=== PATIENT | male | born 1940 | race Caucasian/White ===

== ENCOUNTER 2017-05-29 17:20 | Emergency (ER) | payer MEDICARE ==
[2017-05-29] MEDS ORDERED: Morphine 4 MG/ML Carpuject ONE (17:54)
[2017-05-29] MEDS ORDERED: Ondansetron HCl/PF 4 MG/2 ML Vial ONE (17:54)
[2017-05-29 17:58] LABS: #Basophils 0.1 thou/uL (0.0-0.2); #Eosinphils 0.3 thou/uL (0.0-0.7); #Monocytes 0.8 thou/uL (0.11-0.59); #Neutrophils 4.5 thou/uL (1.40-6.50); %Eosinophils 3.4 % (0.0-10.0); %Lymphocytes 25.9 % (21.0-51.0); %Monocytes 10.3 % (0.0-10.0); Hematocrit 36.8 % (42.0-52.0); Mean Platelet Volume 8.1 fL (7.4-10.4); Red Blood Cell (RBC) Count 3.86 mill/uL (4.70-6.10); White Blood Cell (WBC) Count 7.6 thou/uL (4.8-10.8)
[2017-05-29 18:06] LABS: PTT 33.1 SEC (22.9-36.1); Prothrombin Time 13.3 SEC (12.0-14.7)
[2017-05-29 18:10] LABS: Anion Gap 15 mmol/L (10-20); BUN (Urea Nitrogen) 19 mg/dL (8.4-25.7); Calc. Creatinine Clearance 0 mL/min (70-130); Calcium 8.6 mg/dL (7.8-10.44); Carbon Dioxide 21 mmol/L (23-31); Chloride 105 mmol/L (98-107); Estimated GFR-MDRD 48
[2017-05-29] MEDS ORDERED: Lidocaine 1% 20 ML MDV ONE (18:15)
--- NOTE | 2017-05-29 19:10 | RAD ---
RIGHT WRIST THREE VIEWS 05/29/17 HISTORY: Fall. Right wrist injury. FINDINGS: Impacted comminuted fracture of the distal radius includes a sagittally oriented intra-articular comp onent to the far medial margin of the distal radius with 0.1 cm gap and no significant step-off. Ther e is resultant dorsal tilt. Inclination is maintained. Nondisplaced ulnar styloid avulsion is also ap parent. Osteoarthritic changes are most pronounced at the first carpometacarpal joint. IMPRESSION: Comminuted intra-articular distal right radial fracture with dorsal tilt. POS: [facility]
--- NOTE | 2017-05-29 19:54 | RAD ---
RIGHT WRIST THREE VIEWS 05/29/17 at 1921 hours. HISTORY: Wrist fracture. Reduction. COMPARISON: Earlier exam on the same date. FINDINGS/IMPRESSION: Overlying fiberglass splint is now in place. Dorsal tilt of the comminuted intra-articular distal rig ht radial fracture has been reduced partially. Inclination is maintained. Mild impaction persists. Other findings are stable. POS: [facility]
== END 2017-05-29 19:50 | disposition home or self-care (01) ==
LOC: SCSER 17:20
DX: S52.501A Unspecified fracture of the lower end of right radius, initial encounter for closed fracture (principal); E11.9 Type 2 diabetes mellitus without complications; E78.5 Hyperlipidemia, unspecified; I10 Essential (primary) hypertension; Z87.891 Personal history of nicotine dependence; Z86.73 Personal history of transient ischemic attack (TIA), and cerebral infarction without residual deficits; Z79.84 Long term (current) use of oral hypoglycemic drugs; Z79.899 Other long term (current) drug therapy; W19.XXXA Unspecified fall, initial encounter; Y92.096 Garden or yard of other non-institutional residence as the place of occurrence of the external cause
CPT/HCPCS: 25605; 80048; 85025; 85610; 85730; 96374; 96375; 99406; J2001; J2270; J2405

== ENCOUNTER 2017-06-06 08:50 | Inpatient (IN) | payer MEDICARE ==
[2017-06-06 09:27] LABS: #Eosinphils 0.1 thou/uL (0.0-0.7); #Neutrophils 8.8 thou/uL (1.40-6.50); %Basophils 0.4 % (0.0-1.0); %Eosinophils 0.5 % (0.0-10.0); %Lymphocytes 9.4 % (21.0-51.0); %Monocytes 9.1 % (0.0-10.0); Hematocrit 36.9 % (42.0-52.0); Mean Platelet Volume 6.7 fL (7.4-10.4); White Blood Cell (WBC) Count 10.9 thou/uL (4.8-10.8)
[2017-06-06 09:38] LABS: Lactic Acid - Sepsis 1.9 mmol/L (0.5-2.2)
[2017-06-06 09:42] LABS: ALT (SGPT) 9 U/L (8-55); AST (SGOT) 15 U/L (5-34); Alkaline Phosphatase 48 U/L (40-150); Anion Gap 17 mmol/L (10-20); BUN (Urea Nitrogen) 31 mg/dL (8.4-25.7); Bilirubin, Total 0.5 mg/dL (0.2-1.2); CK (CPK) 102 U/L (30-200); Calc. Creatinine Clearance 0 mL/min (70-130); Calcium 8.9 mg/dL (7.8-10.44); Carbon Dioxide 21 mmol/L (23-31); Chloride 102 mmol/L (98-107); Estimated GFR-MDRD 29; Globulin 3.2 g/dL (2.4-3.5); Lipase 11 U/L (8-78); Protein, Total 6.9 g/dL (5.8-8.1)
--- NOTE | 2017-06-06 09:43 | RAD ---
RADIOGRAPH CHEST 1 VIEW: Date: 06/06/17. Time: 9:11 a.m. HISTORY: A 77-year-old male with dyspnea and fever. COMPARISON: 02/06/16. FINDINGS: Again noted are the sternotomy wires. Cardiac size is at the upper limits of normal. There are bila teral new predominantly interstitial infiltrates, with central predominance. These infiltrates are m ore patchy and alveolar in certain locations on the right. There is no pneumothorax. Lateral costop hrenic angles are not significantly effaced. IMPRESSION: 1. Bilateral paracentral infiltrates, predominantly interstitial, asymmetrically worse on the right side than left. 2. Given the history of fever, pneumonia is favored over noncardiogenic pulmonary edema. 3. Followup is recommended. ALEX [] POS: [facility]
[2017-06-06 09:45] LABS: Troponin I 0.119 ng/mL (< 0.028)
[2017-06-06] MEDS ORDERED: Acetaminophen 500 MG TAB ONE (10:05)
[2017-06-06 11:16] LABS: Bilirubin Negative (Negative); Blood, Urine Negative (Negative); Glucose, Urine (Dipstick) Negative (Negative); Ketone, Urine Negative (Negative); Nitrite Negative (Negative); Protein, Urine (Dipstick) 100 mg/dL (Neg-Trace); Urobilinogen 0.2 mg/dL (0.2-1.0)
[2017-06-06 11:31] LABS: Bacteria/HPF Rare-Few HPF (None Seen); RBC/HPF 0-3 HPF (0-3); Squamous Epithelial 0-3 HPF (0-3); WBC/HPF 0-3 HPF (0-3)
[2017-06-06 11:32] LABS: Hyaline Casts/LPF 0-3 HYALINE CAST LPF (0-3 Hyaline)
[2017-06-06 12:45] VITALS: BMI 25.7
[2017-06-06] MEDS ORDERED: Sodium Chloride 0.9% 1,000 ML IV SCH ×2 (12:45→13:26)
[2017-06-06] MEDS ORDERED: Ondansetron ODT 4 MG TAB SL PRN (12:45)
[2017-06-06] MEDS ORDERED: Acetaminophen 325 MG TAB PO PRN (12:45)
[2017-06-06] MEDS ORDERED: Ondansetron HCl/PF 4 MG/2 ML Vial IVP PRN (12:45)
--- NOTE | 2017-06-06 14:09 | HP ---
DATE OF ADMISSION: 06/06/2017 HISTORY OF PRESENT ILLNESS: This is a 77-year-old white male with history of hypertension, hyperlipi demia, diabetes, and tobacco abuse who is being admitted for pneumonia/shortness of breath. The noreen ent was doing relatively well until 1 week ago where he sustained a fall. At that time it was discov ered that he had a right wrist fracture and was seen by Dr. Camejo and his right wrist was placed in splint. He recently also restarted smoking. Lately he has been somewhat depressed. The of lupe mattson 's anniversary was in January. Over the past several days, he has been having increasing cough, congestion, shortness of breath and this morning presented to the emergency room where he was diagnos ed with bilateral pneumonia. PAST MEDICAL HISTORY: Do not resuscitate, hyperlipidemia, hypertension, diabetes, chronic back pain, neck pain, sciatica, bowel disorder, neuropathy, TIA, coronary artery disease, hypothyroid. PAST SURGICAL HISTORY: Include back surgery x1, status post colectomy for mesenteric ischemia by Dr. Lynch, cardiac catheterization in 08/2013 with three-vessel disease noted, a coronary artery bypass x4 in 08/[address] Cameron, [address] Snyder, right renal artery stent placed by Dr. Rachel soto on 03/2016. FAMILY HISTORY: Father, unknown medical history. Mother with diabetes. Maternal grandmother with s ome unknown cancer and multiple other family members with cancer. SOCIAL HISTORY: He began smoking at the age of 18 years up until 2007 when he stopped. He was hospi talized at that time for a pneumonia. He did well until recently in 2016 when he began smoking again . This may be the reason for his pneumonia. The patient is very interesting. 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 He is now, lives b y himself, does his yard work. 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 He cares for dogs, cats and wild animals at home. He has 1 son and 1 daughter, Brandon. ALLERGIES: None. REVIEW OF SYSTEMS: As above. MEDICATIONS: Aspirin 325 mg daily, fluoxetine 20 mg daily, levothyroxine 75 mg daily, metoprolol 25 1/2 p.o. daily, metformin 1000 b.i.d., lovastatin 20 daily, Ambien 10 at bedtime, [place] 7.5/325 p.o. b.i.d. p.r.n., Lyrica 150 p.o. b.i.d., clonidine 0.1 mg daily p.r.n. elevated blood pressure. PHYSICAL EXAMINATION: VITAL SIGNS: Temperature 98.3, pulse 68, respirations 18, pulse ox 88, blood pressure 103/48. GENERAL: The patient has a marked productive cough. HEENT: Clear. HEART: Regular rate and rhythm. LUNGS: Lungs have bilateral rhonchi and rales. ABDOMEN: Soft. EXTREMITIES: With no edema. : Colostomy in place. LABORATORY DATA: White count 10.9, H&H 11 and 36, platelet 161. Sodium 136, potassium 4.4, creatini ne 2.1, BUN 31, glucose 194, troponin I 0.119, BNP 576. Chest x-ray; bilateral infiltrates, right worse than left. ASSESSMENT: 1. Bilateral pneumonia, most likely a large part due to him restarting his tobacco abuse. 2. Tobacco abuse. 3. Anxiety/depression, particularly due to the passing of his in 01/2016. 4. Hypertension. 5. Hyperlipidemia. 6. Diabetes. 7. Chronic low back pain. 8. Coronary artery disease x3. 9. Hypothyroid. 10. Bowel disorder with colostomy by Dr. Lynch. 11. Fracture, right wrist. PLAN: 1. Hydrate. 2. Albuterol neb treatments q.6h. 3. IV Levaquin. 4. Do not resuscitate. 5. PT in the a.m.
[2017-06-06] MEDS: HYDROcodone/Acetaminophen 7.5/325 mg Tablet PO PRN ×2 (15:19→21:29)
[2017-06-06] MEDS ORDERED: Simvastatin 5 MG TAB PO SCH (17:00)
[2017-06-06] MEDS ORDERED: metFORMIN 500 MG TAB PO SCH (17:00)
[2017-06-06] MEDS ORDERED: Acetaminophen 1,000 MG in Premix Bag 1 BAG IVPB SCH (17:00)
[2017-06-06] MEDS ORDERED: predniSONE 20 MG TAB PO SCH (18:30)
[2017-06-06] MEDS: Sodium Chloride 0.45% 1,000 ML IV SCH (18:45)
[2017-06-06] MEDS: cefTRIAXone\\ROCEPHIN 2 GM in Sodium Chloride 0.9% 100 ML IVPB SCH (18:46)
[2017-06-06] MEDS ORDERED: Albuterol Sulfate 1.25 MG/3 ML NEB NEB SCH (19:00)
[2017-06-06] MEDS ORDERED: Azithromycin 500 MG in Sodium Chloride 0.9% 250 ML 250 ML IVPB SCH (20:00)
--- NOTE | 2017-06-06 21:24 | CON ---
DATE OF CONSULTATION: 06/06/2017 SERVICE: Pulmonary Medicine. REASON FOR CONSULTATION: Respiratory failure. HISTORY OF PRESENT ILLNESS: The patient is a 77-year-old white male with past medical history significant for a little bit of COPD. He was in his usual state of health until roughly 3 days ago. He started having myalgia, malaise, and fevers. They were initially 101, but it spiked up to 103. Several people in the house have been sick with a viral prodrome. He currently denies any nausea, vomiting, or diarrhea. He has a colostomy, but there has been no change to his output. He has not had any hot, red, swollen joints, or arthralgias. Otherwise, he has no focalizing symptoms. He does have a cough, bringing up yellow sputum. PAST MEDICAL HISTORY: 1. Hypertension. 2. Dyslipidemia. 3. Type 2 diabetes mellitus. 4. Neuropathy. 5. Coronary artery disease. 6. Hypothyroidism. 7. Chronic obstructive pulmonary disease, mild. 8. History of transient ischemic attack. 9. Chronic pain syndromes including back pain, neck pain, and sciatica. PAST SURGICAL HISTORY: 1. Back surgery, several. 2. Colectomy for mesenteric ischemia with colostomy formation. 3. Coronary bypass graft x4 vessels. 4. Renal artery stenosis with renal artery stent placement. FAMILY HISTORY: Noncontributory. SOCIAL HISTORY: He has a greater than [id number] history of smoking. He quit 10 years ago, but actually started back up earlier this year. He is a and currently lives by himself. He denies any significant alcohol use or illicit drug use. He has no significant exposures to chemicals, dust, asbestos, or tuberculosis. ALLERGIES: No known drug allergies. MEDICATIONS: Lists of his inpatient medication were reviewed. Multiple updates were made. REVIEW OF SYSTEMS: General, head, ears, eyes, nose, throat, cardiovascular, respiratory, GI, , musculoskeletal, neurologic, and skin is negative except as mentioned in the HPI. PHYSICAL EXAMINATION: VITAL SIGNS: Afebrile, pulse 68, blood pressure 105/44, respirations 20, saturation 100% on 50% Ventimask. HEENT: Normocephalic, atraumatic. Sclerae are white. Conjunctivae pink. Oral and nasal mucosa are dry. GENERAL: The patient is awake and alert. He was previously in significant respiratory distress, but with the application of higher amounts of oxygen, he settled down significantly. LUNGS: Bilateral rhonchi are present. Slightly prolonged expiratory phase. There is minimal wheezing that clear with cough. No crackles are appreciated in the dependent regions. HEART: Normal rate, regular. ABDOMEN: Soft, nontender, nondistended. Bowel sounds positive. MUSCULOSKELETAL: No cyanosis or clubbing. He has got dry skin. Minimal tenting is present. No pitting edema is present. GENITOURINARY: No Hayden. NEUROLOGICAL: Grossly nonfocal. LABORATORY DATA: WBC 10.9, hemoglobin 11.8, platelets 161,000. Neutrophil count is 81%. Creatinine is slightly above baseline of 2.19, BUN 31. Basic metabolic profile and liver function studies are unremarkable. BNP 576, troponin 0.119. Lactate 1.9, glucose 140. Urinalysis is unremarkable. Influenza A and B are negative. IMAGING: Chest x-ray demonstrates findings consistent with diffuse interstitial changes which are slightly prominent. Otherwise, I do not see any focal consolidating lesion. Lung rodríguez are slightly enlarged. ASSESSMENT: 1. Acute hypoxic respiratory failure. 2. Community-acquired pneumonia. 3. Acute kidney injury. 4. Non-ST elevation myocardial infarction, likely secondary to demand. 5. Chronic obstructive pulmonary disease with mild exacerbation. 6. Viral prodrome. PLAN: I will get a respiratory virus panel and empirically start him on Tamiflu. This can be discontinued if RVP is negative. Ortho consultation would be placed for his recent wrist fracture. I am going to change his antibiotics, azithromycin and Rocephin, targeting treatment for a severe community-acquired pneumonia. We will initiate him on a brief course of prednisone and make certain that he has frequent nebulized medications. Pulmonary Critical Care will continue to follow certainly while the patient remains in house. Ultimately, once he recovers from this, he will require repeat chest x-ray in 4-6 weeks to make certain these infiltrates have cleared. We may need to repeat imaging sooner if dictated by clinical course. JERONIMO
[2017-06-06] MEDS: Aspirin 325 mg Enteric Coated Tablet PO SCH (21:29)
[2017-06-06] MEDS: Oseltamivir 75 MG CAP PO SCH (21:29)
[2017-06-06] MEDS: Zolpidem Tartrate 5 MG TAB PO PRN (22:58)
[2017-06-06] MEDS ORDERED: Acetaminophen 500 MG TAB PO PRN (23:00)
[2017-06-07 05:32] LABS: #Lymphocytes 0.4 thou/uL (1.20-3.40); #Monocytes 0.4 thou/uL (0.11-0.59); %Lymphocytes 4.3 % (21.0-51.0); %Monocytes 3.7 % (0.0-10.0); Mean Platelet Volume 7.6 fL (7.4-10.4); Red Blood Cell (RBC) Count 3.43 mill/uL (4.70-6.10); White Blood Cell (WBC) Count 9.7 thou/uL (4.8-10.8)
[2017-06-07 05:50] LABS: Anion Gap 13 mmol/L (10-20); BUN (Urea Nitrogen) 28 mg/dL (8.4-25.7); Calc. Creatinine Clearance 36 mL/min (70-130); Calcium 7.9 mg/dL (7.8-10.44); Carbon Dioxide 19 mmol/L (23-31); Chloride 107 mmol/L (98-107); Estimated GFR-MDRD 37
[2017-06-07] MEDS: Sodium Chloride 0.45% 1,000 ML IV SCH ×2 (06:02→18:35)
[2017-06-07] MEDS: Levothyroxine Sodium 75 MCG TAB PO SCH (06:02)
[2017-06-07] MEDS ORDERED: predniSONE 20 MG TAB PO SCH (08:00)
[2017-06-07] MEDS ORDERED: Dextrose 50% Abboject 50 ML SYRINGE SLOW IVP PRN (08:21)
[2017-06-07] MEDS ORDERED: Dextrose 5% in Water 1,000 ML IV PRN (08:21)
[2017-06-07] MEDS: FLUoxetine HCl 20 MG CAP PO SCH (09:06)
[2017-06-07] MEDS: Oseltamivir 75 MG CAP PO SCH (09:06)
[2017-06-07] MEDS: predniSONE 20 MG TAB PO SCH (09:06)
--- NOTE | 2017-06-07 09:08 | PRG ---
DATE OF SERVICE: 06/07/2017 SUBJECTIVE: The patient still has a remarkable cough. However, he is feeling somewhat better. Last night, he did spike a fever and was having respiratory difficulty. This a.m., he is doing much bett er. OBJECTIVE: VITAL SIGNS: Temperature 97.5, pulse 87, respirations 20, pulse ox 95% on 3 liters O2, blood pressur e 140/62. HEART: Regular rate and rhythm. LUNGS: With bilateral rales and rhonchi, no wheezing noted. ABDOMEN: Soft. LABORATORY DATA: White count 9.7, H&H is 10 and 34. Sodium 134, potassium 4.5, creatinine 1.8, BUN 28, blood sugar 196, 253, 232. ASSESSMENT: 1. Acute hypoxic respiratory failure. 2. Community-acquired pneumonia. 3. Acute kidney injury. 4. Chronic obstructive pulmonary disease exacerbation. 5. Tobacco abuse. 6. Anxiety. 7. Hypertension. 8. Hyperlipidemia. 9. Diabetes. 10. Coronary artery disease. 11. Hypothyroidism. 12. Fracture, right wrist. PLAN: 1. Continue hydration. 2. Continue neb treatments, steroids and IV antibiotics. 3. Encourage the patient to sit in a chair. 4. Begin insulin sliding scale moderate with regular insulin. 5. We will start Levemir 10 units at bedtime daily. We will continue to follow.
[2017-06-07] MEDS: HYDROcodone/Acetaminophen 7.5/325 mg Tablet PO PRN ×3 (09:26→21:45)
[2017-06-07] MEDS: Insulin Regular 300 UNITS/3 ML VIAL SC PRN ×2 (12:42→17:33)
--- NOTE | 2017-06-07 13:24 | PRG ---
DATE OF SERVICE: 06/07/2017 SERVICE: Pulmonary Medicine. INTERVAL HISTORY: The patient is doing great from a respiratory standpoint. His myalgia and malaise is much improved. Strength is improving a little bit. He continues to have cough and is bringing u p a little bit of sputum. Otherwise, his respiratory status is stable/improving. He is on 2 liters nasal cannula. The saturations are doing fantastic. PHYSICAL EXAMINATION: VITAL SIGNS: Afebrile, pulse 69, blood pressure 99/54, respirations 18, saturation 96% on 3 liters n lydia cannula. GENERAL: Patient is awake, alert, no apparent distress. LUNGS: Bilateral rhonchi are present. There is no prolonged expiratory phase or wheezing appreciate d. No dependent crackles are appreciated. HEART: Normal rate, regular. ABDOMEN: Soft, nontender, nondistended. Bowel sounds positive. MUSCULOSKELETAL: No cyanosis or clubbing. No pitting in the bilateral lower extremities. NEUROLOGIC: Grossly nonfocal. LABORATORY DATA: WBC 9.7, hemoglobin 10.7, platelets 164,000, neutrophil count is 92%. Creatinine 1 .81 and gently downtrending, BUN 28, bicarbonate 19. Basic metabolic profile is otherwise unremarkab le. Urinalysis is unremarkable. Respiratory virus profile is positive for rhinovirus. Influenza A and B is negative, blood cultures x2 are negative. ASSESSMENT: 1. Acute hypoxic respiratory failure. 2. Community-acquired pneumonia. 3. Acute kidney injury, resolving. 4. Chronic obstructive pulmonary disease with acute exacerbation secondary to pneumonia and rhinovir us. 5. Non-ST elevation myocardial infarction, secondary to demand. PLAN: I will discontinue the Tamiflu. Otherwise, supportive care will be continued. From purely re spiratory perspective, the patient is stable for transition out of the [facility] to the medical and/or tel emetry unit. He will require repeat chest x-ray in 4-6 weeks in the outpatient setting to verify darrell t the infiltrate resolves. Along the way, if he deteriorates clinically, we will get a chest x-ray s ooner. Pulmonary will continue to follow while the patient remains in house.
--- NOTE | 2017-06-07 14:08 | CON ---
DATE OF CONSULTATION: 06/07/2017 DATE OF ADMISSION: 06/06/2017 HISTORY OF PRESENT ILLNESS: Mr. Goss is a 77-year-old male with a history of multiple medical problems. A week ago, he sustained a fall and he has noted a wrist fracture. Patient started smoking. He is depressed. His has recently passed. Patient had noted increased shortness of breath and was admitted by Dr. Landaverde for bilateral pneumonia. We are consulted for evaluation. PAST MEDICAL HISTORY: Hypertension, diabetes, chronic back pain, sciatica, bowel neuropathy, TIA, coronary artery disease, hypothyroid, and diabetes. PAST SURGICAL HISTORY: Previous back surgery, colectomy, cardiac catheterization, 3-vessel disease, coronary artery bypass, MEDICATIONS: Aspirin, fluoxetine, levothyroxine, metoprolol, metformin, lovastatin, Ambien, [place], clonidine, Lyrica. ALLERGIES: No known drug allergies. SOCIAL HISTORY: History of smoking, restarted. The patient's recently . 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 REVIEW OF SYSTEMS: Noncontributory. PHYSICAL EXAMINATION: VITAL SIGNS: Temperature 97.5, 57 pulse, 20 respiratory rate, 95% on 3 liters. GENERAL: Alert and oriented male in no acute distress. EXTREMITIES: Right upper extremity, the patient has a splint. NVID intact. He has got no gross deformity changes. There are no open wounds draining. Patient's swelling is improved. His range of motion is improved. He has got sensate diminished in the median distribution to his thumb, index, and ring finger. He is flexing and extending his fingers abducting and adducting his fingers. He has got brisk cap refill. IMPRESSION: Right distal radius fracture. PLAN: The patient will remain in a splint for 1 more week and I will follow up with him in a week. At that time, while he is undergoing this pneumonia, we will transition to a cast at that time versus remaining in a splint. We will reschedule his appointment for that. JERONIMO
[2017-06-07] MEDS ORDERED: Pregabalin 75 MG CAP PO SCH (17:30)
[2017-06-07] MEDS: cefTRIAXone\\ROCEPHIN 2 GM in Sodium Chloride 0.9% 100 ML IVPB SCH (18:35)
[2017-06-07] MEDS: Azithromycin 500 MG in Sodium Chloride 0.9% 250 ML 250 ML IVPB SCH (21:28)
[2017-06-07] MEDS: Simvastatin 5 MG TAB PO SCH (21:28)
[2017-06-07] MEDS: Aspirin 325 mg Enteric Coated Tablet PO SCH (21:29)
[2017-06-07] MEDS: Zolpidem Tartrate 5 MG TAB PO PRN (21:29)
[2017-06-07] MEDS: Insulin Detemir 100 UNITS/ML 10 UNITS in Pre-Filled Syringe 1 EACH SC SCH (21:30)
[2017-06-08] MEDS: cloNIDine 0.1 MG TAB PO PRN ×2 (04:04→16:42)
[2017-06-08] MEDS: HYDROcodone/Acetaminophen 7.5/325 mg Tablet PO PRN ×3 (04:05→19:55)
[2017-06-08] MEDS: Sodium Chloride 0.45% 1,000 ML IV SCH ×2 (04:10→19:45)
[2017-06-08 05:13] LABS: #Lymphocytes 0.9 thou/uL (1.20-3.40); #Monocytes 0.7 thou/uL (0.11-0.59); #Neutrophils 10.1 thou/uL (1.40-6.50); %Basophils 0.1 % (0.0-1.0); %Lymphocytes 7.7 % (21.0-51.0); %Monocytes 6.3 % (0.0-10.0); Mean Platelet Volume 7.5 fL (7.4-10.4); Red Blood Cell (RBC) Count 3.25 mill/uL (4.70-6.10); White Blood Cell (WBC) Count 11.7 thou/uL (4.8-10.8)
[2017-06-08 05:36] LABS: Anion Gap 9 mmol/L (10-20); BUN (Urea Nitrogen) 28 mg/dL (8.4-25.7); Calc. Creatinine Clearance 46 mL/min (70-130); Calcium 8.3 mg/dL (7.8-10.44); Carbon Dioxide 22 mmol/L (23-31); Chloride 108 mmol/L (98-107); Estimated GFR-MDRD 48
[2017-06-08] MEDS: Levothyroxine Sodium 75 MCG TAB PO SCH (05:54)
--- NOTE | 2017-06-08 08:41 | PRG ---
DATE OF SERVICE: 06/08/2017 SUBJECTIVE: The patient is doing better this morning. Cough is improving. He is walking more in th e room. OBJECTIVE: VITAL SIGNS: Temperature 97.0, pulse 56, respirations 22, pulse ox 94 on 3 liters O2, blood pressure 169/78. HEART: Regular rate and rhythm. LUNGS: Decreased rhonchi and rales, improving breath sounds. ABDOMEN: Soft. EXTREMITIES: With no edema. LABORATORY: White count 11.7, H&H 10 and 32. Sodium 135, potassium 4.3, creatinine 1.42, BUN 28, bl ood sugar 116 and 109. ASSESSMENT: 1. Community-acquired pneumonia. 2. Acute hypoxic respiratory failure. 3. Acute kidney injury. 4. Chronic obstructive pulmonary disease exacerbation, mild. 5. Tobacco abuse. 6. Anxiety. 7. Hypertension. 8. Hyperlipidemia. 9. Diabetes. 10. Coronary artery disease. 11. Hypothyroid. 12. Fracture right wrist. PLAN: 1. Transfer to medical floor. 2. Increase activity to include walking in the hallway. 3. Continue antibiotics, nebulizer treatments and steroids. 4. Will begin losartan 50 q.a.m. and Norvasc 2.5 at bedtime and will continue to hold metoprolol for now.
[2017-06-08] MEDS: predniSONE 20 MG TAB PO SCH (08:54)
[2017-06-08] MEDS: FLUoxetine HCl 20 MG CAP PO SCH (08:54)
[2017-06-08] MEDS: Pregabalin 75 MG CAP PO SCH ×2 (08:54→22:00)
[2017-06-08] MEDS: Losartan 25 MG TAB PO SCH (09:13)
--- NOTE | 2017-06-08 16:49 | PRG ---
DATE OF SERVICE: 06/08/2017 SERVICE: Pulmonary Medicine. INTERVAL HISTORY: The patient is doing fine from a respiratory standpoint. He is breathing very com fortably on 2 liters nasal cannula. We dropped down 1 liter and he seems to be tolerating this okay. He is tolerating p.o. He has been up working with physical therapy. Strength is actually improvin g dramatically. PHYSICAL EXAMINATION: VITAL SIGNS: Afebrile, pulse 68, blood pressure 156/67, respirations 20, saturation 95% on 4 liters nasal cannula again. HEENT: Normocephalic, atraumatic. Sclerae are white, conjunctivae pink. Oral and nasal mucosa is m oist without lesions. LUNGS: Decreased air entry. There is no prolonged expiratory phase, wheezing or crackles. Rhonchi are present. HEART: Normal rate, regular. ABDOMEN: Soft, nontender, nondistended, bowel sounds positive. MUSCULOSKELETAL: No cyanosis or clubbing. No pitting in the bilateral lower extremities. NEUROLOGIC: Grossly nonfocal. LABORATORY DATA: WBC 11.7, hemoglobin 10.2, platelets 192,000. Creatinine 1.42 and trending downwar d, BUN is 28, anion gap 9, bicarbonate 22. Potassium 4.3. Respiratory virus panel was positive for adenovirus. Blood cultures are growing gram positive cocci in 1 out of 2. The species is unknown presently. Inf luenza A and B is unremarkable. ASSESSMENT: 1. Acute hypoxic respiratory failure. 2. Community-acquired pneumonia. 3. Acute kidney injury, resolving. 4. Chronic obstructive pulmonary disease with acute exacerbation, secondary to pneumonia, rhinovirus . 5. Non-ST elevation myocardial infarction. PLAN: We will continue our current antibiotics. We can switch over to p.o. assuming that this blood culture is a contaminant. If not, we will have to determine what our sensitivities are before sendi ng him home. He will require repeat chest x-ray in 4-6 weeks. Pulmonary will continue to follow brenden thurston he remains in house for the time being.
[2017-06-08] MEDS: cefTRIAXone\\ROCEPHIN 2 GM in Sodium Chloride 0.9% 100 ML IVPB SCH (19:56)
[2017-06-08] MEDS: Insulin Regular 300 UNITS/3 ML VIAL SC PRN (21:58)
[2017-06-08] MEDS: Insulin Detemir 100 UNITS/ML 10 UNITS in Pre-Filled Syringe 1 EACH SC SCH (21:58)
[2017-06-08] MEDS: Azithromycin 500 MG in Sodium Chloride 0.9% 250 ML 250 ML IVPB SCH (21:59)
[2017-06-08] MEDS: Aspirin 325 mg Enteric Coated Tablet PO SCH (21:59)
[2017-06-08] MEDS: Amlodipine 5 MG TAB PO SCH (22:00)
[2017-06-08] MEDS: Zolpidem Tartrate 5 MG TAB PO PRN (22:08)
[2017-06-08] MEDS: Simvastatin 5 MG TAB PO SCH (22:10)
[2017-06-09] MEDS: HYDROcodone/Acetaminophen 7.5/325 mg Tablet PO PRN ×4 (03:14→20:52)
[2017-06-09] MEDS: Levothyroxine Sodium 75 MCG TAB PO SCH (06:41)
[2017-06-09] MEDS: Pregabalin 75 MG CAP PO SCH ×2 (07:24→20:51)
[2017-06-09] MEDS: predniSONE 20 MG TAB PO SCH (07:24)
[2017-06-09] MEDS: FLUoxetine HCl 20 MG CAP PO SCH (07:24)
[2017-06-09] MEDS: Losartan 25 MG TAB PO SCH (07:25)
[2017-06-09] MEDS: hydrALAZINE 20 MG/ML VIAL SLOW IVP PRN ×2 (07:26→16:42)
--- NOTE | 2017-06-09 08:55 | PRG ---
DATE OF SERVICE: 06/09/2017 SUBJECTIVE: This morning the patient is quite agitated. Complained of right wrist pain, left hip pa in, abdominal pain and headache. No complaints of chest pain. OBJECTIVE: VITAL SIGNS: Blood pressure 200/98, pulse 68, respirations 20, pulse oximetry 94% on 3 liters O2. GENERAL: The patient is agitated this morning. HEART: Regular rate and rhythm. LUNGS: With bilateral expiratory wheezing. ABDOMEN: Soft. EXTREMITIES: No edema. LABORATORY: Viral panel reveals positive rhinovirus. Blood sugar 202, 268, 122. ASSESSMENT: 1. Community-acquired pneumonia. 2. Acute hypoxic respiratory failure. 3. Agitation. I suspect a lot related to anxiety and depression. This has been somewhat progressin g lately. His did pass away recently in the past year or two. 4. Acute kidney disease. 5. Mild chronic obstructive pulmonary disease exacerbation. 6. Tobacco abuse. The patient has been increasing issues at home. 7. Anxiety. 8. Hypertension. 9. Hyperlipidemia. 10. Diabetes. 11. Coronary artery disease. 12. Hypothyroid. 13. Fracture of right wrist. PLAN: 1. Dr. Benitez to reevaluate. 2. We will begin Zoloft 50 daily. 3. We will temporarily increase his pain medications. 4. Consult Dr. Neal this a.m. 5. I believe depression and anxiety is a big component of his agitation.
--- NOTE | 2017-06-09 09:51 | PQF ---
CLINICAL DOCUMENTATION IMPROVEMENT CLARIFICATION FORM: ICD-10 Updated PLEASE DO AN ADDENDUM TO THE PROGRESS NOTE WITH ANY DOCUMENTATION UPDATES OR ADDITIONS AND CARRY THROUGH TO DC SUMMARY. THANK YOU. DATE: 06/09 ATTN: DR. ADALID BORGES Please exercise your independent, professional judgment in responding to the clarification form. Clinical indicators are provided on the bottom of this form for your review Please check appropriate box(s): [ ] Sepsis due to: (Pna, UTI, gangrenous gall bladder, etc.) [ ] Severe sepsis with acute organ dysfunction of: (Examples: respiratory failure, encephalopathy, acute kidney failure, other) [ ] Localized infection without sepsis [ ] Other diagnosis [ ] Unable to determine In addition, please specify: Present on Admission (POA): [ ] Yes [ ] No [ ] Unable to determine For continuity of documentation, please document condition throughout progress notes and discharge summary. Thank You. CLINICAL INDICATORS - SIGNS / SYMPTOMS / LABS ER PRESENTATION 06/06: RA SAT ON ARRIVAL: 77%, PLACED ON 2L THEN CPAP T: 101.9 RR: 18-24 BP: 77/38 - 112/53 WBC: 10.9 - 11.7 (06/06 - 06/08) RISK FACTORS: B COMMUNITY ACQUIRED PNEUMONIA ACUTE HYPOXIC RESPIRATORY FAILURE CK TOBACCO ABUSE TREATMENTS: IMCU ADMISSION IV ANTIBIOTICS (ROCEPHIN & ZITHROMAX 06/06 - PRESENT) IVF (12 NS 06/06 - PRESENT) PULMONOLOGY CONSULT THANK YOU! Yenny (This form is maintained as a part of the permanent medical record) 2014 [employer]. All Rights Reserved Yenny Clayton RN, BSN [email or web address] Office: [phone] [facility] CENTERJavad
[2017-06-09] MEDS ORDERED: Furosemide 40 MG/4 ML VIAL SLOW IVP SCH (13:45)
--- NOTE | 2017-06-09 13:55 | PRG ---
DATE OF SERVICE: 06/09/2017 SERVICE: Pulmonary Medicine. INTERVAL HISTORY: The patient is doing fine from a respiratory standpoint. His strength is very poor. He got up into a chair with the assistance of his family today. Otherwise, he is coughing, but bringing up less sputum, what he sees is a good thing. PHYSICAL EXAMINATION: VITAL SIGNS: Afebrile, pulse 68, blood pressure 212/93, respirations 20 and saturation 91% on 3 liters nasal cannula. GENERAL: The patient is awake and alert, in no apparent distress. LUNGS: Excellent air entry. There are crackles present. Rhonchi are much improved. No expiratory wheezing is there. HEART: Normal rate and regular. ABDOMEN: Soft, nontender and nondistended. Bowel sounds are positive. MUSCULOSKELETAL: No cyanosis or clubbing. There is no pitting in the bilateral lower extremities. NEUROLOGIC: Grossly nonfocal. LABORATORY DATA: Blood sugars ranged from 109-268. One out of two blood cultures growing micrococcus species, likely contaminant. Respiratory virus panel is positive for rhinovirus. The Influenza A and B is negative. ASSESSMENT: 1. Acute hypoxic respiratory failure. 2. Community-acquired pneumonia. 3. Chronic obstructive pulmonary disease with acute exacerbation secondary to pneumonia and rhinovirus. 4. Non-ST elevation myocardial infarction. 5. Acute kidney injury, resolved. PLAN: I will provide the patient with a dose of Lasix today. He got a lot of saline in the volume resuscitation, appropriately. That being said, he is not mobilizing it so well. This is likely, impart, contributing to his elevated blood pressure. Additionally, Dr. Neal was consulted today. Pulmonary will continue to follow for an additional 24 hours while we work on mobilizing this patient. JERONIMO
[2017-06-09] MEDS ORDERED: Ondansetron HCl/PF 4 MG/2 ML Vial IVP PRN (18:24)
[2017-06-09] MEDS ORDERED: Amlodipine 5 MG TAB PO SCH ×2 (18:30→18:45)
[2017-06-09] MEDS: cefTRIAXone\\ROCEPHIN 2 GM in Sodium Chloride 0.9% 100 ML IVPB SCH (18:46)
[2017-06-09] MEDS: Amlodipine 5 MG TAB PO SCH (20:47)
[2017-06-09] MEDS: Insulin Detemir 100 UNITS/ML 10 UNITS in Pre-Filled Syringe 1 EACH SC SCH (20:51)
[2017-06-09] MEDS: Aspirin 325 mg Enteric Coated Tablet PO SCH (20:51)
[2017-06-09] MEDS: Zolpidem Tartrate 5 MG TAB PO PRN (20:52)
[2017-06-09] MEDS: Simvastatin 5 MG TAB PO SCH (20:53)
[2017-06-10] MEDS: cefTRIAXone\\ROCEPHIN 2 GM in Sodium Chloride 0.9% 100 ML IVPB SCH (02:10)
[2017-06-10] MEDS: HYDROcodone/Acetaminophen 7.5/325 mg Tablet PO PRN ×3 (02:18→17:55)
[2017-06-10] MEDS: Azithromycin 500 MG in Sodium Chloride 0.9% 250 ML 250 ML IVPB SCH ×2 (02:20→03:46)
[2017-06-10 04:37] LABS: #Monocytes 0.9 thou/uL (0.11-0.59); #Neutrophils 8.9 thou/uL (1.40-6.50); %Basophils 0.1 % (0.0-1.0); %Eosinophils 0.1 % (0.0-10.0); %Lymphocytes 9.3 % (21.0-51.0); %Monocytes 8.6 % (0.0-10.0); Hematocrit 32.6 % (42.0-52.0); Mean Platelet Volume 7.2 fL (7.4-10.4); Red Blood Cell (RBC) Count 3.36 mill/uL (4.70-6.10); White Blood Cell (WBC) Count 10.9 thou/uL (4.8-10.8)
[2017-06-10 04:58] LABS: Anion Gap 12 mmol/L (10-20); BUN (Urea Nitrogen) 24 mg/dL (8.4-25.7); Calc. Creatinine Clearance 52 mL/min (70-130); Calcium 8.7 mg/dL (7.8-10.44); Carbon Dioxide 27 mmol/L (23-31); Chloride 107 mmol/L (98-107); Estimated GFR-MDRD 56; Magnesium 1.3 mg/dL (1.6-2.6)
--- NOTE | 2017-06-10 05:47 | CON ---
DATE OF CONSULTATION: 06/09/2017 REASON FOR CONSULTATION: Hypertension, possible pneumonia, history of coronary artery disease. HISTORY OF PRESENT ILLNESS: Mr. Goss is a very pleasant gentleman with a history of labile hypertens ion, also previous bypass surgery. He has had a severe problem with continued blood pressure problem s here, he also thought to likely have viral pneumonia. Patient's blood pressure has been extremely labile at home sometimes in the 200 systolic. Sometime i n the 90s systolic. It is a longstanding problem for him. MEDICATIONS PRIOR TO ADMISSION: Metoprolol 12.5 mg twice a day and amlodipine if needed with clonidi ne rarely. He received furosemide recently and beginning to diurese well. ALLERGIES: METHYLPREDNISOLONE. REVIEW OF SYSTEMS: Constitutional: No significant weight gain or loss. Vision: No changes. Heari ng: No changes. Pulmonary: Positive for shortness of breath. Cardiac: No chest pain. Gastrointe stinal: No nausea, vomiting, diarrhea. Skin: No rashes. Neurologic: No unilateral weakness or nu mbness. Psychiatric: No unusual depression or anxiety. Hematologic: No unusual bruising. Genitou rinary: No burning with urination. PHYSICAL EXAMINATION: GENERAL: A pleasant gentleman states that he was not feeling well at all, had hydralazine, but it ma de him nauseated. VITAL SIGNS: Blood pressure most recently was 200 systolic, now it is in the 180s after hydralazine, pulses 76. EYES: Sclerae nonicteric. Mouth mucous membranes moist. NECK: Supple, no lymphadenopathy. LUNGS: Diffuse rhonchi and some scattered rales. No wheezing. CARDIOVASCULAR: Normal S1, normal S2. ABDOMEN: Soft, nontender. EXTREMITIES: There is no edema. LABORATORY AND X-RAY FINDINGS: BNP was very high on 06/06 at 576. The EKG is sinus rhythm. T-wave inversion anteriorly. The chest x-ray shows interstitial infiltrate s. ASSESSMENT: 1. Probable pneumonia. 2. Diastolic heart failure. 3. Labile hypertension. PLAN: 1. Agree with diuretics. 2. We will add clonidine if needed. 3. Add losartan.
[2017-06-10] MEDS: Levothyroxine Sodium 75 MCG TAB PO SCH (08:00)
--- NOTE | 2017-06-10 08:23 | PRG ---
DATE OF SERVICE: 06/10/2017 SUBJECTIVE: The patient is feeling much better this morning, becoming more active. Asking to go jacoby e. OBJECTIVE: VITAL SIGNS: Blood pressure 168/79, 182/83, temperature 98.8. I's and O's balanced at approximately -50. HEART: Regular rate and rhythm. LUNGS: Decreased wheezing, but occasional rhonchi and rales still present. ABDOMEN: Soft, nontender. LABORATORY: White count 10.9, H&H 10 and 32. Sodium 142, potassium 3.7, creatinine 1.25, blood suga r 116, 177, 101. ASSESSMENT: 1. Acute hypoxic respiratory failure. 2. Community-acquired pneumonia. 3. Sepsis due to pneumonia present on admission. 4. Tobacco abuse. 5. Acute kidney injury. 6. Depression. 7. Mild to moderate chronic obstructive pulmonary disease. 8. Hypertension. 9. Hyperlipidemia. 10. Diabetes. 11. Coronary artery disease. 12. Hypothyroid. 13. Fracture right wrist. PLAN: 1. Continue IV Lasix. 2. Continue to monitor blood pressure. 3. Zoloft initiated. 4. Discharge soon.
[2017-06-10] MEDS: predniSONE 20 MG TAB PO SCH (10:05)
[2017-06-10] MEDS: Pregabalin 75 MG CAP PO SCH ×2 (10:06→20:21)
[2017-06-10] MEDS: FLUoxetine HCl 20 MG CAP PO SCH (10:06)
[2017-06-10] MEDS: Losartan 25 MG TAB PO SCH (10:07)
[2017-06-10] MEDS: Furosemide 40 MG/4 ML VIAL SLOW IVP SCH (10:09)
--- NOTE | 2017-06-10 15:09 | PRG ---
DATE OF SERVICE: 06/10/2017 SUBJECTIVE: Mr. Goss is feeling better. He is breathing better. He is up on the chair. His blood pressure is not nearly as high today. OBJECTIVE: VITAL SIGNS: His blood pressure is 150/70 and pulse 70. LUNGS: Diffuse rhonchi and some wheezing. CARDIAC: Normal S1 and S2. ABDOMEN: Soft and nontender. EXTREMITIES: He has no edema. ASSESSMENT: 1. Labile hypertension, improved. 2. Diastolic heart failure, improved. 3. Coronary artery disease. PLAN: 1. Losartan 50 mg a day. 2. Furosemide 20 mg a day. 3. Amlodipine 2.5 mg a day. 4. Hopefully, can be home tomorrow. Still wheezing now and has rhonchi. I do not think he is ready today.
[2017-06-10] MEDS ORDERED: Magnesium Sulfate 4 GM in Sodium Chloride 0.9% 250 ML 250 ML IVPB SCH (18:00)
--- NOTE | 2017-06-10 18:51 | PRG ---
DATE OF SERVICE: 06/10/2017 SERVICE: Pulmonary Medicine. INTERVAL HISTORY: The patient is doing abstaining from a respiratory standpoint. He is much more mo bile. He denies any current nausea or vomiting. He is coughing, but is improved and it is bringing up less sputum. He went for a walk a couple of times a day. He is a little unstable on his feet. Vicenta benavides raises some concerns about his strength. That being said, the patient indicates he is perfectl y fine from to go home. PHYSICAL EXAMINATION: VITAL SIGNS: Afebrile, pulse is 77, blood pressure 167/80, respirations 18, saturation 99% on 2 lite rs nasal cannula. GENERAL: Patient is awake, alert, in no apparent distress. LUNGS: Decent air entry. Rhonchi are present throughout bilateral lung rodríguez. There is a prolonge d expiratory phase, but I do not appreciate wheezing or crackles. HEART: Normal rate, regular. ABDOMEN: Soft, nontender, nondistended, bowel sounds positive. MUSCULOSKELETAL: No cyanosis or clubbing. No pitting in the bilateral lower extremities. NEUROLOGIC: Grossly nonfocal. LABORATORY DATA: WBC 10.9, hemoglobin 10.5, platelets 261,000. Creatinine 1.25, which continues to improve. Basic metabolic profile is otherwise unremarkable. Magnesium is low at 1.3. Respiratory v irus panel is positive for rhinovirus. ASSESSMENT: 1. Acute hypoxic respiratory failure. 2. Community-acquired pneumonia. 3. Chronic obstructive pulmonary disease with acute exacerbation secondary to pneumonia and rhinovir us. 4. Non-ST elevation myocardial infarction. 5. Acute kidney injury, resolved. PLAN: We will replace potassium and magnesium today. We will continue our mobilization efforts jalen mena. At this point, the patient has no further requirements for inpatient Pulmonary or Critic al Care opinion. As such, we will sign off. Please call with additional questions or concerns theodore mena. Ultimately, he will need a repeat chest x-ray in 4-6 weeks into the future to verify that these infiltrates resolved.
[2017-06-10] MEDS: Simvastatin 5 MG TAB PO SCH (20:21)
[2017-06-10] MEDS: Amlodipine 5 MG TAB PO SCH (20:22)
[2017-06-10] MEDS: Insulin Detemir 100 UNITS/ML 10 UNITS in Pre-Filled Syringe 1 EACH SC SCH (20:23)
[2017-06-10] MEDS: Aspirin 325 mg Enteric Coated Tablet PO SCH (20:23)
[2017-06-10] MEDS: Zolpidem Tartrate 5 MG TAB PO PRN (21:17)
[2017-06-11] MEDS: HYDROcodone/Acetaminophen 7.5/325 mg Tablet PO PRN ×3 (01:21→15:27)
[2017-06-11] MEDS: cefTRIAXone\\ROCEPHIN 2 GM in Sodium Chloride 0.9% 100 ML IVPB SCH (01:23)
[2017-06-11] MEDS: Azithromycin 500 MG in Sodium Chloride 0.9% 250 ML 250 ML IVPB SCH (03:05)
[2017-06-11] MEDS: Levothyroxine Sodium 75 MCG TAB PO SCH (07:00)
[2017-06-11 07:05] VITALS: BP 185/88; TEMP 97.5
[2017-06-11] MEDS ORDERED: Furosemide 20 MG TAB PO SCH (09:00)
[2017-06-11 09:07] LABS: #Lymphocytes 1.7 thou/uL (1.20-3.40); #Monocytes 0.9 thou/uL (0.11-0.59); #Neutrophils 8.5 thou/uL (1.40-6.50); %Basophils 0.2 % (0.0-1.0); %Eosinophils 0.4 % (0.0-10.0); %Lymphocytes 15.3 % (21.0-51.0); %Monocytes 8.3 % (0.0-10.0); White Blood Cell (WBC) Count 11.2 thou/uL (4.8-10.8)
[2017-06-11] MEDS: Losartan 25 MG TAB PO SCH (09:21)
[2017-06-11] MEDS: Pregabalin 75 MG CAP PO SCH (09:22)
[2017-06-11] MEDS: FLUoxetine HCl 20 MG CAP PO SCH (09:23)
[2017-06-11] MEDS: Furosemide 40 MG/4 ML VIAL SLOW IVP SCH (09:30)
--- NOTE | 2017-06-11 11:03 | PRG ---
DATE OF SERVICE: 06/11/2017 SUBJECTIVE: The patient is desiring to go home. He still has a slight cough. He is also still on 2 liters O2 nasal cannula. PHYSICAL EXAMINATION: VITAL SIGNS: Temperature 97.5, pulse 60, respirations 16, pulse ox 95 on 2 liters, and blood pressur e 185/88. HEART: Regular rate. LUNGS: With occasional rhonchi, no rales. ABDOMEN: Soft. EXTREMITIES: No edema. LABORATORY DATA: White count 11.2, H&H 11 and 37, and blood sugar 246, 115. ASSESSMENT: 1. Acute hypoxic respiratory failure, resolving. 2. Community-acquired pneumonia, improving. 3. Sepsis due to pneumonia present on admission. 4. Tobacco abuse. 5. Acute kidney injury. 6. Depression. 7. Mild to moderate chronic obstructive pulmonary disease. 8. Hypertension. 9. Hyperlipidemia. 10. Diabetes. 11. Coronary artery disease. 12. Hypothyroid. 13. Fracture, right wrist. PLAN: 1. I believe this turned to corner last night. He is feeling much better, desiring to go home. 2. Blood pressure this morning is back to baseline. We will monitor today, possible discharge this evening. If he goes home, he may need to be on oxygen. 3. Continue Zoloft. 4. Discharge soon.
--- NOTE | 2017-06-11 15:45 | PDOC.CTH ---
Cardiology Progress Note - Objective Vital Signs Temp Pulse Resp BP Pulse Ox 06/11/17 14:37 66 16 93 L 06/11/17 08:14 60 16 95 06/11/17 07:53 97.5 F L 67 17 89 L 06/11/17 07:05 97.5 F L 67 17 185/88 H 89 L Weight 164 lb 06/10/17 06/11/17 12 06:59 06:59 06:59 Output Total 500 700 Balance -500 -700 - Physical Examination General/Neuro: alert & oriented x3, NAD Neck: no JVD present Lungs: unlabored respirations Heart: RRR Abdomen: NT/ND Extremities: other: (no edema.) - Labs Result Diagrams: 06/11/17 08:45 06/10/17 04:01 Troponin/CKMB CK-MB (CK-2) 2.9 ng/mL (0-6.6) 06/06/17 09:17 Troponin I 0.119 ng/mL (< 0.028) H 06/06/17 09:17 - Assessment/Plan 1. Acute diastolic heart failure 2. Labile HTN 3. CAD, stable 4. Pneumonia 5. COPD 6. NSTEMI, demand ischemia PLAN: - CV stable. - Resume home regimen. - May d/c at any time from cardiac perspective.
--- NOTE | 2017-06-13 11:48 | DIS ---
DATE OF ADMISSION: 06/06/2017 DATE OF DISCHARGE: 06/11/2017 DISCHARGE DIAGNOSES: 1. Acute hypoxic respiratory failure. 2. Community-acquired pneumonia. 3. Sepsis. 4. Tobacco abuse. 5. Acute kidney injury. 6. Depression. 7. Mild to moderate chronic obstructive pulmonary disease. 8. Hypertension. 9. Hyperlipidemia. 10. Diabetes. 11. Coronary artery disease. 12. Hypothyroidism. 13. Right wrist fracture. DISCHARGE MEDICATIONS: Ambien 10 p.o. at bedtime p.r.n., Zoloft 50 q. day, Lyrica 150 p.o. b.i.d., m etformin 500 p.o. b.i.d., lovastatin 20 p.o. q. day, Losartan 50 p.o. q. day, levothyroxine 75 q. day , [place] 7.5/325 p.o. b.i.d. p.r.n., clonidine 0.1 p.o. b.i.d. p.r.n., aspirin 325 p.o. q. day and Nor vasc 5 p.o. at bedtime. BRIEF HISTORY: This is a 77-year-old white male with a history of as above who recently restarted sm oking; was admitted for pneumonia/shortness of breath. Patient was doing well approximately one week prior, he sustained a fall. At that time, he was discovered to have a right wrist fracture and was seen by Dr. Camejo and was placed in a splint. He recently restarted tobacco. Lately, he has been somewhat depressed, especially after the anniversary of the of his . Over the past several days, he has had increasing cough, congestion, shortness of breath. He was taken to the emergency r oom and he was diagnosed with bilateral pneumonia. Dr. Benitez was consulted. The patient was started on steroids, IV antibiotics, and breathing treatm ents. Dr. Neal was also consulted. The patient's blood pressure initially was very low; however, after rehydration, his blood pressure became very high. He was diuresed also for several days. Nayelikranthi stanley, his respiratory distress improved dramatically and now he is ready for discharge. He will follo w up in the office. He will follow up with Dr. Benitez and Dr. Neal. His blood pressure has been in relative control.
--- NOTE | 2017-07-01 14:36 | EKG ---
Test Reason : SHORT OF BREATH Blood Pressure : / mmHG Vent. Rate : 090 BPM Atrial Rate : 090 BPM P-R Int : 164 ms QRS Dur : 098 ms QT Int : 348 ms P-R-T Axes : 059 -10 037 degrees QTc Int : 425 ms Normal sinus rhythm Incomplete right bundle branch block T wave abnormality, consider anterior ischemia Abnormal ECG Confirmed by SANDI KEARNEY ([id number]), sports editor ARIANA REYES ([id number]) on 07/01/2017 2:36:12 PM Referred By: DR. KEARNEY Confirmed By:SANDI KEARNEY
== END 2017-06-11 19:43 | disposition home or self-care (01) | DRG 871 ==
LOC: SCSER 08:50 → IMCU/EMU 10:09 → ONC 06-08 15:34
PROVIDERS: ADMIT Family Medicine; ATTEND Family Medicine
DX: A41.9 Sepsis, unspecified organism (principal); J18.9 Pneumonia, unspecified organism; J96.01 Acute respiratory failure with hypoxia; I21.A1 Myocardial infarction type 2; I50.31 Acute diastolic (congestive) heart failure; N17.9 Acute kidney failure, unspecified; E11.42 Type 2 diabetes mellitus with diabetic polyneuropathy; I11.0 Hypertensive heart disease with heart failure; J44.0 Chronic obstructive pulmonary disease with (acute) lower respiratory infection; J44.1 Chronic obstructive pulmonary disease with (acute) exacerbation; R65.20 Severe sepsis without septic shock; E78.5 Hyperlipidemia, unspecified; F17.210 Nicotine dependence, cigarettes, uncomplicated; Z66 Do not resuscitate; Z86.73 Personal history of transient ischemic attack (TIA), and cerebral infarction without residual deficits; I25.10 Atherosclerotic heart disease of native coronary artery without angina pectoris; E03.9 Hypothyroidism, unspecified; Z90.49 Acquired absence of other specified parts of digestive tract; Z95.1 Presence of aortocoronary bypass graft; Z79.84 Long term (current) use of oral hypoglycemic drugs; Z79.82 Long term (current) use of aspirin; F41.9 Anxiety disorder, unspecified; F32.9 Major depressive disorder, single episode, unspecified; B97.89 Other viral agents as the cause of diseases classified elsewhere; S52.501D Unspecified fracture of the lower end of right radius, subsequent encounter for closed fracture with routine healing; Z91.81 History of falling; G89.4 Chronic pain syndrome; Z93.2 Ileostomy status; I25.2 Old myocardial infarction
CPT/HCPCS: 36415; 36416; 71010; 80048; 80053; 81003; 81015; 82553; 83605; 83690; 83735; 83880; 84484; 85025; 87040; 87149; 87633; 93005; 94640; 96360; 96361; 96365; A4216; G8978-GP-CJ; G8979-GP-CH; J0360; J0456; J0696; J1815; J1940; J1956; J2405; J3475; J7050; J7506; J7620

== ENCOUNTER 2017-08-12 09:25 | Outpatient (CLI) | payer MEDICARE ==
--- NOTE | 2017-08-12 10:47 | RAD ---
TWO VIEW CHEST SERIES: COMPARISON: 06/06/17. INDICATION: Dyspnea. FINDINGS: Lungs are hyperinflated with interstitial prominence bilaterally. There is mild prominence of the ca rdiac silhouette without evidence of prior sternotomy. No significant vascular congestion. IMPRESSION: 1. Evidence of chronic obstructive pulmonary disease. 2. There has been interval improvement of prior bilateral pulmonary parenchymal opacities indicating interval clearing of pneumonia. POS: H
== END 2017-08-12 09:26 | disposition home or self-care (01) ==
LOC: RAD 09:25
PROVIDERS: ATTEND Internal Medicine
DX: R06.00 Dyspnea, unspecified (principal); J44.9 Chronic obstructive pulmonary disease, unspecified; R91.8 Other nonspecific abnormal finding of lung field
CPT/HCPCS: 71046

== ENCOUNTER 2017-09-15 22:37 | Observation (INO) | payer MEDICARE ==
[2017-09-15] MEDS ORDERED: Naloxone HCl 0.4 mg/ml Vial ONE (22:59)
[2017-09-15 23:21] LABS: #Basophils 0.1 thou/uL (0.0-0.2); #Eosinphils 0.3 thou/uL (0.0-0.7); #Lymphocytes 1.6 thou/uL (1.20-3.40); #Monocytes 0.9 thou/uL (0.11-0.59); #Neutrophils 5.9 thou/uL (1.40-6.50); %Basophils 1.1 % (0.0-1.0); %Eosinophils 2.9 % (0.0-10.0); %Lymphocytes 18.2 % (21.0-51.0); %Monocytes 9.9 % (0.0-10.0); %Neutrophils 67.9 % (42.0-75.0); Hemoglobin 11.5 g/dL (14.0-18.0); Mean Corpuscular HGB CONC 31.2 g/dL (32.0-36.0); Platelet Count 147 thou/uL (130-400); Red Blood Cell (RBC) Count 3.97 mill/uL (4.70-6.10); White Blood Cell (WBC) Count 8.6 thou/uL (4.8-10.8)
[2017-09-15 23:33] LABS: ALT (SGPT) 9 U/L (8-55); AST (SGOT) 20 U/L (5-34); Alkaline Phosphatase 48 U/L (40-150); Anion Gap 14 mmol/L (10-20); BUN (Urea Nitrogen) 18 mg/dL (8.4-25.7); Bilirubin, Total 0.2 mg/dL (0.2-1.2); Calc. Creatinine Clearance 0 mL/min (70-130); Calcium 8.6 mg/dL (7.8-10.44); Carbon Dioxide 23 mmol/L (23-31); Chloride 103 mmol/L (98-107); Estimated GFR-MDRD 44; Globulin 2.9 g/dL (2.4-3.5); Glucose 92 mg/dL (83-110); Potassium 5.1 mmol/L (3.5-5.1); Protein, Total 6.9 g/dL (5.8-8.1); Sodium 135 mmol/L (136-145)
[2017-09-15 23:37] LABS: CKMB 5.3 ng/mL (0-6.6); Troponin I Less than 0.010 ng/mL (< 0.028)
[2017-09-16] MEDS ORDERED: Acetaminophen 500 MG TAB ONE (00:06)
[2017-09-16 00:26] LABS: Acetaminophen Less than 6.0 mcg/mL (10.0-30.0); Alcohol Less than 10 mg/dL (Less than 10); Salicylate Less than 8.0 mg/dL (15.0-30.0)
[2017-09-16 00:35] LABS: Bilirubin Negative (Negative); Blood, Urine Negative (Negative); Clarity Slightly Cloudy (Clear); Glucose, Urine (Dipstick) Negative (Negative); Leukocyte Negative (Negative); Nitrite Negative (Negative); Protein, Urine (Dipstick) Negative (Neg-Trace); Specific Gravity, Urine 1.015 (1.005-1.030); Urobilinogen 0.2 mg/dL (0.2-1.0); pH, Urine 5.5 (5.0-9.0)
[2017-09-16] MEDS ORDERED: cefTRIAXone\\ROCEPHIN 2 GM VIAL ONE (00:38)
[2017-09-16] MEDS ORDERED: Sodium Chloride 0.9% 100 ML ONE (00:39)
[2017-09-16 00:43] LABS: Cocaine Metabolite Screen Not Detected (NotDetected); Methadone Detected (NotDetected); Methamphetamine Not Detected (NotDetected); Opiate Screen Detected (NotDetected); Phencyclidine (PCP) Not Detected (NotDetected); THC/Cannabinoid Screen Not Detected (NotDetected)
[2017-09-16 00:44] LABS: Amphetamine Not Detected (NotDetected); Barbiturates Screen Not Detected (NotDetected); Benzodiazepine Screen Not Detected (NotDetected); Medtox Control Line Valid? VALID (VALID); Oxycodone Screen Not Detected (NotDetected); Tricyclic Screen Not Detected (NotDetected)
[2017-09-16] MEDS ORDERED: Acetaminophen 325 MG TAB PO PRN ×2 (02:08→16:28)
[2017-09-16] MEDS ORDERED: Ondansetron ODT 4 MG TAB SL PRN (02:08)
[2017-09-16] MEDS ORDERED: Ondansetron PF 4 MG/2 ML Vial IVP PRN (02:08)
[2017-09-16] MEDS ORDERED: Dextrose 5 % And 0.9 % NaCl 1,000 ML IV SCH (02:30)
[2017-09-16] MEDS ORDERED: Azithromycin 500 MG in Sodium Chloride 0.9% 250 ML 250 ML IVPB SCH (03:00)
[2017-09-16 03:45] VITALS: BMI 21.9
--- NOTE | 2017-09-16 07:53 | RAD ---
AP VIEW SUN: Date: 09/16/17 HISTORY: 77-year-old with history of COPD, altered mental status, and chest pain. FINDINGS: Comparison made to previous exam from 06/06/17. AP view of chest demonstrates sternotomy wires seen. EKG leads seen over the chest. Mild pulmonary va scular congestion is seen. No definite evidence of acute intrathoracic abnormality is seen. IMPRESSION: Cardiomegaly and pulmonary vascular congestion. Otherwise unremarkable AP view of chest. POS: H
[2017-09-16] MEDS ORDERED: Amlodipine 5 MG TAB PO PRN (08:22)
[2017-09-16] MEDS ORDERED: cefTRIAXone\\ROCEPHIN 1 GM in Sodium Chloride 0.9% 100 ML IVPB SCH (08:30)
[2017-09-16] MEDS: Pregabalin 75 MG CAP PO SCH ×2 (10:10→20:21)
[2017-09-16] MEDS: Losartan 25 MG TAB PO SCH (10:11)
--- NOTE | 2017-09-16 10:23 | RAD ---
PORTABLE CHEST: Date: 09/16/17 COMPARISON: 09/16/17. HISTORY: Respiratory distress. FINDINGS: Heart size appears borderline to slightly enlarged considering portable technique with postop sternot denis changes. Interstitial lung changes in the right mid lung field and left mid and lower lung rodríguez appear fairly similar to the previous exam given differences in technique. Changes are felt largely to be on the basis of chronic change. Changes are more accentuated in the 08/12/17 study, but the corine m is also of less optimal inspiration. IMPRESSION: Borderline heart size with interstitial lung change, probably largely chronic in nature. POS: [facility]
--- NOTE | 2017-09-16 11:29 | HP ---
HISTORY OF PRESENT ILLNESS: This is a 77-year-old white male with a history of chronic back pain. Willy mccartney also has a history of hypertension, hyperlipidemia, and diabetes, relatively controlled. He has be en on long-term [place] 7.5/325 b.i.d. for many, many years. He was previously on methadone years ago. He would see Dr. Mac on Tuesday, 2 days prior for pain control. He states that the [place] is no longer controlling his pain. I have limited his [place] in the office. He went to see Dr. Mac and saw him on Tuesday and had a followup appointment on in which he was started on methadone. He was given 30 mg. Throughout the day, he became very sedate, lethargic, and confused. He is fol lowed by his granddaughter. He began having some increasing cough and congestion and respiratory dif ficulty and was brought to the emergency room. He was known to be hypoxic as well as confused. This morning, he is doing much better. He is more awake and alert. He plans to continue to follow Dr. Javad juarez. He wants to be back on methadone for his pain control. He is also on Lyrica 150 b.i.d. The p atient upon discharge will plan to see Dr. Mac in followup. In the meantime, he has had a marked c ough and congestion. Chest x-ray that was a portable in the ER which was unremarkable. PAST MEDICAL HISTORY: 1. Do not resuscitate. 2. Hyperlipidemia. 3. Hypertension. 4. Diabetes. 5. Chronic back and neck pain. 6. 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 7. History of transient ischemic attack. 8. Coronary artery disease. 9. Hypothyroid. PAST SURGICAL HISTORY: Include back surgery x3, followed by Dr. Abreu. Status post colectomy, hi story of cardiac catheterization, 3-vessel disease followed by Dr. Neal. Status post coronary bypa ss grafting x4 by Dr. Cameron. Right renal artery stent placed by Dr. Lares in 03/2016. FAMILY HISTORY: Father was 79, . Mother at 67. Multiple family members with diabe tan. SOCIAL HISTORY: He is a smoker. 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 He then retired from [employer]. He is . His was previously a pediatric nurse at [employer] for ma ny years. She in 01/2016. He presently lives alone. He has 1 son and 1 daughter, Yumi Burgos. MEDICATIONS: Aspirin 325 mg daily, Prozac 20 mg daily, levothyroxine 75 mg daily, Bystolic 10 mg harshil ly, lovastatin 20 mg daily, Lyrica 150 b.i.d., metformin 1000 b.i.d., [place] 7.5/325 b.i.d., Ambien 10 at bedtime, albuterol p.r.n., amlodipine 5 daily. REVIEW OF SYSTEMS: As above. ALLERGIES: None. PHYSICAL EXAMINATION: VITAL SIGNS: Temperature 98.4, pulse 65, respirations 12, pulse ox 90%-95% on 2 liters O2, although this morning he is not wearing it. GENERAL: No acute distress at this time. Prominent cough present. HEENT: Clear. HEART: Regular rate and rhythm. LUNGS: With bilateral rhonchi, previously worse on the left. ABDOMEN: Soft. EXTREMITIES: No edema. LABORATORY: White count 8.6, H&H 12 and 36. Sodium 135, potassium 5.1, creatinine 1.53, BUN 18, blo od sugar 110. Troponin I less than 0.010. Urine negative. ASSESSMENT: 1. Hypoxia/acute respiratory distress. 2. Aspiration pneumonia. 3. Chronic neck and low back pain. 4. Diabetes. 5. Hypertension. 6. Hyperlipidemia. 7. Hypothyroid. 8. 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 PLAN: 1. IV hydration. 2. Rocephin and Zithromax daily. 3. Albuterol q.6. 4. Monitor pain. Hold [place] for now. 5. The patient plans to follow up with Dr. Mac for pain management next week. 6. Hopefully, we can discharge patient in the a.m.
[2017-09-16] MEDS: Albuterol Sulfate 2.5 mg/3 ml Neb NEB SCH ×2 (14:05→19:25)
[2017-09-16] MEDS: metFORMIN 500 MG TAB PO SCH (17:41)
--- NOTE | 2017-09-16 18:54 | CT ---
HEAD CT WITHOUT CONTRAST: 09/16/17 COMPARISON: 02/09/15 HISTORY: Altered mental status with lethargy. TECHNIQUE: Serial axial CT imaging at 5 mm intervals from vertex through skull base without contrast. FINDINGS: There is diffuse cerebral volume loss with associated prominence of the CSF containing spaces, stable . Stable lacunar infarction noted in right thalamus. No intracranial hemorrhage, midline shift, or ma ss effect. IMPRESSION: Stable head CT. No intracranial hemorrhage. POS: [facility]
[2017-09-16] MEDS: Piperacillin/Tazobactam 2.25 GM in Sodium Chloride 0.9% 100 ML IVPB SCH (20:20)
[2017-09-16] MEDS ORDERED: Simvastatin 5 MG TAB PO SCH (21:00)
[2017-09-16] MEDS ORDERED: Aspirin 325 mg Enteric Coated Tablet PO SCH (21:00)
[2017-09-16] MEDS: Zolpidem Tartrate 5 MG TAB PO SCH ×2 (21:38→23:08)
--- NOTE | 2017-09-16 23:21 | CON ---
DATE OF CONSULTATION: 09/16/2017 HISTORY OF PRESENT ILLNESS: Mr. Dieudonne Goss is a 77-year-old gentleman admitted with encephalopathy. History is such that he is in chronic pain for a period of time. His primary care physician referre d him to pain management services. Apparently, today is Tuesday and as of , he has received 2 doses of methadone 10 mg supervised medication. On Tuesday, he was very appropriate, became confused over the next 12-48 hours with associated feve r, chills and sweats. He does have a cough, bringing up yellow sputum. Since admission, he was give n apparently some Narcan to which he apparently woke up somewhat. The patient has longstanding histo ry of tobacco abuse and COPD, though he has had no recent exacerbations to speak of. He has a chroni c pain from chronic back pain and multiple issues. PAST MEDICAL HISTORY: Extensively outlined. Pertinent for diabetes, COPD, hyperlipidemia, chronic p ain, hypertension, TIA, diabetic neuropathy. PAST SURGICAL HISTORY: Previous ileostomy, previous trach, previous bypass, previous colectomy, florian l stent. No alcohol or tobacco ongoing. MEDICATIONS: List of medicines from home includes Lyrica 150, lovastatin 20, amlodipine 5, Ecotrin, Cozaar 25, Synthroid 75, Zolpidem 10, Zoloft 50, metformin 500, Catapres 0.1. ALLERGIES: Apparently METHYLPREDNISONE. REVIEW OF SYSTEMS: Otherwise, 10-point negative. SOCIAL/FAMILY HISTORY: Unremarkable. Please note, I reviewed all his medical records, old, personally I reviewed all his x-rays. PHYSICAL EXAMINATION: VITAL SIGNS: On admission, his temperature is 99, his pulse is 80, blood pressure 130/80, respiratio ns 18. GENERAL: He is awake, alert, responsive, appears to be appropriate and does not appear to be confuse d. CHEST: Reveals minimal wheezing. CARDIAC: Normal S1, S2. No gallops. ABDOMEN: Soft, no masses. IMPRESSION: 1. Encephalopathy, rule out sepsis. 2. Chronic pain, recently started methadone. I doubt 2 doses of methadone would have caused this en cephalopathy since he is taking methadone in the past, much larger doses. 3. Previous endoscopy. 4. Colostomy. 5. Azotemia. 6. Diabetes. 7. Ongoing tobacco abuse. PLAN: I have added Levaquin to his present antibiotic coverage, which includes Rocephin a gram a day , nebulizer treatments and supportive care. I will follow. This is a consultation note, 70 minutes of which 50% of time was spent on direct patient care
[2017-09-17] MEDS: Albuterol Sulfate 2.5 mg/3 ml Neb NEB SCH ×2 (00:44→10:29)
[2017-09-17] MEDS ORDERED: cefTRIAXone\\ROCEPHIN 1 GM, Syringe 0.4 ML in Sterile Water 9.6 ML SLOW IVP SCH (01:00)
[2017-09-17 04:58] LABS: #Lymphocytes 0.4 thou/uL (1.20-3.40); #Monocytes 0.2 thou/uL (0.11-0.59); #Neutrophils 4.6 thou/uL (1.40-6.50); %Basophils 0.1 % (0.0-1.0); %Eosinophils 0.1 % (0.0-10.0); %Lymphocytes 8.1 % (21.0-51.0); %Monocytes 3.1 % (0.0-10.0); %Neutrophils 88.7 % (42.0-75.0); Hemoglobin 11.4 g/dL (14.0-18.0); Mean Corpuscular HGB CONC 30.8 g/dL (32.0-36.0); Mean Corpuscular Volume 97.5 fl (80.0-94.0); Mean Platelet Volume 7.8 fL (7.4-10.4); Platelet Count 150 thou/uL (130-400); RBC Distribution Width 12.8 % (11.5-14.5); White Blood Cell (WBC) Count 5.2 thou/uL (4.8-10.8)
[2017-09-17 05:17] LABS: Anion Gap 12 mmol/L (10-20); BUN (Urea Nitrogen) 14 mg/dL (8.4-25.7); Calc. Creatinine Clearance 0 mL/min (70-130); Calcium 8.7 mg/dL (7.8-10.44); Carbon Dioxide 23 mmol/L (23-31); Chloride 104 mmol/L (98-107); Estimated GFR-MDRD 60; Glucose 214 mg/dL (83-110); Potassium 4.5 mmol/L (3.5-5.1); Sodium 134 mmol/L (136-145)
[2017-09-17] MEDS: Piperacillin/Tazobactam 2.25 GM in Sodium Chloride 0.9% 100 ML IVPB SCH (05:24)
[2017-09-17] MEDS ORDERED: Levothyroxine Sodium 75 MCG TAB PO SCH (06:00)
[2017-09-17 08:17] VITALS: TEMP 98.2
[2017-09-17 08:18] VITALS: BP 174/92
[2017-09-17] MEDS: Losartan 25 MG TAB PO SCH (08:49)
[2017-09-17] MEDS: Pregabalin 75 MG CAP PO SCH (08:49)
[2017-09-17] MEDS: metFORMIN 500 MG TAB PO SCH (08:49)
--- NOTE | 2017-09-17 12:58 | PRG ---
DATE OF SERVICE: 09/17/2017 SUBJECTIVE: This morning, he is awake, alert and responsive. He is better. OBJECTIVE: VITAL SIGNS: His sats are 98%, temperature 98 and blood pressure 174/92. CHEST: Decreased breath sounds. No wheezing. CARDIAC: Normal S1 and S2. ABDOMEN: Soft. No masses. LABORATORY DATA: White blood cell count 5000, hemoglobin and hematocrit 11 and 37, platelet count 15 0. Electrolytes are normal. All cultures are negative. IMPRESSION: Chronic obstructive pulmonary disease exacerbation, bronchitis, encephalopathy and chron ic pain. PLAN: He was discharged home by his primary care physician. It is unknown what antibiotics he was d ischarged home on, but I would suggest antibiotics, nebulizer treatments, etc. Follow up with the primary care physician.
--- NOTE | 2017-09-17 13:50 | DIS ---
DATE OF ADMISSION: 09/16/2017 DATE OF DISCHARGE: 09/17/2017 ADMISSION DIAGNOSES: 1. Mental status change, confusion. 2. Possible aspiration pneumonia. 3. Acute respiratory distress. DISCHARGE DIAGNOSES: 1. Mental status change - resolved 2. Possible aspiration pneumonia - stable 3. Acute respiratory distress - resolved OTHER DIAGNOSES: Diabetes, chronic neck and low back pain, hypertension, hyperlipidemia, hypothyroidism, status post colectomy and ileostomy in place. CONSULTATION: Dr. León for Pulmonary. PROCEDURES: IV antibiotics, nebulizer treatments, IV steroids. HOSPITAL COURSE: This is a 77-year-old gentleman, a patient of Dr. Hector Landaverde. He was in his usual state of health until he was started on methadone therapy for chronic pain. He became more sedated, lethargic and confused following his treatment. He was brought to the emergency department and found to be hypoxic and confused. By the next morning, he has improved and feeling back at his baseline. He was monitored overnight, seen by Dr. León who felt like he needed to rule out sepsis syndrome. His blood cultures returned as negative with no growth. His symptoms totally resolved with removing the pain medicines and decreasing his medications and he was stable for discharge at this time. DISCHARGE PHYSICAL EXAMINATION: VITAL SIGNS: Temperature 98.2, pulse of 72, respirations 18, blood pressure 174 /92, and pulse oximetry is 95% on room air. GENERAL: He is awake and alert, in no acute distress. Speech is clear. NECK: Supple. HEENT: Mucosa is moist. HEART: Regular rate and rhythm. LUNGS: Clear bilaterally with occasional rhonchi which clear with coughing. No wheezing, good aeration. ABDOMEN: Soft. Colostomy bag with formed stool. No diarrhea. EXTREMITIES: No edema. LABORATORY DATA AND IMAGING DATA: White blood cell count 5,200, hemoglobin and hematocrit 11.4 and 37, platelets 150. Sodium 134, potassium 4.5, chloride 104 , CO2 of 23, BUN and creatinine 14 and 1.17, serum glucose of 214, calcium of 8.7. Urinalysis was negative. Tox screen was positive for opiates, positive for methadone. Chest x-ray from yesterday revealed borderline heart size is interstitial, chronic lung changes, but no acute findings. DISCHARGE MEDICATIONS: Include Tylenol p.r.n., Ventolin nebs p.r.n., DuoNebs q.4 p.r.n., amlodipine 5 mg daily, aspirin 325 daily, Levaquin 500 mg daily for 7 more days, Synthroid 75 mcg daily, Cozaar 25 mg daily, metformin 500 mg b.i.d. , Lyrica 150 mg b.i.d., Zoloft 50 mg daily, Zocor 10 mg daily. He is to try to discontinue the Ambien due to sedation. FOLLOWUP INSTRUCTIONS: Patient to follow up with Dr. Landaverde in 1 week and call if symptoms worsen. He is to follow up with pain management with more cautious approach to his analgesia. [facility]
--- NOTE | 2017-10-09 01:16 | EKG ---
Test Reason : Blood Pressure : / mmHG Vent. Rate : 068 BPM Atrial Rate : 068 BPM P-R Int : 188 ms QRS Dur : 096 ms QT Int : 384 ms P-R-T Axes : 050 -22 048 degrees QTc Int : 408 ms Normal sinus rhythm Incomplete right bundle branch block Nonspecific T wave abnormality IN aVL Borderline ECG Confirmed by DAWNA DUDLEY, TALON ([id number]), newspaper editor managing ARIANA REYES ([id number]) on 10/09/2017 1:15:55 AM Referred By: Confirmed By:TALON TONEY MD
== END 2017-09-17 10:55 | disposition home or self-care (01) ==
LOC: SCSER 22:37 → 2NO 09-16 00:03
PROVIDERS: ADMIT Family Medicine; ATTEND Family Medicine
DX: R41.82 Altered mental status, unspecified (principal); R06.03 Acute respiratory distress; I10 Essential (primary) hypertension; M54.5 Low back pain; M54.2 Cervicalgia; G89.29 Other chronic pain; E78.5 Hyperlipidemia, unspecified; E03.9 Hypothyroidism, unspecified; I25.10 Atherosclerotic heart disease of native coronary artery without angina pectoris; F17.200 Nicotine dependence, unspecified, uncomplicated; R09.02 Hypoxemia; E11.40 Type 2 diabetes mellitus with diabetic neuropathy, unspecified; J44.9 Chronic obstructive pulmonary disease, unspecified; R79.89 Other specified abnormal findings of blood chemistry; Z66 Do not resuscitate; Z79.82 Long term (current) use of aspirin; Z79.891 Long term (current) use of opiate analgesic; Z79.899 Other long term (current) drug therapy; Z88.8 Allergy status to other drugs, medicaments and biological substances; Z93.2 Ileostomy status; Z95.1 Presence of aortocoronary bypass graft; Z90.49 Acquired absence of other specified parts of digestive tract; Z98.890 Other specified postprocedural states; Z86.73 Personal history of transient ischemic attack (TIA), and cerebral infarction without residual deficits
CPT/HCPCS: 36415; 36416; 70450; 71045; 80048; 80053; 80306; 80307; 81003; 82553; 83605; 84484; 85025; 87040; 87086; 93005; 94640; A4216; J0456; J0696; J1956; J2310; J2543; J2920; J7050; J7611; J7620

== ENCOUNTER 2017-09-18 10:07 | Inpatient (IN) | payer MEDICARE ==
[2017-09-18 10:42] LABS: #Eosinphils 0.1 thou/uL (0.0-0.7); #Monocytes 0.8 thou/uL (0.11-0.59); #Neutrophils 9.4 thou/uL (1.40-6.50); %Basophils 0.2 % (0.0-1.0); %Eosinophils 0.5 % (0.0-10.0); %Monocytes 7.4 % (0.0-10.0); Hemoglobin 12.7 g/dL (14.0-18.0); Mean Corpuscular HGB CONC 32.5 g/dL (32.0-36.0); Mean Corpuscular Hemoglobin 30.7 pg (27.0-31.0); Mean Corpuscular Volume 94.7 fl (80.0-94.0); Mean Platelet Volume 7.7 fL (7.4-10.4); Platelet Count 162 thou/uL (130-400); RBC Distribution Width 12.9 % (11.5-14.5); Red Blood Cell (RBC) Count 4.14 mill/uL (4.70-6.10); White Blood Cell (WBC) Count 11.4 thou/uL (4.8-10.8)
[2017-09-18] MEDS ORDERED: Acetaminophen 500 MG TAB ONE (10:49)
[2017-09-18 11:07] LABS: ALT (SGPT) 8 U/L (8-55); AST (SGOT) 21 U/L (5-34); Albumin 3.7 g/dL (3.4-4.8); Alkaline Phosphatase 49 U/L (40-150); Anion Gap 15 mmol/L (10-20); BUN (Urea Nitrogen) 19 mg/dL (8.4-25.7); Bilirubin, Total 0.4 mg/dL (0.2-1.2); Calc. Creatinine Clearance 0 mL/min (70-130); Calcium 8.9 mg/dL (7.8-10.44); Carbon Dioxide 21 mmol/L (23-31); Chloride 102 mmol/L (98-107); Estimated GFR-MDRD 57; Globulin 2.9 g/dL (2.4-3.5); Glucose 107 mg/dL (83-110); Potassium 4.2 mmol/L (3.5-5.1); Protein, Total 6.6 g/dL (5.8-8.1); Sodium 134 mmol/L (136-145)
[2017-09-18] MEDS ORDERED: Piperacillin/Tazobactam 4.5 GM in Sodium Chloride 0.9% 100 ML IVPB ONE (11:45)
[2017-09-18 13:20] LABS: Troponin I 0.039 ng/mL (< 0.028)
--- NOTE | 2017-09-18 13:48 | RAD ---
UPRIGHT PORTABLE CHEST 1 VIEW: HISTORY: A 7-year-old male with a history of fever, cough, and low O2 sats. COMPARISON: 09/16/17. FINDINGS: There is much worsening of bilateral interstitial and alveolar parenchymal changes throughout right a nd left lungs, including the perihilar regions and lower lobes showing marked worsening from a 8 study, evidence for extensive bilateral pneumonia. IMPRESSION: Development of extensive bilateral interstitial and alveolar opacities, evidence for extensive bilate ral pneumonia developing or significantly worsening from 09/16/17. POS: [facility]
[2017-09-18 13:53] LABS: Bilirubin Negative (Negative); Blood, Urine Negative (Negative); Clarity CLEAR (Clear); Glucose, Urine (Dipstick) Negative (Negative); Leukocyte Negative (Negative); Nitrite Negative (Negative); Protein, Urine (Dipstick) Trace mg/dL (Neg-Trace); Specific Gravity, Urine 1.014 (1.002-1.036); Urobilinogen 0.2 mg/dL (0.2-1.0); pH, Urine 5.5 (5.0-9.0)
[2017-09-18 14:22] LABS: Troponin I 0.053 ng/mL (< 0.028)
[2017-09-18 16:49] LABS: Troponin I 0.042 ng/mL (< 0.028)
--- NOTE | 2017-09-18 17:23 | CON ---
DATE OF CONSULTATION: 09/18/2017 HISTORY OF PRESENT ILLNESS: Mr. Dieudonne Goss is a 77-year-old gentleman who was just discharged yes terday, comes back with confusion, fever, hypoxemia, shortness of breath and yellow sputum. His x-ra y, which was read to be normal yesterday. Today, now shows extensive bilateral pulmonary infiltrates . According to his niece whom he stays, the patient was somewhat confused. He had sepsis syndrome yesterday. All cultures were not back. Please review his extensive consultation note from 24 hours ago, which is well outlined and extensive , but pertinent mainly for his diabetes, COPD, lipedema, chronic pain, hypertension and neuropathy. Multiple surgeries were extensively outlined. We spoke to him at length. He is not allergic to meth ylprednisolone. He was given steroids yesterday without any issues. PHYSICAL EXAMINATION: VITAL SIGNS: Presently, his sats are 95% on 4 liters, pulse 82, respiratory rate 18. CHEST: Extensive rhonchi and crackles. CARDIAC: Normal S1 and S2. No gallops. ABDOMEN: Soft. No masses. LABORATORY DATA: White count 11,000, H&H 12 and 37, platelet count 162. Electrolytes are normal. C reatinine 1.2. IMPRESSION: 1. Bilateral bronchopneumonia. 2. Chronic pain with renal failure. Multiple surgeries. PLAN: Restart broad-spectrum antibiotics. We will notify Dr. Benitez in the morning who has seen the patient in the past.
[2017-09-18] MEDS: Piperacillin/Tazobactam 3.375 GM in Sodium Chloride 0.9% 100 ML IVPB SCH (18:18)
[2017-09-18] MEDS ORDERED: Acetaminophen 325 MG TAB PO PRN (19:06)
[2017-09-18] MEDS ORDERED: cloNIDine 0.1 MG TAB PO PRN (19:06)
[2017-09-18] MEDS ORDERED: HYDROcodone/Acetaminophen 7.5/325 mg Tablet PO PRN ×2 (19:08→19:23)
[2017-09-18] MEDS ORDERED: HumaLOG 300 UNITS/3 ML VIAL SC PRN (19:11)
[2017-09-18] MEDS ORDERED: Dextrose 50% Abboject 50 ML SYRINGE IVP PRN (19:24)
[2017-09-18] MEDS ORDERED: Dextrose 5% in Water 1,000 ML IV PRN (19:24)
[2017-09-18] MEDS: Pregabalin 75 MG CAP PO SCH (19:57)
[2017-09-18] MEDS: Aspirin 325 mg Enteric Coated Tablet PO SCH (19:58)
[2017-09-18] MEDS: HYDROcodone/Acetaminophen 7.5/325 mg Tablet PO PRN (19:58)
[2017-09-18] MEDS: Pantoprazole 40 MG VIAL IVP SCH (19:59)
[2017-09-18] MEDS: Cefepime 1 GM, Admixture Fee 1 EACH in Sodium Chloride 0.9% 10 ML SLOW IVP SCH (20:00)
--- NOTE | 2017-09-18 20:20 | HP ---
DATE OF ADMISSION: 09/18/2017 PRIMARY CARE PHYSICIAN: Hector Landaverde M.D. CHIEF COMPLAINT: Cough, fever, shortness of breath, and confusion. HISTORY OF PRESENT ILLNESS: This is a 77-year-old male patient with multiple medical problems, who w as recently admitted on 09/16/2017 and discharge home on 09/17/2017 in good condition. He was admitt ed for a transient episode of respiratory distress and hypoxia and was thought to have aspiration pne umonia despite normal chest x-ray. He has also had recently started on methadone treatment for his p ain and he thought he was over sedated causing the aspiration. On the day of discharge yesterday, he was doing much better, not requiring oxygen. His chest x-ray was normal. Blood cultures were negat dean. He was discharged home on antibiotics due to the possible aspiration and he did take that last night. Last night, upon going to bed, he had difficulty sleeping at about 1:30 he developed cough, s hortness of breath and temperature up to 102, instead of calling for help he took an Ambien at that t lyndon and went to sleep. He said he slept until about 6:30 when he woke up feeling much worse with con fused and fevers up to 102. Oxygenation at home was less than 80. He was taken to the Emergency Dep artment at that time. Per the ER physician, he was found to have a pulse ox around 70%. He improved significantly with oxygen therapy, IV fluids and neb treatment. He typically does not have oxygen a t home. His chest x-ray in the ED now revealed bilateral infiltrates. His exam was much worse than yesterday upon discharge. He is now being admitted for again respiratory distress, hypoxemia, and bi lateral pneumonia. He was seen by Dr. León in the Emergency Department and started back on broad-spe ctrum antibiotics as well as IV steroids and oxygen therapy. He is now being admitted for further ev aluation and treatment of his frequent episodes of rapid onset respiratory distress and infections. Of note, he had a similar admission in 06/2017 when he was admitted to the ICU for respiratory distre ss and bilateral pneumonia. He was treated for influenza for pneumonia and seen by Dr. Benitez at at time. He again recovered quickly and was discharged home in good condition following that episode . PAST MEDICAL HISTORY: Chronic obstructive pulmonary disease with over a 40-year pack smoking history ; type 2 diabetes; hyperlipidemia; chronic back pain; chronic neck pain; history of TIA; diabetic abdi ropathy; hypothyroidism; history of mesenteric ischemia, status post ileostomy with persistent colost denis; and coronary artery disease. PAST SURGICAL HISTORY: Includes back surgery x3 followed by Dr. Abreu with surgeries by Dr. Angie le in the past and chronic pain management, status post colectomy for mesenteric ischemia with resulti ng colostomy. History of cardiac catheterization with 3-vessel disease followed by Dr. Neal. He i s status post coronary bypass graft x4 vessels in 2013. History of renal stenosis, status post renal stent placement in [address] Lares. MEDICATIONS: Include Tylenol 650 q.6 hours p.r.n., albuterol nebs p.r.n., Xanax 0.25 mg q.6 hours p. r.n. anxiety, aspirin 325 mg daily, clonidine 0.1 mg daily p.r.n., hydrocodone 7.5 mg 1-2 b.i.d. p.r. n. severe pain, DuoNebs p.r.n., levothyroxine 75 mcg daily, losartan 25 mg daily, lovastatin 20 mg da angle, metformin 500 mg b.i.d., Lyrica 150 mg b.i.d., and sertraline 50 mg daily. ALLERGIES: None known. SOCIAL HISTORY: Over a 40-pack year smoking history. He quit years ago then restarted again in 2017 . He lives alone with family nearby. 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 FAMILY HISTORY: Father at 79. Mother at 67. Multiple family members with diabete s. No known heart disease. REVIEW OF SYSTEMS: As per the history of present illness with recent hospitalization, fevers and chi lls. HEENT: No headache, no visual or hearing changes. Cardiac: Denies chest pain. Positive shor tness of breath. No palpitations. Pulmonary: Positive cough, positive shortness of breath. He sta tan that he did have an episode of hemoptysis last night. Gastrointestinal: No nausea, vomiting, ab dominal pain, melena, or hematochezia. Genitourinary: No history of dysuria or hematuria. Neurolog ic: Positive weakness. No syncope. Musculoskeletal: Positive history of joint pains. PHYSICAL EXAMINATION: VITAL SIGNS: Temperature 98.3, pulse of 77, respirations 18, blood pressure 131/61, pulse ox is 100% on 4 liters. GENERAL: He is awake and alert. He does appear lethargic, but answers questions appropriately. HEENT: Mucosa is moist. NECK: Supple, no JVD, adenopathy or bruits. HEART: Regular rate and rhythm. LUNGS: With decreased breath sounds, scattered rhonchi throughout. Expiratory wheezes bilaterally. ABDOMEN: Flat, soft, nontender, nondistended. No hepatosplenomegaly. EXTREMITIES: No clubbing, cyanosis or edema. 2+ peripheral pulses bilaterally. LABORATORY AND DIAGNOSTIC DATA: White blood cell count 11,400, hemoglobin hematocrit 12.7 and 32.9, platelets of 162. Sodium 134, potassium 4.2, chloride 102, CO2 of 21, BUN and creatinine 19 and 1.23 with a GFR of 57. Serum glucose of 107. Lactic acid was 1.7. Calcium of 8.9. AST and ALT are nor mal. Troponins are 0.039, 0.053, and 0.042. Albumin of 3.7. Chest x-ray revealed development of ex tensive bilateral interstitial and alveolar opacities, evidence of extensive bilateral pneumonia deve loped since last chest x-ray on 09/16/2017. Blood cultures are pending from this admission, but from 09/15/2017 were negative for blood cultures and negative for urine cultures. ASSESSMENT AND PLAN: This is a 77-year-old gentleman with multiple medical problems now with readmis tristan for worsening bilateral pneumonia. He is now oxygen requiring where he did not need oxygen when he was discharged home yesterday, very possible that he did develop again aspiration pneumonia and p ossibly from oversedation last night after he took the Ambien, appreciate Dr. León's assistance. We will continue antibiotics broad-spectrum, as well as IV steroids, nebulizer treatments, and oxygen th erapy. 1. Coronary artery disease. We will continue medications including aspirin, checking echocardiogram . 2. Type 2 diabetes. We will continue metformin and insulin sliding scale. 3. Chronic pain. I will continue Lyrica and cautiously continue his hydrocodone. 4. Insomnia. We will discontinue the Ambien at night. He was notified of this that he might have d ifficulty sleeping, but we would rather him not aspirate at night due to the oversedation. 5. Gastrointestinal protection with IV Protonix. 6. Hypertension. We will continue his medications and monitor closely. 7. Possible aspiration. We will consult Speech for a swallow evaluation. 8. Code status: The patient desires a DNR status again.
[2017-09-18] MEDS ORDERED: Cefepime 1 GM in Sodium Chloride 0.9% 100 ML IVPB SCH (21:00)
[2017-09-19] MEDS: Piperacillin/Tazobactam 3.375 GM in Sodium Chloride 0.9% 100 ML IVPB SCH ×4 (00:25→17:50)
[2017-09-19] MEDS: Albuterol Sulfate 2.5 mg/3 ml Neb NEB SCH ×4 (01:14→18:12)
[2017-09-19 05:32] LABS: #Lymphocytes 0.3 thou/uL (1.20-3.40); #Monocytes 0.1 thou/uL (0.11-0.59); #Neutrophils 6.2 thou/uL (1.40-6.50); %Basophils 0.1 % (0.0-1.0); %Lymphocytes 4.3 % (21.0-51.0); %Monocytes 1.7 % (0.0-10.0); %Neutrophils 93.9 % (42.0-75.0); Hemoglobin 11.5 g/dL (14.0-18.0); Mean Corpuscular HGB CONC 32.4 g/dL (32.0-36.0); Mean Corpuscular Hemoglobin 30.6 pg (27.0-31.0); Mean Corpuscular Volume 94.3 fl (80.0-94.0); Mean Platelet Volume 7.7 fL (7.4-10.4); Platelet Count 156 thou/uL (130-400); RBC Distribution Width 12.7 % (11.5-14.5); Red Blood Cell (RBC) Count 3.76 mill/uL (4.70-6.10); White Blood Cell (WBC) Count 6.6 thou/uL (4.8-10.8)
[2017-09-19] MEDS: Levothyroxine Sodium 75 MCG TAB PO SCH (06:02)
[2017-09-19 06:06] LABS: ALT (SGPT) 8 U/L (8-55); AST (SGOT) 15 U/L (5-34); Albumin 3.3 g/dL (3.4-4.8); Alkaline Phosphatase 43 U/L (40-150); Anion Gap 13 mmol/L (10-20); BUN (Urea Nitrogen) 21 mg/dL (8.4-25.7); Bilirubin, Total 0.4 mg/dL (0.2-1.2); Calc. Creatinine Clearance 52 mL/min (70-130); Calcium 8.7 mg/dL (7.8-10.44); Carbon Dioxide 22 mmol/L (23-31); Chloride 106 mmol/L (98-107); Estimated GFR-MDRD 57; Globulin 2.8 g/dL (2.4-3.5); Glucose 198 mg/dL (83-110); Potassium 4.1 mmol/L (3.5-5.1); Protein, Total 6.1 g/dL (5.8-8.1); Sodium 137 mmol/L (136-145)
[2017-09-19] MEDS: Losartan 25 MG TAB PO SCH (08:59)
[2017-09-19] MEDS: Pregabalin 75 MG CAP PO SCH ×2 (08:59→20:52)
[2017-09-19] MEDS: metFORMIN 500 MG TAB PO SCH ×2 (09:00→17:50)
[2017-09-19] MEDS: Cefepime 1 GM, Admixture Fee 1 EACH in Sodium Chloride 0.9% 10 ML SLOW IVP SCH (09:02)
[2017-09-19] MEDS: Pantoprazole 40 MG VIAL IVP SCH ×2 (09:02→20:51)
[2017-09-19] MEDS: HumaLOG 300 UNITS/3 ML VIAL SC PRN ×3 (09:02→18:35)
[2017-09-19] MEDS: HYDROcodone/Acetaminophen 7.5/325 mg Tablet PO PRN ×2 (09:34→20:52)
--- NOTE | 2017-09-19 10:00 | PRG ---
DATE OF SERVICE: 09/19/2017 SERVICE: Pulmonary Medicine. INTERVAL HISTORY: The patient is doing really well from a respiratory standpoint. His breathing is much improved. He denies any chest pain, shortness of breath, nausea or vomiting. Otherwise, he is returning to his usual state of health. He is bringing up yellow sputum with a little bit of blood-t inged to it. PHYSICAL EXAMINATION: VITAL SIGNS: Afebrile, pulse 68, blood pressure 172/77, respirations 18, saturation 99% on 3 liters nasal cannula. GENERAL: The patient is awake and alert, in no apparent distress. LUNGS: Decent air entry. There is a prolonged expiratory phase, but he is moving pretty good air. There are rhonchi present and it change with cough. No crackles or wheezing appreciated. HEART: Normal rate, regular. ABDOMEN: Soft, nontender, and nondistended. Bowel sounds are positive. MUSCULOSKELETAL: No cyanosis or clubbing. No pitting in the bilateral lower extremities. NEUROLOGIC: Grossly nonfocal. LABORATORY DATA: WBC 6.6, hemoglobin 11.5 and dropping by 1 gram, platelets 156. Basic metabolic pr ofile and liver function studies are essentially unremarkable. Troponin is down trending to 0.042. Glucose 199 and roughly stable. Urinalysis is unremarkable. Blood cultures x2 are unremarkable. Re spiratory culture is unremarkable to date. C. diff antigen and toxin were sent off. IMAGING: Chest x-ray demonstrates findings consistent with noncardiogenic pulmonary edema. This wou ld be quite atypical for a heart type of process. ASSESSMENT: 1. Acute hypoxic respiratory failure. 2. Community-acquired pneumonia, recurrent. 3. Noncardiogenic pulmonary edema, possible. 4. Hemoptysis. PLAN: We will continue antibiotics, nebulized medications, and steroids. I will go ahead and send m orning serologies for ANCA and rheumatoid factor as well as an OXANA to help and prove that we are not dealing with an inflammatory process. Pulmonary or Critical Care will continue to follow while the p atient remains inhouse. Oxygen will be weaned as tolerated. We will get the patient into a chair, a nd had him work with physical therapy for the duration of his stay.
--- NOTE | 2017-09-19 10:13 | PRG ---
DATE OF SERVICE: 09/19/2017 SUBJECTIVE: The patient was readmitted for respiratory distress and hypoxia. He was placed on antib iotics and breathing treatments. He had marked rhonchi, some crackles upon admission. This morning, he is feeling much better. Sitting up on the side of the bed. He is in no respiratory distress. H e is awaiting a swallow test. OBJECTIVE: VITAL SIGNS: Temperature 98.0, pulse 60, respirations 12 on 3 liters O2, pulse ox 99%, blood pressur e 172/77. HEART: Regular rate and rhythm. LUNGS: Occasional rhonchi. Minimal rales. ABDOMEN: Soft. EXTREMITIES: No edema. IMAGING: Chest x-ray showed bilateral significant pneumonia. LABORATORY DATA: White count 6.6, H and H 11 and 35. Sodium 137, potassium 4.1, creatinine 1.23, BU N 21, blood sugar 198. ASSESSMENT: 1. Bilateral pneumonia. The patient markedly improved this morning. 2. Coronary artery disease. 3. Diabetes. 4. Chronic pain. 5. Hypertension. 6. DNR. PLAN: 1. The patient was discharged on Tuesday reluctantly. It was recommended that he stay. However, t he patient was insistent upon going home. Evidently took an Ambien, which may have caused an additio nal aspiration. At this time, I informed the patient that we need to keep him for at least another d ay or 2 to make sure his condition improves. 2. Swallow test this morning. 3. The patient does have chronic pain. We will have to monitor closely his pain medications. He st ill insists upon going to Dr. Rondon for pain control and methadone treatment.
[2017-09-19] MEDS: ALPRAZolam 0.25 MG TAB PO PRN ×2 (10:45→20:53)
[2017-09-19] MEDS: Lovastatin 20 MG TAB PO SCH (18:35)
[2017-09-19] MEDS: Aspirin 325 mg Enteric Coated Tablet PO SCH (20:53)
[2017-09-20] MEDS: Albuterol Sulfate 2.5 mg/3 ml Neb NEB SCH ×4 (00:44→18:41)
[2017-09-20] MEDS: Piperacillin/Tazobactam 3.375 GM in Sodium Chloride 0.9% 100 ML IVPB SCH ×3 (01:23→12:25)
[2017-09-20] MEDS: Levothyroxine Sodium 75 MCG TAB PO SCH (06:00)
--- NOTE | 2017-09-20 08:53 | PRG ---
DATE OF SERVICE: 09/20/2017 SUBJECTIVE: The patient is doing well this morning. No reported fever. Minimal cough and congestio n. He is still on 2 liters of O2. OBJECTIVE: VITAL SIGNS: Temperature 98.2, pulse 68, blood pressure 147/71, 185/77, respirations 14, pulse ox 95 . HEART: Regular rate and rhythm. LUNGS: Relatively clear. ABDOMEN: Soft. LABORATORY: Blood sugar 275, 194, 138. ASSESSMENT: 1. Acute hypoxic respiratory failure. 2. Community-acquired pneumonia. 3. Noncardiogenic pulmonary edema. 4. Coronary artery disease. 5. Diabetes. 6. Chronic pain. 7. Hypertension. 8. DNR. PLAN: 1. Continue antibiotics and steroids as well as neb treatments. The patient continues to improve. 2. Slowly wean O2. 3. Discharge soon. 4. I had a long discussion with patient about chronic pain. His intentions are to return to the [facility] on[facility] pain clinic for possibly at a lower dose of methadone. He is adamant about pursuing that route. If he follows up with me in the clinic I would be willing to up his [place] on a temporary basis. We will continue to follow.
[2017-09-20] MEDS: Pantoprazole 40 MG VIAL IVP SCH ×2 (08:54→20:44)
[2017-09-20] MEDS: Losartan 25 MG TAB PO SCH (08:54)
[2017-09-20] MEDS: metFORMIN 500 MG TAB PO SCH ×2 (08:54→17:32)
[2017-09-20] MEDS: Pregabalin 75 MG CAP PO SCH ×2 (08:56→20:44)
[2017-09-20] MEDS: ALPRAZolam 0.25 MG TAB PO PRN ×2 (09:06→20:45)
[2017-09-20] MEDS: HYDROcodone/Acetaminophen 7.5/325 mg Tablet PO PRN ×2 (09:06→20:45)
[2017-09-20] MEDS: HumaLOG 300 UNITS/3 ML VIAL SC PRN ×2 (12:28→17:33)
[2017-09-20 13:35] LABS: ANA Symphony (Qualitative) Negative (Negative); CCP IgG Antibody 0.8 EliAU/mL (<7 Negative); EliA RAS New Method **** NEW METHOD ****; Rheumatoid Factor IgA Antibody 3.4 IU/mL (<14 Negative); Rheumatoid Factor IgM Antibody Less than 0.5 IU/mL (<3.5 Negative)
--- NOTE | 2017-09-20 14:53 | PRG ---
DATE OF SERVICE: 09/20/2017 SERVICE: Pulmonary Medicine INTERVAL HISTORY: The patient is doing excellent from a respiratory standpoint. I tried weaning his oxygen, but he desaturated a little bit. That being said, he is much more comfortable today and fee ls like he is getting up a lot less sputum. He denies any current fevers, chills, nausea or vomiting . He had no overnight events. Overall, he is moving in the right direction wants to go home today o r tomorrow. I suggested that he needs to stay in house for another day. Either way, we have some ne w information that became available to us. Apparently, the patient was having some chronic pain issu es. He is supposed to be taking a dose of [place] twice daily. He was taking it 4 times daily because of a recent injury to his wrist. He ran out of his [place]. His physician did not deescalate his dos e, likely appropriate as the patient has a chronic history of opioid abuse and use. Either way, he w ent to a different pain doctor. He got put a very long-acting narcotic. After he took a second dose of that narcotic, he also took an Ambien to help him sleep. He then was very difficult to arouse fo r a protracted period of time. Apparently, there are similar circumstances that surrounded his previ ous pneumonia as well. PHYSICAL EXAMINATION: VITAL SIGNS: Afebrile currently with a T-max of 99.1. Pulse 75, blood pressure 126/61, respirations 18, saturation 94% on 2 liters nasal cannula. GENERAL: The patient is awake and alert. LUNGS: Minimal rhonchi are present now. They clear with cough. There is a slightly prolonged expir atory phase, but no wheezing or crackles are appreciated. HEART: Normal rate, regular. ABDOMEN: Soft, nontender, nondistended. Bowel sounds are positive. MUSCULOSKELETAL: No cyanosis or clubbing. No pitting in the bilateral lower extremities. NEUROLOGIC: Grossly nonfocal. LABORATORIES: OXANA, rheumatoid factor are unremarkable. ANCA studies are currently pending. C. diff antigen and toxin are unremarkable. Blood cultures x2 and respiratory culture remain negative to da zia. ASSESSMENT: 1. Acute hypoxic respiratory failure, once again, improving. 2. Community-acquired pneumonia, resolving. 3. Medication use/overuse, including anxiolytic and narcotics. 4. Major depressive disorder with acute depressive episode. DISCUSSION AND PLAN: I talked to the patient about choices moving forward. His expectation is that he is going to be completely pain free. I suggested that is a little bit unreasonable and that our g oal of treating his pain is not 0 pain, but to have pain that is a 1-2/10. That being said, it seems to me that the pain the patient is having the most difficult time with is more emotional ever since his a year and a half ago. He is medicating this with pain medication and sleep med ication. He is on Zoloft, but is not currently effective at his current dose. I gave him the option of transitioning home with hospice for perfect pain control with the expectatio n that will shorten his life versus decreasing his pain medications slowly then increasing it through time under the care of pain management doctor with the hopes of eventually transitioning off of narc otic medications altogether. He very quickly jumped towards hospice. He almost seems eager to pass away. I do believe that this could be a suicidal ideology. As such, I would recommend a very aggres sive management of his major depressive episode. I am going to put a consult in with [facility] to see whe ther or not inpatient or outpatient therapy would be more appropriate. Pulmonary Critical Care will continue to follow, but my suspicion is once he is off of oxygen, we can convert him over to an oral antibiotic and consider him for transition home. Pulmonary Critical Care will continue to follow brenden bertrand he remains in house for the time being.
[2017-09-20] MEDS: Lovastatin 20 MG TAB PO SCH (17:32)
[2017-09-20] MEDS: Aspirin 325 mg Enteric Coated Tablet PO SCH (20:45)
[2017-09-20] MEDS: Amoxicillin/Potassium Clav 875 MG TAB PO SCH (20:45)
[2017-09-21] MEDS: Albuterol Sulfate 2.5 mg/3 ml Neb NEB SCH ×4 (00:36→18:52)
[2017-09-21] MEDS: Levothyroxine Sodium 75 MCG TAB PO SCH (05:57)
[2017-09-21] MEDS ORDERED: Losartan 25 MG TAB PO SCH (07:41)
[2017-09-21] MEDS: metFORMIN 500 MG TAB PO SCH ×3 (07:43→17:50)
[2017-09-21] MEDS: HYDROcodone/Acetaminophen 7.5/325 mg Tablet PO PRN ×2 (08:07→20:12)
--- NOTE | 2017-09-21 08:40 | PRG ---
DATE OF SERVICE: 09/21/2017 SUBJECTIVE: The patient continues to slowly improve. His cough has become much more productive. He still requires O2 to maintain his O2 sats above 90%. OBJECTIVE: VITAL SIGNS: Temperature 96.6, pulse 78, respirations 16, pulse ox 98, O2 2 liters, blood pressure 1 66/81. HEART: Regular rate and rhythm. LUNGS: Have bilateral occasional rhonchi, but increased breath sounds. ABDOMEN: Soft and nontender. EXTREMITIES: No edema. LABORATORY DATA: Blood sugars 194, 236, 205. ASSESSMENT: 1. Acute hypoxic respiratory failure, improving. 2. Community-acquired pneumonia. 3. Noncardiogenic pulmonary edema. 4. Coronary artery disease. 5. Diabetes. 6. Chronic pain. 7. Hypertension. 8. DO NOT RESUSCITATE. PLAN: 1. Antibiotics and steroids changed to p.o. 2. Slowly wean O2. 3. Increase losartan to 50 every day. 4. We will increase Zoloft to 100 mg daily. I have had many long discussions with the patient. He is not suicidal. I do agree with an [facility] cons ult. The patient has been depressed since his . His depression did exacerbate follo wing his wrist injury, which increased his pain. Today, expressed to me that he has no interest in c ommitting suicide. I am well aware that Zoloft is having increased potential for suicide risk; how er, patient is adamant he is not acutely suicidal. We will continue to follow. Hopefully, he can be discharged tomorrow. We will continue to discuss chronic pain. I have had him on [place] b.i.d. for several years. However , I declined to increase this level following his wrist injury. I would plan to increase his [place] t o t.i.d. for 1-2 weeks only and then return to b.i.d. The patient is happy about this. I am not exc ited about him undergoing further methadone treatment. We will continue to monitor.
--- NOTE | 2017-09-21 09:28 | PRG ---
DATE OF SERVICE: 09/21/2017 SERVICE: Pulmonary Medicine. INTERVAL HISTORY: The patient is doing outstanding from a cardiovascular and respiratory standpoint. He is breathing comfortably. He is on one liter nasal cannula. Sats are 96%. As such, we will tr y to wean oxygen away. Otherwise, he is returning to his usual state of health and he has no specifi c complaints. He is upset that he has a sitter this point. He told me that he would never discuss s ome of his depression type symptoms if he knew he was going to be getting a sitter. PHYSICAL EXAMINATION: VITAL SIGNS: Afebrile, pulse 70, blood pressure 133/64, respirations 16, saturation 94% on room air. GENERAL: The patient is awake and alert, in no apparent distress. LUNGS: Excellent air entry. There is no prolonged expiratory phase or wheezing. Rhonchi have clear ed. HEART: Normal rate, regular. ABDOMEN: Soft, nontender, and nondistended. Bowel sounds are positive. MUSCULOSKELETAL: No cyanosis or clubbing. No pitting in the bilateral lower extremities. NEUROLOGIC: Grossly nonfocal. LABORATORY DATA: Blood sugars are ranging from 138-205. Urine is unremarkable. Serologies remain u nremarkable, but ANCA are still pending, which will be also unremarkable. C. diff antigen and toxin is negative. ASSESSMENT: 1. Acute hypoxic respiratory failure, resolved. 2. Community-acquired pneumonia, resolving. 3. Medications use/overuse, resulting in metabolic encephalopathy and inability to protect airway, r esolved. 4. Major depressive disorder with acute depressive episode. DISCUSSION AND PLAN: The patient is stable for transition out of the hospital at this point. [facility] i s going to evaluate him to determine whether or not inpatient or outpatient management is most approp riate for depressive symptoms. I agree that he is not acutely suicidal and does not intend to harm h imself, but that being said, he welcomes openly. If he remains in the hospital, I will continu e to follow, but again he is likely stable for discharge today if he is off oxygen.
[2017-09-21] MEDS: Pregabalin 75 MG CAP PO SCH ×2 (09:33→20:14)
[2017-09-21] MEDS: Losartan 25 MG TAB PO SCH (09:33)
[2017-09-21] MEDS: Amoxicillin/Potassium Clav 875 MG TAB PO SCH ×2 (09:33→20:13)
[2017-09-21] MEDS: Pantoprazole 40 MG VIAL IVP SCH ×2 (09:38→20:12)
[2017-09-21] MEDS: Lovastatin 20 MG TAB PO SCH (17:55)
[2017-09-21] MEDS: ALPRAZolam 0.25 MG TAB PO PRN (20:13)
[2017-09-21] MEDS: Aspirin 325 mg Enteric Coated Tablet PO SCH (20:13)
[2017-09-22] MEDS: Levothyroxine Sodium 75 MCG TAB PO SCH (05:10)
[2017-09-22 05:33] VITALS: BMI 23.4
[2017-09-22] MEDS: Albuterol Sulfate 2.5 mg/3 ml Neb NEB SCH ×2 (07:02)
[2017-09-22 07:45] VITALS: BP 170/68; TEMP 98.4
[2017-09-22] MEDS: metFORMIN 500 MG TAB PO SCH (07:46)
[2017-09-22] MEDS: HYDROcodone/Acetaminophen 7.5/325 mg Tablet PO PRN (09:05)
[2017-09-22] MEDS: Pregabalin 75 MG CAP PO SCH (09:07)
[2017-09-22] MEDS: Pantoprazole 40 MG VIAL IVP SCH (09:07)
[2017-09-22] MEDS: Amoxicillin/Potassium Clav 875 MG TAB PO SCH (09:10)
[2017-09-22] MEDS: Losartan 25 MG TAB PO SCH (09:10)
--- NOTE | 2017-09-22 10:50 | DIS ---
DATE OF ADMISSION: 09/18/2017 DATE OF DISCHARGE: 09/22/2017 DISCHARGE DIAGNOSES: 1. Acute hypoxic respiratory failure. 2. Community-acquired pneumonia. 3. Noncardiogenic pulmonary edema. 4. Coronary artery disease. 5. Diabetes. 6. Chronic pain. 7. Hypertension. 8. Chronic depression with acute exacerbation. 9. Grieving process. 10. [id number]. CONSULTANTS: Dr. Benitez, [facility]. DISCHARGE MEDICATIONS: Augmentin 875 p.o. b.i.d. #20, Ecotrin 325 mg daily, aspirin 325 mg daily, l evothyroxine 75 mg daily, losartan 50 mg daily, lovastatin 20 mg daily, metformin 1000 p.o. b.i.d., L yrica 150 p.o. b.i.d., and Zoloft 100 p.o. daily. BRIEF HISTORY: This is a 77-year-old white male with multiple medical issues. Recently hospitalized for aspiration pneumonia following the use of methadone. Patient had tried to enter a methadone muriel atment program for chronic pain. He presents again following taking of Ambien followed by shortness of breath, fever to 102 and marked cough. The family brought him to the hospital for reevaluation. He was noted to be confused. Oxygenation was low. Significant history is for the patient's pas sing away several years ago and he has not fully recovered from this. He grieving process has been e xtended. He also recently fell and injured his wrist and has not been able to control the pain. The patient normally takes [place] b.i.d. for pain and this has not been holding him. That is why he ente red in methadone program. HOSPITAL COURSE: The patient was admitted. He was given IV fluids as well as IV antibiotics. This was eventually weaned to p.o. Augmentin. He has done well. He no longer requires oxygen. He is wel l hydrated. His cough has become much more productive. He is ready for discharge. Dr. Benitez and myself has had several discussions regarding depression. [facility] was consulted and evaluated for possib le suicidality. Patient is adamant he is not interested in any homicidal or suicidal ideation. His main goal is to control pain. He is well aware that only a certain amount of pain medications can be prescribed. The present plan is that I will temporarily increase his [place] to t.i.d. for 2 weeks an d return to b.i.d. We will also consider the use of Xanax on a p.r.n. basis and increase the Zoloft to 100 mg daily. The patient is not interested in any outpatient psychiatric evaluation. He is fair ly content as long as his pain control. He takes care of multiple animals at home. He has a close [facility]. We will continue to follow closely on an outpatient basis.
[2017-09-26 13:14] LABS: ANCA Pattern <1:20 titer (Neg:<1:20); ANCA Total <1:20 titer (Neg:<1:20); Atypical pANCA <1:20 titer (Neg:<1:20); Myeloperoxidase AutoAbs <9.0 U/mL (0.0-9.0); Proteinase-3 AutoAbs Less than 3.5 U/mL (0.0-3.5)
== END 2017-09-22 10:46 | disposition home or self-care (01) | DRG 193 ==
LOC: ERS 10:07 → 2NO 13:41
PROVIDERS: ADMIT Family Medicine; ATTEND Family Medicine
DX: J18.9 Pneumonia, unspecified organism (principal); J96.01 Acute respiratory failure with hypoxia; G93.41 Metabolic encephalopathy; J81.1 Chronic pulmonary edema; R04.2 Hemoptysis; J44.0 Chronic obstructive pulmonary disease with (acute) lower respiratory infection; E11.42 Type 2 diabetes mellitus with diabetic polyneuropathy; I25.10 Atherosclerotic heart disease of native coronary artery without angina pectoris; F32.9 Major depressive disorder, single episode, unspecified; F43.20 Adjustment disorder, unspecified; Z66 Do not resuscitate; S69.90XA Unspecified injury of unspecified wrist, hand and finger(s), initial encounter; I10 Essential (primary) hypertension; E78.5 Hyperlipidemia, unspecified; T42.6X5A Adverse effect of other antiepileptic and sedative-hypnotic drugs, initial encounter; F17.210 Nicotine dependence, cigarettes, uncomplicated; Z93.2 Ileostomy status; Z79.891 Long term (current) use of opiate analgesic; Z86.73 Personal history of transient ischemic attack (TIA), and cerebral infarction without residual deficits; G89.29 Other chronic pain; E03.9 Hypothyroidism, unspecified; Z95.1 Presence of aortocoronary bypass graft; G47.00 Insomnia, unspecified; F11.10 Opioid abuse, uncomplicated
CPT/HCPCS: 36415; 36416; 51701; 70450; 71045; 80048; 80053; 80306; 80307; 81003; 82553; 83520; 83605; 84484; 85025; 86021; 86038; 86200; 86225; 87040; 87070; 87086; 87205; 87324; 87449; 93005; 93306; 94640; 94760; 96361; 96365; 96366; 96375; 96376; 99406; A4216; C9113; G0378; G8978-GP-CI; G8979-GP-CI; G8980-GP-CI; G8996-GN-CK; G8997-GN-CJ; J0456; J0692; J0696; J1956; J2310; J2543; J2920; J3370; J7050; J7611; J7620

== ENCOUNTER 2018-07-04 22:14 | Inpatient (IN) | payer MEDICARE ==
--- NOTE | 2018-07-04 22:59 | RAD ---
EXAM: UPRIGHT PORTABLE CHEST ONE VIEW: 07/04/18 HISTORY: 78-year-old male with history of fever and dyspnea. COMPARISON: 09/18/17. The costophrenic angles are not completely included on this study. Postop midline sternotomy. Heart s ize is within normal limits. No confluent pneumonia, overt edema, or pleural effusion. IMPRESSION: Costophrenic angles are not completely included on this study. Postop midline sternotomy. No signifi cant acute intrathoracic disease. Atherosclerosis of the aorta. POS: [facility]
[2018-07-04] MEDS ORDERED: cefTRIAXone\\ROCEPHIN 1 GM VIAL ONE (23:11)
[2018-07-04] MEDS ORDERED: Acetaminophen 500 MG TAB ONE (23:11)
[2018-07-04 23:26] LABS: #Basophils 0.1 thou/uL (0.0-0.2); #Eosinphils 0.1 thou/uL (0.0-0.7); #Monocytes 0.6 thou/uL (0.11-0.59); #Neutrophils 8.7 thou/uL (1.40-6.50); %Eosinophils 1.3 % (0.0-10.0); %Lymphocytes 9.4 % (21.0-51.0); %Monocytes 5.4 % (0.0-10.0); %Neutrophils 82.9 % (42.0-75.0); Hemoglobin 11.5 g/dL (14.0-18.0); Mean Corpuscular HGB CONC 30.7 g/dL (32.0-36.0); Mean Corpuscular Hemoglobin 28.9 pg (27.0-31.0); Mean Corpuscular Volume 94.3 fL (78.0-98.0); Mean Platelet Volume 10.1 fL (7.4-10.4); Platelet Count 97 thou/uL (130-400); Platelet Morphology Comment Appears Decreased; RBC Distribution Width 12.8 % (11.5-14.5); Red Blood Cell (RBC) Count 3.98 mill/uL (4.70-6.10); White Blood Cell (WBC) Count 10.5 thou/uL (4.8-10.8)
[2018-07-04 23:37] LABS: CKMB 3.6 ng/mL (0-6.6)
[2018-07-04 23:40] LABS: Potassium 4.7 mmol/L (3.5-5.1)
[2018-07-04 23:44] LABS: Bilirubin, Total 0.2 mg/dL (0.2-1.2); Calcium 9.1 mg/dL (7.8-10.44); Carbon Dioxide 20 mmol/L (23-31); Chloride 98 mmol/L (98-107); Glucose 115 mg/dL (83-110); Protein, Total 8.4 g/dL (5.8-8.1); Sodium 130 mmol/L (136-145)
[2018-07-04 23:45] LABS: Albumin 4.3 g/dL (3.4-4.8); Anion Gap 17 mmol/L (10-20); Globulin 4.1 g/dL (2.4-3.5)
[2018-07-04 23:47] LABS: Alkaline Phosphatase 42 U/L (40-150); BUN (Urea Nitrogen) 18 mg/dL (8.4-25.7); Calc. Creatinine Clearance 0 mL/min (70-130); Estimated GFR-MDRD 52
[2018-07-04 23:48] LABS: ALT (SGPT) 8 U/L (8-55); AST (SGOT) 19 U/L (5-34); CK (CPK) 85 U/L (30-200)
[2018-07-04] MEDS ORDERED: Azithromycin 500 MG VIAL ONE (23:54)
[2018-07-05 00:31] LABS: Bilirubin Negative (Negative); Blood, Urine Negative (Negative); Clarity Clear (Clear); Glucose, Urine (Dipstick) Negative (Negative); Leukocyte Negative (Negative); Nitrite Negative (Negative); Protein, Urine (Dipstick) Trace mg/dL (Neg-Trace); Specific Gravity, Urine 1.015 (1.005-1.030); Urobilinogen 0.2 mg/dL (0.2-1.0); pH, Urine 5.5 (5.0-9.0)
[2018-07-05] MEDS: Sodium Chloride 0.9% 1,000 ML IV SCH ×4 (03:08→21:37)
[2018-07-05 03:10] VITALS: BMI 22.1
[2018-07-05 03:42] LABS: Lactic Acid 1.3 mmol/L (0.5-2.2)
[2018-07-05] MEDS: Acetaminophen 325 MG TAB PO PRN ×2 (05:59→15:01)
[2018-07-05] MEDS: Enoxaparin Sodium 40 MG/0.4 ML SYRINGE SC SCH (08:17)
[2018-07-05] MEDS ORDERED: Amlodipine 5 MG TAB PO PRN (08:24)
[2018-07-05] MEDS: cefTRIAXone\\ROCEPHIN 1 GM in Sodium Chloride 0.9% 100 ML IVPB SCH (09:00)
[2018-07-05] MEDS ORDERED: Non-Formulary Item 1 EACH (Pregabalin [Lyrica] 150 MG) PO SCH (09:00)
[2018-07-05] MEDS: Pregabalin 75 MG CAP PO SCH ×2 (09:03→21:38)
[2018-07-05] MEDS: Azithromycin 500 MG in Sodium Chloride 0.9% 250 ML 250 ML IVPB SCH (10:07)
--- NOTE | 2018-07-05 13:22 | ULT ---
BILATERAL LOWER EXTREMITY VENOUS DOPPLER ULTRASOUND: Date: 07-05-18 Comparison: None. History: Swelling, edema, pain, assess for DVT. Technique: Multiplanar grayscale sonographic imaging of the bilateral lower extremities obtained with color flow and spectral analysis. FINDINGS: The common femoral vein, greater saphenous vein, profunda femoral vein, femoral vein, popliteal vein and posterior tibial vein are patent. There is normal blood flow, augmentation, and compression withi n the deep venous system bilaterally. No evidence for DVT on either side. IMPRESSION: No evidence for deep venous thrombosis of either lower extremity. POS: [facility]
--- NOTE | 2018-07-05 13:27 | HP ---
HISTORY OF PRESENT ILLNESS: This is a 78-year-old white male with a history of diabetes, hypertension, hyperlipidemia, chronic pain, who presents with a 2-week history of productive cough becoming much worse. Over the past three days, the cough has become worse and has developed fever. He has become more weak and his appetite has decreased. His family was concerned and was brought to the emergency room. The family also noted his legs started to swell and became red. He is on Lasix p.r.n. by Dr. Neal. He last saw Dr. Neal approximately two months ago. He was evaluated in the emergency room, was found to have pneumonia, and was admitted for further treatment. PAST MEDICAL HISTORY: Do not resuscitate 07/08/2016, hyperlipidemia, hypertension, diabetes, chronic back and neck pain, neuropathy, history of TIA, history of CO, hypothyroidism. PAST SURGICAL HISTORY: Includes back surgery in 2012, colectomy, cardiac catheterization, three-vessel disease in August [address] Neal, coronary artery bypass grafting x4 by Dr. Cameron in 2013, back surgery x2, right renal artery stent placed by Dr. Lares in March of 2016. FAMILY HISTORY: Father at 79, of unknown cause. Mother at 67 with diabetes. Maternal grandmother with some unknown cancer. Multiple family members with heart disease. Son with neurofibromatosis. SOCIAL HISTORY: He has a long tobacco history. He drinks alcohol occasionally. He has one son and one daughter . 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 He is also retired from the [employer]. He is . His , Tori, worked at [employer] for many years. He presently takes care of the yard and manages multiple pet animals. February 2016. REVIEW OF SYSTEMS: As above. MEDICATIONS: 1. Aspirin 325 daily. 2. Lovastatin 20 daily. 3. Metformin 1000 b.i.d. 4. Levothyroxine 75 daily. 5. Lyrica 150 b.i.d. 6. Sertraline 100 daily. 7. Losartan 100 daily. 8. Xanax 0.5 at bedtime p.r.n. 9. [place] 10/325 q.i.d. 10. Fluoxetine 20 daily. 11. Albuterol p.r.n. ALLERGIES: NONE. PHYSICAL EXAMINATION: VITAL SIGNS: Temperature 98.8, pulse 59, respirations 20, pulse ox 96 on 2 L, and blood pressure 147/64. GENERAL: The patient is somewhat thin, in moderate respiratory distress from pneumonia. HEENT: Mucous membranes do appear dry. NECK: Supple. HEART: Regular rate and rhythm. LUNGS: Bilateral rales and rhonchi. ABDOMEN: Soft. EXTREMITIES: Trace edema, bilateral lower extremity erythema, may have a mild cellulitis. IMAGING DATA: Chest x-ray, portable, which is negative. LABORATORY DATA: White count 10.5, hemoglobin and hematocrit of 11 and 37. Sodium 130, potassium 4.7, creatinine 1.34, BUN 18, glucose 115, lactic acid 2.8 and 1.3. Troponin 1 less than 0.010. ASSESSMENT: 1. Pneumonia. 2. Lower extremity cellulitis. 3. Deconditioning. 4. Dehydration. 5. Sacral ulcer. 6. Chronic obstructive pulmonary disease exacerbation. PLAN: 1. Rocephin and Zithromax for pneumonia. 2. Lower extremity Doppler, rule out DVT. 3. Repeat chest x-ray, PA and lateral. 4. Hydrate with IV fluids. 5. Consult Wound Care. 6. Neb treatments q.6, Munira p.r.n. while awake. Job ID: [id number]
[2018-07-05] MEDS ORDERED: Non-Formulary Item 1 EACH (Lovastatin [Lovastatin] 20 MG) PO SCH (17:00)
[2018-07-05] MEDS: Aspirin 325 mg Enteric Coated Tablet PO SCH (21:37)
[2018-07-05] MEDS: Simvastatin 5 MG TAB PO SCH (21:37)
[2018-07-05] MEDS ORDERED: ALPRAZolam 0.5 MG TAB PO PRN (22:56)
[2018-07-05] MEDS ORDERED: HYDROcodone/Acetaminophen 10/325 mg Tablet PO PRN (22:57)
[2018-07-06] MEDS: Acetaminophen 325 MG TAB PO PRN (00:06)
[2018-07-06] MEDS: Sodium Chloride 0.9% 1,000 ML IV SCH ×2 (00:06→16:15)
[2018-07-06] MEDS: Levothyroxine Sodium 75 MCG TAB PO SCH (06:06)
[2018-07-06] MEDS: cloNIDine 0.1 MG TAB PO PRN ×4 (06:06→23:48)
[2018-07-06 06:58] LABS: #Eosinphils 0.2 thou/uL (0.0-0.7); #Lymphocytes 0.7 thou/uL (1.20-3.40); #Monocytes 0.7 thou/uL (0.11-0.59); #Neutrophils 8.8 thou/uL (1.40-6.50); %Basophils 0.2 % (0.0-1.0); %Eosinophils 2.2 % (0.0-10.0); %Lymphocytes 6.3 % (21.0-51.0); %Monocytes 6.9 % (0.0-10.0); %Neutrophils 84.4 % (42.0-75.0); Mean Corpuscular HGB CONC 33.2 g/dL (32.0-36.0); Mean Corpuscular Hemoglobin 30.8 pg (27.0-31.0); Mean Corpuscular Volume 92.9 fL (78.0-98.0); Mean Platelet Volume 7.8 fL (7.4-10.4); Platelet Count 163 thou/uL (130-400); RBC Distribution Width 12.3 % (11.5-14.5); Red Blood Cell (RBC) Count 3.55 mill/uL (4.70-6.10); White Blood Cell (WBC) Count 10.5 thou/uL (4.8-10.8)
[2018-07-06 07:16] LABS: ALT (SGPT) Less than 7 U/L (8-55); AST (SGOT) 11 U/L (5-34); Albumin 3.6 g/dL (3.4-4.8); Alkaline Phosphatase 40 U/L (40-150); Anion Gap 12 mmol/L (10-20); BUN (Urea Nitrogen) 12 mg/dL (8.4-25.7); Bilirubin, Total 0.4 mg/dL (0.2-1.2); Calc. Creatinine Clearance 68 mL/min (70-130); Calcium 8.8 mg/dL (7.8-10.44); Carbon Dioxide 24 mmol/L (23-31); Chloride 103 mmol/L (98-107); Estimated GFR-MDRD 84; Glucose 145 mg/dL (83-110); Potassium 4.2 mmol/L (3.5-5.1); Protein, Total 6.6 g/dL (5.8-8.1); Sodium 135 mmol/L (136-145)
[2018-07-06] MEDS ORDERED: HYDROcodone/Acetaminophen 10/325 mg Tablet PO SCH (09:30)
[2018-07-06] MEDS: Enoxaparin Sodium 40 MG/0.4 ML SYRINGE SC SCH (09:42)
[2018-07-06] MEDS: Pregabalin 75 MG CAP PO SCH ×2 (09:42→20:36)
[2018-07-06] MEDS: Losartan 25 MG TAB PO SCH (09:42)
[2018-07-06] MEDS: Azithromycin 500 MG in Sodium Chloride 0.9% 250 ML 250 ML IVPB SCH (09:44)
[2018-07-06] MEDS: cefTRIAXone\\ROCEPHIN 1 GM in Sodium Chloride 0.9% 100 ML IVPB SCH (09:44)
--- NOTE | 2018-07-06 10:19 | RAD ---
PA AND LATERAL CHEST: History: Pneumonia. FINDINGS: Comparison made with exam of 07-04-18. Changes of median sternotomy are again seen. The heart size is borderline. The aorta is tortuous. The lungs are well expanded with patchy infiltrates in the right mid and right lower lung zones. No pneu mothoraces are seen. Small bilateral pleural effusions are present. IMPRESSION: Pneumonia. POS: [facility]
--- NOTE | 2018-07-06 11:12 | PRG ---
DATE OF SERVICE: 07/06/2018 SUBJECTIVE: The patient is feeling much better this morning. He looks better this morning. Decreased cough and congestion. OBJECTIVE: VITAL SIGNS: Temperature 99.0, pulse 70, respirations 14, blood pressure 198/83. HEART: Regular rate and rhythm. LUNGS: Still with left-sided rhonchi and rales. ABDOMEN: Soft, nontender. EXTREMITIES: With decreased erythema of lower extremities. He looks much better today. LABORATORY DATA: White count 10.5, H and H 11 and 33. Sodium 135, potassium 4.2, creatinine 0.88, BUN 12, and glucose 145. ASSESSMENT: 1. Pneumonia, left-sided. 2. Lower extremity cellulitis, improved. 3. Deconditioning. 4. Dehydration, improved. 5. Sacral ulcer, stable. 6. Chronic obstructive pulmonary disease exacerbation. PLAN: 1. Continue antibiotics. 2. Repeat chest x-ray. 3. Resume hydrocodone for chronic pain. 4. The patient is wanting to be discharged home. 5. I believe he needs to stay at least 1 to 2 more days. Job ID: [id number]
[2018-07-06] MEDS: HYDROcodone/Acetaminophen 10/325 mg Tablet PO SCH ×2 (13:43→21:59)
[2018-07-06] MEDS: Simvastatin 5 MG TAB PO SCH (20:35)
[2018-07-06] MEDS: Aspirin 325 mg Enteric Coated Tablet PO SCH (20:36)
[2018-07-07] MEDS: Sodium Chloride 0.9% 1,000 ML IV SCH (02:00)
[2018-07-07] MEDS: HYDROcodone/Acetaminophen 10/325 mg Tablet PO SCH ×4 (05:53→22:52)
[2018-07-07] MEDS: Levothyroxine Sodium 75 MCG TAB PO SCH (05:53)
[2018-07-07] MEDS: Losartan 25 MG TAB PO SCH (08:01)
[2018-07-07] MEDS: Pregabalin 75 MG CAP PO SCH ×2 (08:01→20:46)
[2018-07-07] MEDS: Enoxaparin Sodium 40 MG/0.4 ML SYRINGE SC SCH (08:04)
[2018-07-07] MEDS: Azithromycin 500 MG in Sodium Chloride 0.9% 250 ML 250 ML IVPB SCH (08:13)
[2018-07-07] MEDS: cefTRIAXone\\ROCEPHIN 1 GM in Sodium Chloride 0.9% 100 ML IVPB SCH (11:36)
--- NOTE | 2018-07-07 14:03 | CON ---
DATE OF CONSULTATION: 07/07/2018 SUBJECTIVE: The patient is still with a remarkable cough; however, he is feeling better. Urinating well. OBJECTIVE: VITAL SIGNS: Temperature 99.2, pulse 78, respirations 18, pulse ox 96% on room air this morning, and blood pressure 162/94. HEART: Regular rate and rhythm. LUNGS: Still with significant right-sided rhonchi. ABDOMEN: Soft. EXTREMITIES: No edema. LABORATORY DATA: None. ASSESSMENT: 1. Right-sided aspiration pneumonia. 2. Lower extremity cellulitis, resolving. 3. Deconditioning. 4. Dehydration, improved. 5. Sacral ulcer. 6. Chronic obstructive pulmonary disease exacerbation. 7. Chronic low back pain. PLAN: 1. The patient agrees to stay one more day. He is wanting to go home to his animals. 2. The patient is adamant about wanting his pain medications. He is well aware of his persistent aspiration. He has declined a PEG tube in the past and he states he would rather than not eat and he also states he cannot function without his pain medications. 3. Resume hydrocodone four per day. He states he will go to three per day once discharged. 4. Discharge home in the a.m. Job ID: [id number]
--- NOTE | 2018-07-07 14:43 | PQF ---
CLINICAL DOCUMENTATION IMPROVEMENT CLARIFICATION FORM: ICD-10 Updated PLEASE DO AN ADDENDUM TO THE PROGRESS NOTE WITH ANY DOCUMENTATION UPDATES OR ADDITIONS AND CARRY THROUGH TO DC SUMMARY. THANK YOU. DATE: 07/07/2018 ATTN: Dr. Landaverde Please exercise your independent, professional judgment in responding to the clarification form. Clinical indicators are provided on the bottom of this form for your review Please check appropriate box(es): [ ] Sepsis due to: [ ] Severe sepsis with acute organ dysfunction of: [ ] Localized infection without sepsis [ ] Other diagnosis [ ] Unable to determine In addition, please specify: Present on Admission (POA): [ ] Yes [ ] No [ ] Unable to determine For continuity of documentation, please document condition throughout progress notes and discharge summary. Thank You. CLINICAL INDICATORS - SIGNS / SYMPTOMS / LABS ED RECORD 2018: 87 on Room Air Resp 22 Temp 101.4 H&P 07/04/2018: Over the past 3 days, the cough has become worse and has developed fever. Lactic acid 2.8 Pneumonia Lower extremity cellulitis PN 07/07: Right-sided aspiration pneumonia. RISKS: H&P: 78 yrs old. Hx of dm, HTN. Pneumonia. Lower extremity cellulitis. Sacral ulcer. COPD exacerbation. TREATMENT: H&P: Rocephin and Zithromax for pneumonia Thank you, Beena (This form is maintained as a part of the permanent medical record) 2015 [employer]. All Rights Reserved Beena Dickinson RN, BSN [email or web address] Office: [phone] [facility]
[2018-07-07] MEDS: Simvastatin 5 MG TAB PO SCH (20:45)
[2018-07-07] MEDS: Aspirin 325 mg Enteric Coated Tablet PO SCH (20:46)
[2018-07-07] MEDS: cloNIDine 0.1 MG TAB PO PRN ×2 (21:15→22:51)
[2018-07-07] MEDS: Acetaminophen 325 MG TAB PO PRN (21:15)
[2018-07-08] MEDS: Acetaminophen 325 MG TAB PO PRN (02:05)
[2018-07-08] MEDS: cloNIDine 0.1 MG TAB PO PRN ×2 (02:13→05:18)
[2018-07-08] MEDS: Levothyroxine Sodium 75 MCG TAB PO SCH (05:18)
[2018-07-08] MEDS: HYDROcodone/Acetaminophen 10/325 mg Tablet PO SCH ×2 (05:18→13:02)
[2018-07-08] MEDS: Losartan 25 MG TAB PO SCH (07:50)
[2018-07-08] MEDS: Pregabalin 75 MG CAP PO SCH (07:51)
[2018-07-08] MEDS: Enoxaparin Sodium 40 MG/0.4 ML SYRINGE SC SCH (07:52)
[2018-07-08] MEDS: Azithromycin 500 MG in Sodium Chloride 0.9% 250 ML 250 ML IVPB SCH (09:50)
[2018-07-08 11:06] VITALS: BP 157/82; TEMP 98
[2018-07-08] MEDS: cefTRIAXone\\ROCEPHIN 1 GM in Sodium Chloride 0.9% 100 ML IVPB SCH (13:03)
--- NOTE | 2018-07-09 01:17 | DIS ---
DATE OF ADMISSION: 07/04/2018 DATE OF DISCHARGE: 07/08/2018 DISCHARGE DIAGNOSES: 1. Aspiration pneumonia, right-sided. 2. Lower extremity cellulitis, resolved. 3. Deconditioning. 4. Dehydration, resolved. 5. Sacral ulcer. 6. Chronic obstructive pulmonary disease exacerbation. 7. Chronic low back pain. DISCHARGE MEDICATIONS: 1. Levaquin 500 one p.o. daily. 2. Norvasc 5 daily. 3. Aspirin 325 daily. 4. Hydrocodone 10/325 one p.o. t.i.d. 5. DuoNeb treatments q.6h p.r.n. 6. Synthroid 75 daily. 7. Lovastatin 20 daily. 8. Lyrica 150 p.o. b.i.d. 9. Zoloft 100 daily. 10. Lasix 20 p.r.n. 11. Metformin 1000 p.o. b.i.d. BRIEF HISTORY: This is a 78-year-old white male with a history of diabetes, hypertension, hyperlipidemia, chronic pain, and COPD, who presents with a 2-week history of productive cough worse over the past 3 days. He is complaining of increasing weakness and decreased appetite. His family is very concerned and brought to the emergency room. He has been followed by Dr. Neal. HOSPITAL COURSE: The patient was found to have a right-sided aspiration pneumonia. He has failed multiple Speech Therapy evaluations in the past. However, he refuses a PEG tube and is adamant about eating and living as he wants to live. He is well aware of the dangers of narcotics that he takes, but it is the only way he functions. The patient is adamant about going home today, although I advised him to stay a few more days. He has improved dramatically. Then on room air, his pulse ox are in the mid 80s. Plan to discharge him on home oxygen. We will give him another 10 days of Levaquin. He will continue his DuoNeb treatments at home. He will follow up in the office in 1 week. The patient is happy at home with his animals and does well while on his pain medications. We have attempted to stop his pain medications in the past and he did very poorly. We will continue present treatment. The patient may likely return to the hospital. Job ID: [id number]
--- NOTE | 2018-07-12 11:44 | PQF ---
CLINICAL DOCUMENTATION IMPROVEMENT CLARIFICATION FORM: ICD-10 Updated PLEASE DO AN ADDENDUM TO THE PROGRESS NOTE WITH ANY DOCUMENTATION UPDATES OR ADDITIONS AND CARRY THROUGH TO DC SUMMARY. THANK YOU. DATE: 07/07/2018; 07/12/18 ATTN: Dr. Landaverde Please exercise your independent, professional judgment in responding to the clarification form. Clinical indicators are provided on the bottom of this form for your review Please check appropriate box(es): [ ] Sepsis due to: [ ] Severe sepsis with acute organ dysfunction of: [ ] Localized infection without sepsis [ ] Other diagnosis [ ] Unable to determine In addition, please specify: Present on Admission (POA): [ ] Yes [ ] No [ ] Unable to determine For continuity of documentation, please document condition throughout progress notes and discharge summary. Thank You. CLINICAL INDICATORS - SIGNS / SYMPTOMS / LABS ED RECORD 2018: 87 on Room Air Resp 22 Temp 101.4 H&P 07/04/2018: Over the past 3 days, the cough has become worse and has developed fever. Lactic acid 2.8 Pneumonia Lower extremity cellulitis PN 07/07: Right-sided aspiration pneumonia. RISKS: H&P: 78 yrs old. Hx of dm, HTN. Pneumonia. Lower extremity cellulitis. Sacral ulcer. COPD exacerbation. TREATMENT: H&P: Rocephin and Zithromax for pneumonia Thank you, Beena (This form is maintained as a part of the permanent medical record) 2014 [employer]. All Rights Reserved Beena Dickinson RN, BSN [email or web address] Office: [phone] [facility]
== END 2018-07-08 16:20 | disposition home or self-care (01) | DRG 178 ==
LOC: SCSER 22:14 → T4-A 23:55
PROVIDERS: ADMIT Family Medicine; ATTEND Family Medicine
DX: J69.0 Pneumonitis due to inhalation of food and vomit (principal); J44.1 Chronic obstructive pulmonary disease with (acute) exacerbation; L03.116 Cellulitis of left lower limb; L03.115 Cellulitis of right lower limb; E86.0 Dehydration; L89.152 Pressure ulcer of sacral region, stage 2; Z95.1 Presence of aortocoronary bypass graft; E11.9 Type 2 diabetes mellitus without complications; I10 Essential (primary) hypertension; Z79.82 Long term (current) use of aspirin; Z79.899 Other long term (current) drug therapy; Z66 Do not resuscitate; Z86.73 Personal history of transient ischemic attack (TIA), and cerebral infarction without residual deficits; I25.2 Old myocardial infarction; E78.5 Hyperlipidemia, unspecified; M54.9 Dorsalgia, unspecified; M54.2 Cervicalgia; G89.29 Other chronic pain; Z79.891 Long term (current) use of opiate analgesic
CPT/HCPCS: 36415; 36416; 71045; 71046; 80053; 81003; 82550; 82553; 83605; 83880; 84484; 85025; 87040; 87804; 93005; 93970; 94640; 96361; 96365; 96367; J0456; J0696; J1650; J7050; J7620

== ENCOUNTER 2018-07-12 19:34 | Inpatient (IN) | payer MEDICARE ==
[~2018-07-12 19:34] MED LIST: ISOVUE-370 76%-LOCM 1 ML ONE
[2018-07-12 20:19] LABS: #Eosinphils 1.2 thou/uL (0.0-0.7); #Lymphocytes 0.7 thou/uL (1.20-3.40); #Monocytes 0.6 thou/uL (0.11-0.59); #Neutrophils 6.6 thou/uL (1.40-6.50); %Basophils 0.4 % (0.0-1.0); %Eosinophils 13.4 % (0.0-10.0); %Lymphocytes 7.6 % (21.0-51.0); %Monocytes 6.5 % (0.0-10.0); Hemoglobin 10.6 g/dL (14.0-18.0); Mean Corpuscular HGB CONC 31.5 g/dL (32.0-36.0); Mean Corpuscular Volume 95.4 fL (78.0-98.0); Mean Platelet Volume 7.1 fL (7.4-10.4); Platelet Count 232 thou/uL (130-400); Red Blood Cell (RBC) Count 3.52 mill/uL (4.70-6.10); White Blood Cell (WBC) Count 9.1 thou/uL (4.8-10.8)
[2018-07-12 20:42] LABS: ALT (SGPT) 8 U/L (8-55); AST (SGOT) 14 U/L (5-34); Albumin 3.4 g/dL (3.4-4.8); Alkaline Phosphatase 39 U/L (40-150); Anion Gap 18 mmol/L (10-20); BUN (Urea Nitrogen) 49 mg/dL (8.4-25.7); Bilirubin, Total Less than 0.2 mg/dL (0.2-1.2); CK (CPK) 154 U/L (30-200); Calc. Creatinine Clearance 0 mL/min (70-130); Calcium 8.8 mg/dL (7.8-10.44); Carbon Dioxide 18 mmol/L (23-31); Chloride 101 mmol/L (98-107); Estimated GFR-MDRD 24; Globulin 3.1 g/dL (2.4-3.5); Glucose 111 mg/dL (83-110); Lipase 13 U/L (8-78); Potassium 5.2 mmol/L (3.5-5.1); Protein, Total 6.5 g/dL (5.8-8.1); Sodium 132 mmol/L (136-145)
--- NOTE | 2018-07-12 21:04 | CT ---
CT PULMONARY ANGIOGRAM WITH IV CONTRAST AND 3D MIP RECONSTRUCTIONS 07/12/18 PROVIDED CLINICAL HISTORY: Chest pain. FINDINGS: There is no evidence for central or segmental pulmonary embolus. Prominent by number but not patholog ically enlarged mediastinal and hilar lymph nodes are present, nonspecific. Vascular calcification is noted. Median sternotomy changes are seen. There is bibasilar parenchymal consolidation. There are small bilateral pleural effusions. There is m aterial of increased density present within the left medial basilar segmental bronchus. There is a 7 mm left lower lobe noncalcified pulmonary nodule. There is a 1.2 cm right middle lobe pulmonary nodul e. The visualized portions of the upper abdomen demonstrate no acute abnormality. The osseous structures demonstrate no lytic or blastic lesions. IMPRESSION: 1. No evidence for central or segmental pulmonary embolus. 2. Bibasilar lung consolidation that may reflect pneumonia and/or aspiration pneumonitis. 3. Material of increased density within left lower lobe bronchus presumably reflects aspirated m aterial. Other etiologies are not excluded. 4. Pulmonary nodules as described above. Given that these could be infectious in nature, short t erm followup CT examination in 6 to 12 weeks recommended to evaluate for resolution particularly of t he larger right middle lobe nodule. POS: [facility]
[2018-07-12] MEDS ORDERED: Enoxaparin Sodium 30 MG/0.3 ML SYRINGE ONE (21:33)
[2018-07-12] MEDS ORDERED: Cefepime 2 GM VIAL ONE (21:33)
[2018-07-12] MEDS ORDERED: Enoxaparin Sodium 40 MG/0.4 ML SYRINGE ONE (21:33)
--- NOTE | 2018-07-12 21:53 | RAD ---
PORTABLE CHEST: 07/12/18 PROVIDED CLINICAL HISTORY: Cough. FINDINGS: Comparison is made with the examination performed 07/04/18. The cardiac and mediastinal silhouette is unchanged in appearance. Median sternotomy changes are seen . Blunting of each costophrenic angle compatible with pleural fluid. No evidence for pneumothorax. IMPRESSION: Cardiomegaly and bilateral pleural effusions. Please see subsequently performed chest CT for further details. POS: [facility]
[2018-07-12] MEDS ORDERED: Norepinephrine 8 MG/0.9% NS 250 ML ONE (23:43)
--- NOTE | 2018-07-12 23:53 | RAD ---
PORTABLE CHEST 07/12/18 PROVIDED CLINICAL HISTORY: Central line placement. FINDINGS: Comparison is made with the study performed earlier same date. Interval placement of right IJ central line the tip of which terminates in the expected location of the SVC. No evidence for pneumothorax. Additional significant interval change with respect to the prior exam is not apparent. IMPRESSION: As above. POS: [facility]
[2018-07-12 23:57] LABS: Critical Call Chem Troponin I RESULT DECREASING; Troponin I 0.646 ng/mL (< 0.028)
[2018-07-13] MEDS ORDERED: Amlodipine 5 MG TAB PO PRN (01:08)
[2018-07-13] MEDS ORDERED: Dextrose 50% Abboject 50 ML SYRINGE SLOW IVP PRN (01:09)
[2018-07-13] MEDS ORDERED: Dextrose 5% in Water 1,000 ML IV PRN (01:09)
[2018-07-13] MEDS ORDERED: Insulin Regular 300 UNITS/3 ML VIAL SC PRN (01:09)
[2018-07-13] MEDS ORDERED: Norepinephrine 8 MG/0.9% NS 250 ML IVPB SCH (01:15)
[2018-07-13 02:37] LABS: #Basophils 0.1 thou/uL (0.0-0.2); #Eosinphils 1.4 thou/uL (0.0-0.7); #Lymphocytes 0.7 thou/uL (1.20-3.40); #Monocytes 0.5 thou/uL (0.11-0.59); #Neutrophils 6.6 thou/uL (1.40-6.50); %Basophils 0.7 % (0.0-1.0); %Lymphocytes 7.4 % (21.0-51.0); %Monocytes 5.8 % (0.0-10.0); %Neutrophils 71.1 % (42.0-75.0); Hemoglobin 9.6 g/dL (14.0-18.0); Mean Corpuscular HGB CONC 31.6 g/dL (32.0-36.0); Mean Corpuscular Hemoglobin 30.2 pg (27.0-31.0); Mean Corpuscular Volume 95.5 fL (78.0-98.0); Mean Platelet Volume 7.1 fL (7.4-10.4); Platelet Count 202 thou/uL (130-400); RBC Distribution Width 12.8 % (11.5-14.5); Red Blood Cell (RBC) Count 3.17 mill/uL (4.70-6.10); White Blood Cell (WBC) Count 9.3 thou/uL (4.8-10.8)
[2018-07-13 03:09] LABS: Anion Gap 12 mmol/L (10-20); BUN (Urea Nitrogen) 46 mg/dL (8.4-25.7); Calc. Creatinine Clearance 28 mL/min (70-130); Calcium 8.2 mg/dL (7.8-10.44); Carbon Dioxide 21 mmol/L (23-31); Chloride 106 mmol/L (98-107); Estimated GFR-MDRD 29; Glucose 107 mg/dL (83-110); Potassium 4.8 mmol/L (3.5-5.1); Sodium 134 mmol/L (136-145)
[2018-07-13 03:27] LABS: Troponin I 0.666 ng/mL (< 0.028)
[2018-07-13] MEDS ORDERED: Enoxaparin Sodium 80 MG/0.8 ML SYRINGE SC SCH (03:45)
[2018-07-13] MEDS: Levothyroxine Sodium 75 MCG TAB PO SCH (05:07)
[2018-07-13] MEDS: HYDROcodone/Acetaminophen 10/325 mg Tablet PO SCH ×4 (05:07→21:51)
[2018-07-13] MEDS: Pantoprazole 40 MG VIAL IVP SCH (08:42)
[2018-07-13] MEDS: Pregabalin 75 MG CAP PO SCH ×2 (08:42→21:50)
[2018-07-13] MEDS: Cefepime 1 GM in Sodium Chloride 0.9% 100 ML IVPB SCH ×2 (08:42→21:52)
[2018-07-13] MEDS: Sodium Chloride 0.9% 1,000 ML IV SCH ×2 (08:54→21:48)
[2018-07-13] MEDS: Nicotine 14 MG PATCH TD SCH (08:54)
--- NOTE | 2018-07-13 08:56 | HP ---
ADMITTING PHYSICIAN: Dr. Hector Landaverde with Dr. Juan C goode. HISTORY OF PRESENT ILLNESS: The patient is a 78-year-old male, who was recently hospitalized here at [facility], apparently with some type of bronchial pneumonia. The patient's family reports they had found him with his 02 off at home, his saturations were 60% with a heart rate around 105, they tried to increase his O2, but did not seem to report any significant improvement. He has had several falls today. He notes no chest pain, shortness of breath. No difficulty breathing. The patient was seen and evaluated in the emergency room, and found to have O2 sats of 98%, became more alert. However, during the evaluation, it was noted that his D-dimer and troponin were slightly elevated. He also became somewhat more hypotensive in the hospital. Also, he had a CT scan done to rule out pulmonary embolus, which did reveal bibasilar lung consolidation with pneumonia. As noted, the patient was recently here in the hospital, was discharged on 07/08/2018. He apparently had been seeing Dr. Landaverde as an outpatient, receiving daily Rocephin shots. There has been no fever reported associated with this. No nausea, vomiting, or diarrhea. Otherwise, no other medical complaints are otherwise noted. It is noted the patient was reluctant to come to the hospital. ALLERGIES: HE HAS NO KNOWN ALLERGIES. CURRENT MEDICATIONS: Aspirin, lovastatin, metformin, levothyroxine, Lyrica, sertraline, losartan, Xanax, [place], fluoxetine, and albuterol. PAST MEDICAL HISTORY: Positive for hyperlipidemia, hypertension, diabetes, back and neck pain, chronic neuropathy, TIA. PAST SURGICAL HISTORY: Positive for multiple back surgeries, colectomy, cardiac catheterization, coronary artery bypass graft, back surgery, right renal artery stent. FAMILY HISTORY: He is a . SOCIAL HISTORY: He has a long history of tobacco abuse. He drinks alcohol occasionally. 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 His family does work here at [employer]. REVIEW OF SYSTEMS: GI: Negative. : Negative. CARDIOVASCULAR: Positive as above. PHYSICAL EXAMINATION: VITAL SIGNS: Blood pressure is now 130/78, he is now on Levophed drip; pulse 77; O2 saturation 97% on 2 L. GENERAL: He is alert, active, significant distress. HEENT: Normocephalic and atraumatic. Sclerae and conjunctivae clear. NECK: Supple. Full range of motion. No masses. LUNGS: Clear. HEART: Reveals a regular rate and rhythm. No murmurs, gallops, or rubs. ABDOMEN: Soft, nontender. Bowel sounds present and active. No hepatosplenomegaly is noted. There is no evidence of rebound or guarding otherwise noted. EXTREMITIES: No clubbing, edema, or cyanosis. There is some redness of the lower extremities otherwise noted. LABORATORY DATA/IMAGING: White blood count is 9.1, hemoglobin 10.6, hematocrit 33.6. Sodium 132, potassium 5.2, chloride 101, CO2 18, BUN 49, creatinine 2.59 which is elevated from previous admissions. Initial troponin 0.66, secondary troponin 0.646. Cardiac CK-MB is elevated at 8.0. BNP is 746.2. CT scan of the chest reveals no evidence of pulmonary embolus, as noted bilateral pulmonary consolidation is otherwise noted. IMPRESSION: 1. This is a 78-year-old male with previous pneumonia, now appeared to have more consolidated pneumonia. 2. Elevated troponin, possible [id number] elevated myocardial infarction. 3. History of chronic obstructive pulmonary disease. 4. History of chronic pain. 5. History of type 2 diabetes mellitus. PLAN: 1. The patient will be admitted to CCU since he is now on Levophed drip. Cardiac protocol will be followed. We will consult Cardiology. 2. He has acute renal injury with elevated creatinine. We will consult Nephrology. Cautious IV fluids will be given. 3. He will be continued on IV antibiotics. He has already received one dose of Levaquin as well as one dose of cefepime in the emergency room. 4. Dr. Landaverde will take over the care in a.m. 5. I have discussed resuscitation status with the patient extensively and with family at bedside. He wishes to be intubated, chemical only. This was fully discussed with the patient extensively. Job ID: [id number]
--- NOTE | 2018-07-13 10:27 | CON ---
DATE OF CONSULTATION: 07/13/2018 PULMONARY/CRITICAL CARE CONSULTATION. TIME SPENT: 35 minutes of critical care time. CONSULTING PHYSICIAN: Hector Landaverde MD REASON FOR CONSULTATION: ICU placement. HISTORY OF PRESENT ILLNESS: Mr. Goss is a 78-year-old male, who was rehospitalized last night with increasing shortness of breath, low blood pressure, and general lethargy. He had just been in the hospital a few weeks ago with pneumonia and was discharged on Tuesday. The patient still had not been doing well and been going to his doctor's office daily for IM shots of Rocephin. His [id number] called me last night stating that he was doing poorly at home and was refusing to go into the hospital. I told her that it sounds like he had altered mental status and could not make good decisions for herself and I told her to call 911, and he was subsequently transported to this facility. In the ER, he was hypotensive. He was briefly on Levophed that has been weaned off this morning. He now is awake, alert, and seems to be in reasonable spirits. PAST MEDICAL HISTORY: 1. Type 2 diabetes mellitus. 2. COPD. 3. Hyperlipidemia. 4. Recent pneumonia. 5. Myocardial infarction. PAST SURGICAL HISTORY: 1. Back surgeries for colectomy. 2. Cardiac catheterization. 3. Coronary artery bypass grafting surgery. 4. Right renal artery stent. FAMILY MEDICAL HISTORY: Remarkable for diabetes mellitus, cancer, heart disease, and neurofibromatosis. SOCIAL HISTORY: He apparently smokes heavily. Drinks occasionally. 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 REVIEW OF SYSTEMS: Otherwise unremarkable. MEDICATIONS: Prior to admission reviewed include; 1. Metformin. 2. Catapres. 3. Zoloft. 4. Lyrica. 5. Lovastatin. 6. Synthroid. 7. Levaquin. 8. DuoNeb. 9. [place]. 10. Lasix. 11. Aspirin. 12. Norvasc. PHYSICAL EXAMINATION: VITAL SIGNS: Temperature 97.6, pulse 80, blood pressure 97/60, and O2 sat 93%. Intake not quantitated. Urine output 1100. HEENT: Mild bitemporal wasting. NECK: No adenopathy, JVD, or bruits. LUNGS: Crackles at both bases. CARDIAC: S1 and S2 regular. ABDOMEN: Colostomy noted. Right side has stool in colostomy bag. Abdomen otherwise nontender. EXTREMITIES: No clubbing, cyanosis, or edema. LABORATORY DATA: Sodium 134, potassium 4.8, chloride 106, CO2 of 21, BUN 46, creatinine 2.2, and glucose 107. D-dimer 2.5. White blood cell count 9.3, hematocrit 30.2, and platelet count 202. ASSESSMENT: This patient is suffering from severe deconditioning from a recent hospitalization for pneumonia. I doubt that he has recurrent pneumonia. CT shows bilateral infiltrates and small effusions, which I think are probably old. He has a 7-mm left lower lobe nodule and a 1.2-cm right middle lobe nodule, both of which will bare repeat imaging in the future. RECOMMENDATIONS: 1. Wean off Levophed as tolerated. 2. Continue slow IV hydration. 3. Continue antibiotics as you are doing. 4. Probably can transfer out to the telemetry floor later today. Job ID: [id number]
--- NOTE | 2018-07-13 14:50 | PRG ---
DATE OF SERVICE: 07/13/2018 SUBJECTIVE: This 78-year-old white male was re-admitted last night with shortness of breath, weakness, and increasing cough. The patient was recently hospitalized for aspiration pneumonia. He was treated for several days and was discharged home reluctantly. The patient demanded to go home at that time. He continued to have a persistent cough. He has been seen in the office for the past two days and given Rocephin shots. Finally, yesterday evening, he was somewhat weak and somewhat unresponsive. He was able to communicate, but very weak. Pulse ox was done, and it was noted to be in the 70s. He does have home O2, but he has not been wearing it. Therefore, he was brought to the emergency room. He was started on Levophed. The Levophed is now being turned off. His blood pressures have been rising. He is putting out more urine. OBJECTIVE: VITAL SIGNS: Temperature 97.6, pulse 80, respirations 19, blood pressure 97/60 and 125/75. HEART: Regular rate. LUNGS: With right-sided rhonchi. ABDOMEN: Soft. EXTREMITIES: With no edema. LABORATORY DATA: White count 9.3, H and H 9.6 and 30.2. Sodium 134, potassium 4.8, blood sugar 107. Troponin I of 0.646 and 0.666. ASSESSMENT: 1. Aspiration pneumonia. 2. Lower extremity cellulitis, mild. 3. Deconditioning. 4. Dehydration. 5. Sacral ulcer. 6. Chronic obstructive pulmonary disease exacerbation. 7. Chronic low back pain. PLAN: 1. Wean Levophed. 2. Hydrate. 3. Continue home medications to include: a. Norvasc. b. Aspirin. c. Lovastatin. d. Thyroid. e. Sertraline. f. [place] p.r.n. 4. Add Rocephin and Zithromax. 5. Family states his desire is to be a chemical code with intubation, but no chest compressions. Job ID: [id number]
[2018-07-13] MEDS: Lovastatin 20 MG TAB PO SCH (17:58)
[2018-07-13] MEDS: Aspirin 300 MG Suppository PR SCH (21:46)
[2018-07-13] MEDS: Aspirin 325 mg Enteric Coated Tablet PO SCH (21:50)
[2018-07-14 03:26] LABS: #Eosinphils 1.4 thou/uL (0.0-0.7); #Lymphocytes 0.7 thou/uL (1.20-3.40); #Monocytes 0.6 thou/uL (0.11-0.59); #Neutrophils 5.5 thou/uL (1.40-6.50); %Basophils 0.4 % (0.0-1.0); %Eosinophils 17.6 % (0.0-10.0); %Lymphocytes 8.3 % (21.0-51.0); %Neutrophils 66.7 % (42.0-75.0); Hemoglobin 9.5 g/dL (14.0-18.0); Mean Corpuscular Hemoglobin 29.9 pg (27.0-31.0); Mean Corpuscular Volume 93.4 fL (78.0-98.0); Mean Platelet Volume 6.8 fL (7.4-10.4); Platelet Count 214 thou/uL (130-400); RBC Distribution Width 12.8 % (11.5-14.5); Red Blood Cell (RBC) Count 3.16 mill/uL (4.70-6.10); White Blood Cell (WBC) Count 8.2 thou/uL (4.8-10.8)
[2018-07-14 03:53] LABS: Anion Gap 12 mmol/L (10-20); BUN (Urea Nitrogen) 31 mg/dL (8.4-25.7); Calc. Creatinine Clearance 42 mL/min (70-130); Calcium 8.1 mg/dL (7.8-10.44); Carbon Dioxide 22 mmol/L (23-31); Chloride 112 mmol/L (98-107); Estimated GFR-MDRD 47; Glucose 108 mg/dL (83-110); Potassium 4.6 mmol/L (3.5-5.1); Sodium 141 mmol/L (136-145)
--- NOTE | 2018-07-14 04:29 | CON ---
DATE OF CONSULTATION: CRITICAL CARE NOTE. TIME: 30 minutes. HISTORY OF PRESENT ILLNESS: The patient is an unfortunate 78-year-old gentleman who presented with weakness and altered mental status. The patient has a previous history of coronary artery disease. He is status post coronary bypass graft surgery. He also has a history of [id number] hypertension. The patient recently admitted with pneumonia. At home, he developed altered mental status, was found to be hypotensive, and admitted for further evaluation. The patient is unable to give a coherent history. PAST MEDICAL HISTORY: 1. Coronary artery disease. 2. Hypertension. 3. Dyslipidemia. 4. Diabetes mellitus. PAST SURGICAL HISTORY: Coronary bypass surgery and colon surgery. SOCIAL HISTORY: He has a previous history of tobacco abuse. MEDICATIONS: See nursing list. PHYSICAL EXAMINATION: GENERAL: He is a somnolent gentleman, in no acute distress. VITAL SIGNS: On Levophed with a blood pressure of 135/74. NECK: Showed no jugular venous distention. LUNGS: Coarse breath sounds bilateral. HEART: Regular rate and rhythm. Normal S1, S2. No murmurs. ABDOMEN: Nondistended. EXTREMITIES: Showed trace edema. LABORATORY DATA: Sodium 134, potassium 4.8, chloride 106, bicarbonate 21, BUN 46, creatinine 2.2. Troponin was 0.66. BNP is 746. White blood cell count 9.3, hemoglobin 8.6, hematocrit 30.2. His EKG revealed him to have normal sinus rhythm with a T-wave abnormality suggestive of ischemia. IMPRESSION: 1. Pneumonia. 2. Altered mental status. 3. Elevated troponin, probably secondary to demand ischemia. 4. History of coronary artery bypass surgery. 5. History of renal artery stenosis. 6. Renal insufficiency. 7. Diabetes mellitus. This gentleman presents with pneumonia and hypotension. His chest x-ray shows a possible right-sided infiltrate. The patient is being treated with IV antibiotics. The patient remains on low-dose Levophed. His blood pressure has improved. The patient's elevated troponin level is most likely secondary to demand ischemia. The patient will be continued on medical therapy. We will follow this patient with you through his hospitalization. Critical care time 30 minutes. Job ID: [id number] MTDD
[2018-07-14] MEDS: Sodium Chloride 0.9% 1,000 ML IV SCH ×2 (05:21→16:51)
[2018-07-14] MEDS: HYDROcodone/Acetaminophen 10/325 mg Tablet PO SCH (05:22)
[2018-07-14] MEDS: Levothyroxine Sodium 75 MCG TAB PO SCH (05:24)
--- NOTE | 2018-07-14 08:52 | PRG ---
DATE OF SERVICE: 07/14/2018 SUBJECTIVE: The patient has improved this morning. Blood pressure is maintaining. No complaints of nausea, vomiting, or chest pain. OBJECTIVE: VITAL SIGNS: Temperature 98.2, O2 sat 100% on 2 L O2, heart rate 68, and blood pressure 130/73. HEART: Regular rate and rhythm. LUNGS: Clear. ABDOMEN: Soft. EXTREMITIES: Trace edema. LABORATORY DATA: White count 8.2, H and H 9.5 and 29.5. Sodium 141, potassium 4.6, chloride 112, creatinine 1.44, BUN 31, and glucose 121. ASSESSMENT: 1. Aspiration pneumonia, stable. 2. Lower extremity cellulitis, improving. 3. Elevated troponin secondary to demand ischemia. 4. Deconditioning. 5. Dehydration, resolving. 6. Sacral ulcer, receiving wound care. 7. Chronic obstructive pulmonary disease exacerbation, stable. 8. Chronic low back pain. PLAN: 1. Transfer to telemetry. 2. PT, OT, and Speech Therapy consults. 3. Continue with cefepime and Levaquin. 4. Chemical code with intubation, but no chest compressions. 5. Difficult situation. The patient does not function without his pain medications. Family and the patient well aware that the pain medications work against him. He has persistent aspiration. He is well aware that he needs to eat, sitting up in a chair. We compromised. We will lower his [place] to 7.5 q.6 from 10. The patient is and family are well aware that he will continue to aspirate and is at risk for recurrent pneumonia. Job ID: [id number]
[2018-07-14] MEDS: Pregabalin 75 MG CAP PO SCH ×2 (09:04→21:57)
[2018-07-14] MEDS: Pantoprazole 40 MG VIAL IVP SCH (09:04)
[2018-07-14] MEDS: Cefepime 1 GM in Sodium Chloride 0.9% 100 ML IVPB SCH ×2 (09:04→21:57)
[2018-07-14] MEDS: Nicotine 14 MG PATCH TD SCH (09:12)
--- NOTE | 2018-07-14 09:48 | PRG ---
DATE OF SERVICE: 07/14/2018 SUBJECTIVE: He is feeling better today. He is much more awake and alert. OBJECTIVE: VITAL SIGNS: On exam, his temperature is 98.2, pulse 88, blood pressure 130/73, and O2 sat 100%. 24-hour intake 1858, output is 3488. HEENT: Unremarkable. NECK: No JVD. CHEST: Coarse breath sounds at the bases. CARDIAC: S1 and S2, regular. ABDOMEN: Soft. EXTREMITIES: No edema. LABORATORY DATA: White blood cell count 8.2, hematocrit 29.5, and platelet count 314. Sodium 141, potassium 4.6, chloride 112, CO2 of 22, BUN 31, creatinine 1.4, and glucose 108. ASSESSMENT: 1. Deconditioning. 2. Recent pneumonia. 3. Pulmonary nodule. PLAN: Continue hydration. Continue antibiotic. Transfer to medical floor. Discussed with Dr. Landaverde. Job ID: [id number]
[2018-07-14] MEDS: HYDROcodone/Acetaminophen 7.5/325 mg Tablet PO SCH ×2 (11:29→18:25)
[2018-07-14 13:51] VITALS: BMI 23.2
--- NOTE | 2018-07-14 15:07 | PQF ---
CLINICAL DOCUMENTATION IMPROVEMENT CLARIFICATION FORM: ICD-10 Updated PLEASE DO AN ADDENDUM TO THE PROGRESS NOTE WITH ANY DOCUMENTATION UPDATES OR ADDITIONS AND CARRY THROUGH TO DC SUMMARY. THANK YOU. DATE: 07/14/18 ATTN: Dr. Landaverde Please exercise your independent, professional judgment in responding to the clarification form. Clinical indicators are provided on the bottom of this form for your review Please check appropriate box(es): [ ] Sepsis due to: (Pna, UTI, etc.) [ ] Severe sepsis with acute organ dysfunction of: (Examples: respiratory failure, encephalopathy, acute kidney failure, other) [ ] Septic Shock [ ] Localized infection without sepsis [ ] Other diagnosis [ ] Unable to determine In addition, please specify: Present on Admission (POA): [ ] Yes [ ] No [ ] Unable to determine For continuity of documentation, please document condition throughout progress notes and discharge summary. Thank You. CLINICAL INDICATORS - SIGNS / SYMPTOMS / LABS ER Doctor notes: Unfortunately, he has drifted down with his BP to SBP 75. He has been given1.5 liters of fluid & with his CHF history, will need to be judicious with his fluid. Will need central line and pressors. Pt appears to have sepsis with NSTEMI and pneumonia. H&P 07/13: Creatinine 2.59 He has acute renal injury with elevated creatinine Pn 07/13: Yesterday evening. Pulse ox was done, and it was noted to be in the 70s. He does have home O2, but he has not been wearing it. Cardiology consult 07/13: Pneumonia. Altered mental status. Elevated troponin, probably secondary to demand ischemia. Renal insufficiency. RISKS: H&P 07/13: Recently hospitalized with some type of bronchial pneumonia. Hx of COPD, DM 2. He has acute renal injury with elevated creatinine. TREATMENT: Order 07/13-07/14: Levophed 250 ml IV Order 07/13: Levaquin 750mg IV Q 24 hr 07/13: Cefepime 1 gm IV Q 12 hr Thank you, Beena (This form is maintained as a part of the permanent medical record) 2015 [employer] All Rights Reserved Beena Dickinson RN, BSN [email or web address] Office: [phone] [facility]
--- NOTE | 2018-07-14 15:25 | PQF ---
CLINICAL DOCUMENTATION IMPROVEMENT CLARIFICATION FORM: ICD-10 Updated PLEASE DO AN ADDENDUM TO THE PROGRESS NOTE WITH ANY DOCUMENTATION UPDATES OR ADDITIONS AND CARRY THROUGH TO DC SUMMARY. THANK YOU. DATE: 07/14/18 ATTN: Dr. Landaverde Please exercise your independent, professional judgment in responding to the clarification form. Clinical indicators are provided on the bottom of this form for your review Please check appropriate box(s): [ ] Acute Respiratory Failure: [ ] with Hypoxia [ ] with Hypercapnia [ ] Acute On Chronic Respiratory Failure: [ ] with Hypoxia [ ] with Hypercapnia [ ] Chronic Respiratory Failure only [ ] with Hypoxia [ ] with Hypercapnia [ ] Other diagnosis [ ] Unable to determine In addition, please specify: Present on Admission (POA): [ ] Yes [ ] No [ ] Unable to determine For continuity of documentation, please document condition throughout progress notes and discharge summary. Thank You. CLINICAL INDICATORS - SIGNS / SYMPTOMS / LABS Pn 07/13: Yesterday evening. Pulse ox was done, and it was noted to be in the 70s. He does have home O2, but he has not been wearing it. Resp. Assess. 07/13 @ 0232 Oxygen saturation 94% O2 2L NC RISKS: H&P 07/13: Recently hospitalized with some type of bronchial pneumonia. Hx of COPD, DM 2. PN 07/13: He does have home O2, but he has not been wearing it. Aspiration pneumonia. Deconditioning. Dehydration. COPD exac. TREATMENT: Order 07/13: Resp: Pulse Ox/O2 Sat. On admission and daily -Notify provider if oxygen less than 92% Order 07/13: Resp: O2 to keep sats 90% prn Order 07/13: Levaquin 750mg IV Order 07/13: Maxipime 1 gm IV q 12hr Thank you, Beena (This form is maintained as a part of the permanent medical record) 2014 [employer]. All Rights Reserved Beena Dickinson RN, BSN [email or web address] Office: [phone] [facility]
[2018-07-14] MEDS: Lovastatin 20 MG TAB PO SCH (16:50)
[2018-07-14] MEDS: cloNIDine 0.1 MG TAB PO PRN (18:25)
[2018-07-14] MEDS: Aspirin 325 mg Enteric Coated Tablet PO SCH (21:57)
[2018-07-14] MEDS: Amlodipine 5 MG TAB PO SCH (21:57)
[2018-07-14] MEDS: Aspirin 300 MG Suppository PR SCH (22:34)
[2018-07-15] MEDS: HYDROcodone/Acetaminophen 7.5/325 mg Tablet PO SCH ×5 (00:28→23:37)
[2018-07-15 05:31] LABS: #Eosinphils 1.4 thou/uL (0.0-0.7); #Lymphocytes 1.1 thou/uL (1.20-3.40); #Monocytes 0.8 thou/uL (0.11-0.59); #Neutrophils 5.3 thou/uL (1.40-6.50); %Basophils 0.5 % (0.0-1.0); %Eosinophils 15.9 % (0.0-10.0); %Monocytes 9.1 % (0.0-10.0); %Neutrophils 61.4 % (42.0-75.0); Hemoglobin 8.8 g/dL (14.0-18.0); Mean Corpuscular HGB CONC 31.6 g/dL (32.0-36.0); Mean Corpuscular Hemoglobin 29.5 pg (27.0-31.0); Mean Corpuscular Volume 93.2 fL (78.0-98.0); Mean Platelet Volume 7.4 fL (7.4-10.4); Platelet Count 228 thou/uL (130-400); RBC Distribution Width 12.8 % (11.5-14.5); Red Blood Cell (RBC) Count 2.98 mill/uL (4.70-6.10); White Blood Cell (WBC) Count 8.6 thou/uL (4.8-10.8)
[2018-07-15] MEDS: Levothyroxine Sodium 75 MCG TAB PO SCH (05:45)
[2018-07-15 06:01] LABS: Anion Gap 10 mmol/L (10-20); BUN (Urea Nitrogen) 20 mg/dL (8.4-25.7); Calc. Creatinine Clearance 55 mL/min (70-130); Calcium 7.8 mg/dL (7.8-10.44); Carbon Dioxide 24 mmol/L (23-31); Chloride 108 mmol/L (98-107); Estimated GFR-MDRD 66; Glucose 112 mg/dL (83-110); Potassium 4.1 mmol/L (3.5-5.1); Sodium 138 mmol/L (136-145)
[2018-07-15] MEDS: Pantoprazole 40 MG VIAL IVP SCH (08:36)
[2018-07-15] MEDS: Cefepime 1 GM in Sodium Chloride 0.9% 100 ML IVPB SCH ×2 (08:37→21:10)
[2018-07-15] MEDS: Pregabalin 75 MG CAP PO SCH ×2 (08:38→21:11)
[2018-07-15] MEDS: Nicotine 14 MG PATCH TD SCH (09:58)
--- NOTE | 2018-07-15 10:08 | PRG ---
DATE OF SERVICE: 07/15/2018 PRIMARY CARE PHYSICIAN: Dr. Hector Landaverde. SUBJECTIVE: The patient states that he is feeling well and complains of some cough with decreased shortness of breath. Denies pain. He states his appetite is good. No nausea or vomiting. OBJECTIVE: VITAL SIGNS: Temperature 98.6, pulse is 66, respirations 18, blood pressure 153/73. GENERAL: He is awake and alert. No acute distress. No conversational dyspnea. NECK: Supple. BACK: With increased thoracic kyphosis. HEART: Regular rate and rhythm. LUNGS: With scattered rhonchi. No wheezes. ABDOMEN: Soft. EXTREMITIES: No clubbing, cyanosis, or edema. No calf tenderness. LABORATORY DATA: White blood cell count 8600, hemoglobin and hematocrit are 8.8 and 27.8, platelets of 288. Accu-Cheks of 118, 246, and 98. Echocardiogram report from yesterday revealed normal ejection fraction. Left ventricular size is normal. Some evidence of diastolic dysfunction. ASSESSMENT AND PLAN: This is a 78-year-old gentleman with recurrent aspiration pneumonia, which seems to be improving; lower extremity cellulitis, which is improving. 1. Pneumonia. We will continue IV antibiotics. 2. Deconditioning. We will continue PT, OT, and speech therapy for recurrent aspiration pneumonias. 3. Dehydration is resolving. 4. Anemia. We will continue to follow. Some could be dilutional. 5. Chronic pain. Plan per Dr. Landaverde is for decreasing narcotic analgesia for his low back pain. 6. Chronic obstructive pulmonary disease, appears to be stable. We will continue therapies and appreciate Pulmonary following as well. Job ID: [id number]
--- NOTE | 2018-07-15 13:27 | PRG ---
DATE OF SERVICE: 07/15/2018 SUBJECTIVE: This morning, he is awake, alert, and responsive. He is still short of breath, coughing some yellow sputum. OBJECTIVE: VITAL SIGNS: His saturations are 97% on 2 L, respiratory rate 18, temperature 97, and blood pressure 169/82. CHEST: Decreased breath sounds without any wheezing. CARDIAC: Normal S1 and S2. No gallops. ABDOMEN: No masses. IMPRESSION: Chronic obstructive pulmonary disease exacerbation, bronchitis, tobacco abuse, bilateral pneumonia. PLAN: Continue antibiotics, neb treatments, steroids, and PT. Job ID: [id number]
[2018-07-15] MEDS: Lovastatin 20 MG TAB PO SCH (18:18)
[2018-07-15] MEDS: Aspirin 325 mg Enteric Coated Tablet PO SCH (21:10)
[2018-07-15] MEDS: Amlodipine 5 MG TAB PO SCH (21:10)
[2018-07-15] MEDS: Acetaminophen 325 MG TAB PO PRN (21:12)
[2018-07-15] MEDS: Aspirin 300 MG Suppository PR SCH (21:20)
--- NOTE | 2018-07-15 23:14 | EKG ---
Test Reason : Blood Pressure : / mmHG Vent. Rate : 071 BPM Atrial Rate : 071 BPM P-R Int : 194 ms QRS Dur : 100 ms QT Int : 428 ms P-R-T Axes : 022 -23 -14 degrees QTc Int : 465 ms Normal sinus rhythm Incomplete right bundle branch block T wave abnormality, consider anterior ischemia Prolonged QT New inversion in V3 Abnormal ECG Confirmed by RAFAEL DUDLEY, KATHERIN ([id number]), editor in chief newspaper ARIANA REYES ([id number]) on 07/15/2018 11:14:14 PM Referred By: Confirmed By:KATHERIN HALL MD
[2018-07-15] MEDS: cloNIDine 0.1 MG TAB PO PRN (23:38)
[2018-07-16] MEDS: cloNIDine 0.1 MG TAB PO PRN ×3 (03:35→20:37)
[2018-07-16 05:40] LABS: #Basophils 0.1 thou/uL (0.0-0.2); #Eosinphils 1.9 thou/uL (0.0-0.7); #Lymphocytes 1.4 thou/uL (1.20-3.40); #Monocytes 0.8 thou/uL (0.11-0.59); #Neutrophils 5.9 thou/uL (1.40-6.50); %Basophils 0.6 % (0.0-1.0); %Lymphocytes 13.6 % (21.0-51.0); %Monocytes 7.7 % (0.0-10.0); Hemoglobin 9.3 g/dL (14.0-18.0); Mean Corpuscular HGB CONC 33.2 g/dL (32.0-36.0); Mean Corpuscular Hemoglobin 30.4 pg (27.0-31.0); Mean Corpuscular Volume 91.4 fL (78.0-98.0); Mean Platelet Volume 7.1 fL (7.4-10.4); Platelet Count 229 thou/uL (130-400); RBC Distribution Width 12.7 % (11.5-14.5); Red Blood Cell (RBC) Count 3.05 mill/uL (4.70-6.10)
[2018-07-16] MEDS: Levothyroxine Sodium 75 MCG TAB PO SCH (05:42)
[2018-07-16] MEDS: HYDROcodone/Acetaminophen 7.5/325 mg Tablet PO SCH ×4 (05:42→23:19)
[2018-07-16 06:04] LABS: Anion Gap 11 mmol/L (10-20); BUN (Urea Nitrogen) 13 mg/dL (8.4-25.7); Calc. Creatinine Clearance 53 mL/min (70-130); Calcium 7.6 mg/dL (7.8-10.44); Carbon Dioxide 24 mmol/L (23-31); Chloride 107 mmol/L (98-107); Estimated GFR-MDRD 66; Glucose 119 mg/dL (83-110); Iron 29 ug/dL (65-175); Sodium 138 mmol/L (136-145)
[2018-07-16] MEDS: Pregabalin 75 MG CAP PO SCH ×2 (09:05→20:37)
[2018-07-16] MEDS: Nicotine 14 MG PATCH TD SCH (09:05)
[2018-07-16] MEDS: Cefepime 1 GM in Sodium Chloride 0.9% 100 ML IVPB SCH ×2 (09:05→20:39)
[2018-07-16] MEDS: Pantoprazole 40 MG VIAL IVP SCH (09:06)
--- NOTE | 2018-07-16 09:31 | PRG ---
DATE OF SERVICE: 07/16/2018 PRIMARY CARE PHYSICIAN: Hector Landaverde MD SUBJECTIVE: The patient states that he is feeling better, continues to have cough. He tolerated physical therapy and ambulated in the room yesterday, sitting in the bedside chair, he did not have any problems with, continues to have his chronic pain. He complains about decreasing his narcotic dosage. OBJECTIVE: VITAL SIGNS: Temperature is 98.9, pulse is 62, respirations 12, blood pressure 146/84, and pulse ox 98% on 2 L. GENERAL: He is awake and alert, no acute distress. Speech is clear. NECK: Supple. BACK: With increased thoracic kyphosis. HEART: Regular rate and rhythm. LUNGS: Scattered rhonchi. Occasional expiratory wheezes. ABDOMEN: Soft. EXTREMITIES: No edema. LABORATORY DATA: Accu-Cheks 147, 195, 185, 166. Sodium 138, potassium 4.0, chloride 107, CO2 of 24, BUN and creatinine 13 and 1.08 with GFR of 66. White blood cell count 10.0, hemoglobin and hematocrit 9.3 and 27.9, and platelets of 229. ASSESSMENT AND PLAN: This is a 78-year-old gentleman, admitted with chronic obstructive pulmonary disease exacerbation, aspiration pneumonia, respiratory distress, now appears to be recovering well. 1. Pneumonia. We will continue IV antibiotics per Pulmonary. 2. Deconditioning. Continue therapy. 3. Anemia, improving, likely anemia of chronic disease. 4. Chronic pain. We will continue to attempt to decrease narcotic analgesia to improve his breathing state and avoid aspiration pneumonia. 5. Chronic obstructive pulmonary disease. Continue therapies. Job ID: [id number]
--- NOTE | 2018-07-16 12:23 | PRG ---
DATE OF SERVICE: 07/16/2018 SUBJECTIVE: This morning, he said he is feeling better, he is less short of breath, less cough. OBJECTIVE: VITAL SIGNS: Temperature 99, saturations 100% on 2 L, blood pressure 145/66, respiratory rate 18. CHEST: Decreased breath sounds. No wheezing. CARDIAC: Normal S1, S2. No gallops. ABDOMEN: No masses. LABORATORY DATA: His white count is 10,000. IMPRESSION: Bilateral pneumonia, right greater than left, improved. Still has low-grade fever. All cultures negative. PLAN: Continue antibiotics, Levaquin, Maxipime, and steroids. Supportive care. Job ID: [id number]
[2018-07-16] MEDS: Lovastatin 20 MG TAB PO SCH (16:55)
[2018-07-16] MEDS: Acetaminophen 325 MG TAB PO PRN (16:55)
[2018-07-16] MEDS: Aspirin 300 MG Suppository PR SCH (20:26)
[2018-07-16] MEDS: Aspirin 325 mg Enteric Coated Tablet PO SCH (20:37)
[2018-07-16] MEDS: Amlodipine 5 MG TAB PO SCH (20:38)
[2018-07-17] MEDS: cloNIDine 0.1 MG TAB PO PRN (00:33)
[2018-07-17] MEDS ORDERED: hydrALAZINE 20 MG/ML VIAL SLOW IVP SCH (03:45)
[2018-07-17] MEDS: HYDROcodone/Acetaminophen 7.5/325 mg Tablet PO SCH ×4 (05:23→23:55)
[2018-07-17] MEDS: Levothyroxine Sodium 75 MCG TAB PO SCH (05:24)
[2018-07-17 05:51] LABS: #Basophils 0.1 thou/uL (0.0-0.2); #Eosinphils 2.1 thou/uL (0.0-0.7); #Lymphocytes 1.4 thou/uL (1.20-3.40); #Monocytes 0.8 thou/uL (0.11-0.59); #Neutrophils 6.2 thou/uL (1.40-6.50); %Basophils 0.9 % (0.0-1.0); %Eosinophils 20.1 % (0.0-10.0); %Lymphocytes 12.9 % (21.0-51.0); %Monocytes 7.1 % (0.0-10.0); Hemoglobin 9.3 g/dL (14.0-18.0); Mean Corpuscular HGB CONC 32.5 g/dL (32.0-36.0); Mean Corpuscular Hemoglobin 29.6 pg (27.0-31.0); Mean Corpuscular Volume 90.8 fL (78.0-98.0); Mean Platelet Volume 7.3 fL (7.4-10.4); Platelet Count 228 thou/uL (130-400); RBC Distribution Width 12.8 % (11.5-14.5); Red Blood Cell (RBC) Count 3.16 mill/uL (4.70-6.10); White Blood Cell (WBC) Count 10.6 thou/uL (4.8-10.8)
[2018-07-17 06:01] LABS: Anion Gap 11 mmol/L (10-20); BUN (Urea Nitrogen) 16 mg/dL (8.4-25.7); Calc. Creatinine Clearance 62 mL/min (70-130); Calcium 7.5 mg/dL (7.8-10.44); Carbon Dioxide 27 mmol/L (23-31); Chloride 105 mmol/L (98-107); Estimated GFR-MDRD 77; Glucose 119 mg/dL (83-110); Potassium 3.9 mmol/L (3.5-5.1); Sodium 139 mmol/L (136-145)
--- NOTE | 2018-07-17 07:38 | PRG ---
DATE OF SERVICE: 07/17/2018 SUBJECTIVE: The patient with still prominent cough. Yesterday, he experienced some high blood pressures and hydralazine was initiated. Other than that, he is doing well. OBJECTIVE: VITAL SIGNS: Temperature 98.8, pulse 62, respirations 16, temperature 97, and blood pressure 190/88. HEART: Regular rate and rhythm. LUNGS: Left-sided rhonchi. ABDOMEN: Soft. LABORATORY DATA: White count 10.6, hemoglobin and hematocrit of 9.3 and 28.7. Electrolytes normal. Creatinine 0.95, BUN 16, and blood sugar 119 and 123. ASSESSMENT: 1. Aspiration pneumonia, stable. 2. Acute on chronic respiratory failure with hypoxia. 3. Lower extremity cellulitis, resolved. Discover this morning, the patient soaks his feet in hot water, which may be responsible for his redness. I informed him to stop doing this. 4. Elevated troponin secondary to demand ischemia. 5. Deconditioning. 6. Dehydration, resolved. 7. Sacral ulcer, receiving wound care. 8. Chronic obstructive pulmonary disease exacerbation, stable. 9. Chronic low back pain. PLAN: 1. Continue with Physical Therapy. 2. Hydralazine to be started on a regular basis today. Hopefully, this will bring his blood pressure to normal. 3. Discharge planning. 4. Continue present antibiotics. 5. Repeat chest x-ray. Job ID: [id number]
[2018-07-17] MEDS: Nicotine 14 MG PATCH TD SCH (09:14)
[2018-07-17] MEDS: Cefepime 1 GM in Sodium Chloride 0.9% 100 ML IVPB SCH (09:14)
[2018-07-17] MEDS: hydrALAZINE 25 MG TAB PO SCH ×3 (09:15→20:16)
[2018-07-17] MEDS: Pantoprazole 40 MG VIAL IVP SCH (09:16)
[2018-07-17] MEDS: Pregabalin 75 MG CAP PO SCH ×2 (09:16→20:17)
--- NOTE | 2018-07-17 09:27 | RAD ---
FRONTAL AND LATERAL IMAGING OF THE CHEST: DATE: 07/17/2018. COMPARISON: 07/12/2018. HISTORY: Reevaluate chest, history of pneumonia. FINDINGS: Right-sided vascular catheter present, distal tip overlying the cavoatrial junction. There is increa sed linear interstitial density with pulmonary hyperinflation suggesting underlying COPD. There is i mproved aeration in the medial right lung base when compared to the prior exam. There is blunting of the right costophrenic angle suggesting small volume right pleural effusion. There is dense opacity in the medial left base with air bronchogram formation suggesting partial consolidation/collapse of the left lower lobe, slightly worsened. There is a small pleural effusion on the left which has enla rged since the prior exam. Midline sternotomy wires and mediastinal clips are present. IMPRESSION: Worsening aeration in the left base with increasing left basilar parenchymal opacity and enlarging le ft pleural effusion. Small right pleural effusion. Findings may be related to infectious pneumoniti s/aspiration in the left lung base and/or pulmonary edema. POS: OFF
--- NOTE | 2018-07-17 09:56 | PRG ---
DATE OF SERVICE: 07/17/2018 SUBJECTIVE: He feels much better. He has no complaints. OBJECTIVE: VITAL SIGNS: Temperature 98.4, pulse 66, blood pressure 106/56, O2 saturation 98%. HEENT: Unremarkable. NECK: JVD. CHEST: Clear without wheezing or rhonchi. CARDIAC: S1, S2. Regular. ABDOMEN: Soft. EXTREMITIES: No edema. LABORATORY DATA: White blood cell count 10.6, hematocrit 28.7, and platelet count 228. Sodium 138, potassium 3.9, BUN 16, creatinine 0.9, glucose 119. ASSESSMENT: 1. Pneumonitis - better. 2. Tobacco abuse. PLAN: 1. Can probably change him over to oral antibiotic medication. 2. Stop daily labs. 3. Increase activity with hopeful discharge in the next 24 to 48 hours. Job ID: [id number]
[2018-07-17] MEDS: Lovastatin 20 MG TAB PO SCH (17:04)
[2018-07-17] MEDS: Aspirin 325 mg Enteric Coated Tablet PO SCH (20:16)
[2018-07-17] MEDS: Amlodipine 5 MG TAB PO SCH (20:16)
[2018-07-17] MEDS: Aspirin 300 MG Suppository PR SCH (20:19)
[2018-07-18] MEDS: Levothyroxine Sodium 75 MCG TAB PO SCH (05:46)
[2018-07-18] MEDS: HYDROcodone/Acetaminophen 7.5/325 mg Tablet PO SCH ×3 (05:46→17:23)
[2018-07-18] MEDS: Pantoprazole 40 MG VIAL IVP SCH (08:47)
[2018-07-18] MEDS: hydrALAZINE 25 MG TAB PO SCH ×3 (08:49→20:57)
[2018-07-18] MEDS: Cefdinir 300 MG CAP PO SCH (08:49)
[2018-07-18] MEDS: Pregabalin 75 MG CAP PO SCH ×2 (08:50→20:57)
[2018-07-18] MEDS: Nicotine 14 MG PATCH TD SCH (08:53)
--- NOTE | 2018-07-18 11:42 | PQF ---
CLINICAL DOCUMENTATION IMPROVEMENT CLARIFICATION FORM: ICD-10 Updated PLEASE DO AN ADDENDUM TO THE PROGRESS NOTE WITH ANY DOCUMENTATION UPDATES OR ADDITIONS AND CARRY THROUGH TO DC SUMMARY. THANK YOU. DATE: 07/18/18 ATTN: Dr. Landaverde Please exercise your independent, professional judgment in responding to the clarification form. Clinical indicators are provided on the bottom of this form for your review Please check appropriate box(s): [ ] Acute Renal Failure (ARF) / Acute Kidney Injury (CK) [ ] Acute on Chronic Renal Failure please specify Stage of CKD (see below) [ ] Other diagnosis [ ] Unable to determine In addition, please specify: Present on Admission (POA): [ ] Yes [ ] No [ ] Unable to determine For continuity of documentation, please document condition throughout progress notes and discharge summary. Thank You. CLINICAL INDICATORS - SIGNS / SYMPTOMS / LABS ER Record 07/13: Acute renal Insufficiency H&P 07/13: creatinine 2.59 which is elevated from previous admissions He has acute renal injury with elevated creatinine Cardiology Consult 07/13: Creatinine 2.2 Renal insufficiency PN 07/17: Creatinine 0.95 RISKS: H&P 07/13: Hx of hypertension, diabetes. PN 07/13: Aspiration pneumonia. Deconditioning. Dehydration. COPD exac. TREATMENT: Order 07/13-07/14: Normal Saline IV 100 mls/hr National Kidney Foundation Guidelines for CKD Staging Stage I Kidney damage with normal or increased GFR GFR > 90 Stage II Kidney damage with mildly decreased GFR GFR 60-89 Stage III Kidney damage with moderately decreased GFR GFR 30-59 Stage IV Kidney damage with severely decreased GFR GFR 16-29 Stage V Kidney failure GFR< 15 ESRD End Stage Renal Disease On dialysis Acute Renal Failure/Acute Kidney Failure defined as: Increases in SCr by (>) 0.3 mg/dl within 48 hours OR- Increases in SCr by (>) 1.5 times baseline, known or presumed to have occurred within the prior 7 days OR- Urine volume < 0.5 ml/kg/hour for 6 hours (KDIGO supplement 2012 for RIFLE/LEAH criteria) Thank you, Beena (This form is maintained as a part of the permanent medical record) 2014 [employer] All Rights Reserved Beena Dickinson RN, BSN [email or web address] Office: [phone] [facility] CENTERJavad
--- NOTE | 2018-07-18 11:57 | PRG ---
DATE OF SERVICE: 07/18/2018 SUBJECTIVE: The patient looks great this morning. He is sitting up in a chair, work on his computer. He is anxious to go home. Antibiotics were changed to p.o. OBJECTIVE: VITAL SIGNS: Temperature 98.3, pulse 61, respirations 18, pulse ox 93 on room air, and blood pressure 151/78. HEART: Regular rate and rhythm. LUNGS: Relatively clear. ABDOMEN: Soft. LABORATORY DATA: Blood sugar 206 and 112. ASSESSMENT: 1. Aspiration pneumonia, stable. 2. Acute on chronic respiratory failure with hypoxia. 3. Lower extremity erythema secondary to hot soaks by the patient. Unfortunately, he is not doing this. 4. Elevated troponin secondary to demand ischemia. 5. Deconditioning, undergoing physical therapy. 6. Dehydration, resolved. 7. Sacral ulcer, improving. 8. Chronic obstructive pulmonary disease exacerbation. 9. Chronic low back pain. PLAN: 1. Mainly, short talk with the patient is about going home and being healthy and not returning to the hospital. He is well aware that he needs to drink and eat sitting up and not in bed. He is well aware that he aspirates. His swallowing mechanism does not work fully. 2. Continue present medications. 3. We will talk with family about discharging the patient home possibly today or tomorrow. Family is hesitant for him to come home. We will discuss. 4. Chest x-ray shows slightly enlarging left pleural effusion. However, the chest x-ray overall looks much improved from his initial. Job ID: [id number]
--- NOTE | 2018-07-18 12:38 | PRG ---
DATE OF SERVICE: 07/18/2018 SUBJECTIVE: Mr. Goss states he is feeling better, had no complaints. OBJECTIVE: VITAL SIGNS: Temperature 98.8, pulse 71, respirations 16, O2 saturation 95% on room air, and blood pressure 154/73. HEENT: Unremarkable. NECK: No JVD. CHEST: Clear without wheezing or rhonchi. CARDIAC: S1 and S2, regular. ABDOMEN: Soft. EXTREMITIES: No edema. LABORATORY DATA: No labs were obtained today. ASSESSMENT: 1. Chronic obstructive pulmonary disease with exacerbation, which is improved. 2. Pneumonia, better. 3. Tobacco abuse. PLAN: The patient looks reasonable for discharge. I would finish out a total of 14 days of antibiotics between hospital and home. He has been told not to smoke. Job ID: [id number]
[2018-07-18] MEDS: Lovastatin 20 MG TAB PO SCH (17:23)
[2018-07-18] MEDS: Amlodipine 5 MG TAB PO SCH (20:56)
[2018-07-18] MEDS: Aspirin 325 mg Enteric Coated Tablet PO SCH (20:56)
[2018-07-18] MEDS: Aspirin 300 MG Suppository PR SCH (20:56)
[2018-07-19] MEDS: HYDROcodone/Acetaminophen 7.5/325 mg Tablet PO SCH ×3 (00:29→11:15)
[2018-07-19] MEDS: Levothyroxine Sodium 75 MCG TAB PO SCH (05:24)
[2018-07-19] MEDS: Nicotine 14 MG PATCH TD SCH (08:31)
[2018-07-19] MEDS: hydrALAZINE 25 MG TAB PO SCH (08:32)
[2018-07-19] MEDS: Cefdinir 300 MG CAP PO SCH (08:32)
[2018-07-19] MEDS: Pantoprazole 40 MG VIAL IVP SCH (08:32)
[2018-07-19] MEDS: Pregabalin 75 MG CAP PO SCH (08:33)
[2018-07-19 11:15] VITALS: BP 158/70; TEMP 98.1
--- NOTE | 2018-07-20 03:27 | DIS ---
DATE OF ADMISSION: 07/13/2018 DATE OF DISCHARGE: 07/19/2018 DISCHARGE DIAGNOSES: 1. Aspiration pneumonia. 2. Acute on chronic respiratory failure with hypoxia. 3. Lower extremity erythema secondary to hot soaks. 4. Elevated troponin secondary to demand ischemia. 5. Acute on chronic renal failure. 6. Deconditioning. 7. Dehydration. 8. Sacral ulcer. 9. Chronic obstructive pulmonary disease exacerbation. 10. Chronic low back pain. 11. Tobacco abuse. DISCHARGE MEDICATIONS: 1. Cefdinir 600 daily #14. 2. Aspirin 325 daily. 3. Norvasc 5 daily. 4. Williams 7.5 q.i.d. 5. Levothroid 75 daily. 6. Losartan/hydrochlorothiazide 50/12.5 daily. 7. Lovastatin 20 daily. 8. Lyrica 150 b.i.d. 9. Zoloft 100. 10. DuoNeb q.4 p.r.n. 11. Metformin 1000 b.i.d. BRIEF HISTORY: This is a 78-year-old white male recently hospitalized with bronchial pneumonia, secondary to aspiration. He has failed multiple speech swallow test, however, he desires to continue to eat. Recently his somewhat lethargic with oxygen saturations 60% with a heart rate around 100. He had not been on his oxygen. He was brought to the emergency room and was placed on oxygen, and has done better. HOSPITAL COURSE: CT scan of his chest did not reveal pulmonary embolus, but he did have bibasilar lung consolidation consistent with pneumonia. He also continues to smoke tobacco. The patient was placed on IV antibiotics, cefepime, and Levaquin. He has done very well. Blood pressures were somewhat elevated and his home blood pressure medications were restarted. His blood pressure over the past 2 days have been well controlled. The patient has done remarkably well. He is active and alert. He has been sitting up and working on his computer. He is well aware that he needs to quit tobacco. He has also been instructed not to eat or drink in bed. It is critical eat sitting up in a chair. He also remains a full code without chest compressions. He has agreed to a chemical code with intubation, but no chest compressions. Latest temp 99.3, pulse 65, respirations 16, pulse ox 96 on room air, blood pressure 142/66. Blood sugar 133, 220, and 110. White count 10.6, H and H are 9.3 and 28.7. Job ID: [id number]
== END 2018-07-19 12:25 | disposition home health service (06) | DRG 177 ==
LOC: ERS 19:34 → CCU 07-13 00:39 → 2NO 07-14 14:35
PROVIDERS: ADMIT Family Medicine; ATTEND Family Medicine
PROC: 3E033XZ Introduction of Vasopressor into Peripheral Vein, Percutaneous Approach (ICD-10-PCS; principal; 2018-07-13)
DX: J69.0 Pneumonitis due to inhalation of food and vomit (principal); J96.21 Acute and chronic respiratory failure with hypoxia; I24.8 Other forms of acute ischemic heart disease; J44.1 Chronic obstructive pulmonary disease with (acute) exacerbation; N17.9 Acute kidney failure, unspecified; L03.119 Cellulitis of unspecified part of limb; E78.5 Hyperlipidemia, unspecified; F17.210 Nicotine dependence, cigarettes, uncomplicated; G89.29 Other chronic pain; R91.8 Other nonspecific abnormal finding of lung field; I25.10 Atherosclerotic heart disease of native coronary artery without angina pectoris; E86.0 Dehydration; E11.22 Type 2 diabetes mellitus with diabetic chronic kidney disease; I12.9 Hypertensive chronic kidney disease with stage 1 through stage 4 chronic kidney disease, or unspecified chronic kidney disease; N18.9 Chronic kidney disease, unspecified; L98.499 Non-pressure chronic ulcer of skin of other sites with unspecified severity; D63.8 Anemia in other chronic diseases classified elsewhere; Z79.82 Long term (current) use of aspirin; I25.2 Old myocardial infarction; Z86.73 Personal history of transient ischemic attack (TIA), and cerebral infarction without residual deficits; Z90.49 Acquired absence of other specified parts of digestive tract; Z95.1 Presence of aortocoronary bypass graft; Z83.3 Family history of diabetes mellitus; Z80.9 Family history of malignant neoplasm, unspecified; Z82.49 Family history of ischemic heart disease and other diseases of the circulatory system
CPT/HCPCS: 36415; 36416; 36556; 71045; 71046; 71275; 80048; 80053; 82550; 82553; 82728; 83540; 83605; 83690; 83880; 84484; 85025; 85379; 87040; 93005; 93306; 94760; 96361; 96372; 96374; 96375; C9113; J0360; J0692; J1650; J1815; J1956; J7050

== ENCOUNTER 2018-09-23 13:45 | Inpatient (IN) | payer MEDICARE ==
[2018-09-23] MEDS ORDERED: Piperacillin/Tazobactam 4.5 GM VIAL ONE (14:34)
--- NOTE | 2018-09-23 14:45 | RAD ---
PORTABLE CHEST: DATE: 09/23/2018. PROVIDED CLINICAL HISTORY: Dyspnea. FINDINGS: Comparison 07/12/2018. Cardiac silhouette remains enlarged. Median sternotomy changes are seen. Reservations Sales Agent denise obstructive changes are redemonstrated. Parenchymal opacity at the right lung base appears simil ar. No evidence for pneumothorax. Interval removal of right IJ central catheter. IMPRESSION: 1. Cardiomegaly. 2. Stable parenchymal opacity at the medial right lung base which may reflect subsegmental atelectat ic change. POS: [facility]
[2018-09-23] MEDS ORDERED: Albuterol Sulfate 2.5 mg/0.5 ml Neb ONE (15:03)
[2018-09-23] MEDS ORDERED: Albuterol Sulfate 2.5 mg/3 ml Neb ONE (15:03)
[2018-09-23 15:05] LABS: #Eosinphils 0.1 thou/uL (0.0-0.7); #Lymphocytes 1.2 thou/uL (1.20-3.40); #Monocytes 0.7 thou/uL (0.11-0.59); #Neutrophils 9.5 thou/uL (1.40-6.50); %Basophils 0.3 % (0.0-1.0); %Eosinophils 1.3 % (0.0-10.0); %Lymphocytes 10.1 % (21.0-51.0); %Neutrophils 82.3 % (42.0-75.0); Hemoglobin 10.7 g/dL (14.0-18.0); Mean Corpuscular HGB CONC 30.8 g/dL (32.0-36.0); Mean Corpuscular Hemoglobin 28.4 pg (27.0-31.0); Mean Corpuscular Volume 92.3 fL (78.0-98.0); Mean Platelet Volume 8.3 fL (7.4-10.4); Platelet Count 151 thou/uL (130-400); RBC Distribution Width 13.6 % (11.5-14.5); Red Blood Cell (RBC) Count 3.75 mill/uL (4.70-6.10); White Blood Cell (WBC) Count 11.5 thou/uL (4.8-10.8)
[2018-09-23 15:18] LABS: Actual Bicarbonate (HCO3a) 30.6 mEq/L (22-28); Analyzer IN Cardio ER; Base Excess (BEa) 4.1 mEq/L (-2.0 to +3.0); CO2 Tension 55.4 mmHg (35.0-45.0); Calcium, Ionized 1.03 mmol/L (1.12-1.30); Carboxyhemoglobin (COHb) 4.6 gm% (0.0-3.0); Hemoglobin (Hb) 11.2 g/dL (14.0-18.0); O2 Tension (PaO2) 72.6 mmHg (> 70.0); Potassium - ABG Lab 3.83 mmol/L (3.70-5.30); pH, Arterial 7.36 (7.35-7.45)
[2018-09-23 15:19] LABS: ALT (SGPT) Less than 7 U/L (8-55); AST (SGOT) 13 U/L (5-34); Albumin 3.7 g/dL (3.4-4.8); Alkaline Phosphatase 38 U/L (40-150); Anion Gap 16 mmol/L (10-20); BUN (Urea Nitrogen) 17 mg/dL (8.4-25.7); Bilirubin, Total 0.3 mg/dL (0.2-1.2); CK (CPK) 96 U/L (30-200); Calc. Creatinine Clearance 0 mL/min (70-130); Calcium 8.3 mg/dL (7.8-10.44); Carbon Dioxide 27 mmol/L (23-31); Chloride 101 mmol/L (98-107); Estimated GFR-MDRD 60; Globulin 2.9 g/dL (2.4-3.5); Glucose 105 mg/dL (83-110); Lipase 11 U/L (8-78); Potassium 4.1 mmol/L (3.5-5.1); Protein, Total 6.6 g/dL (5.8-8.1); Sodium 140 mmol/L (136-145)
[2018-09-23 15:24] LABS: Puncture Site LBA
[2018-09-23] MEDS ORDERED: Sodium Chloride 0.9% 1,000 ML IV SCH (19:19)
[2018-09-23] MEDS ORDERED: Dextrose 50% Abboject 50 ML SYRINGE SLOW IVP PRN (20:42)
[2018-09-23] MEDS ORDERED: Senokot S 8.6-50 MG TAB PO PRN (20:42)
[2018-09-23] MEDS ORDERED: Acetaminophen 500 MG TAB PO PRN (20:42)
[2018-09-23] MEDS ORDERED: Ondansetron ODT 4 MG TAB PO PRN (20:42)
[2018-09-23] MEDS ORDERED: Ondansetron PF 4 MG/2 ML Vial IVP PRN (20:42)
[2018-09-23] MEDS ORDERED: Diabetic Tussin 200 MG/10 ML UDCUP PO PRN (20:42)
[2018-09-23] MEDS ORDERED: Calcium Carbonate 500 MG ChewTAB PO PRN (20:42)
[2018-09-23] MEDS ORDERED: Dextrose 5% in Water 1,000 ML IV PRN (20:42)
[2018-09-23] MEDS ORDERED: Zolpidem Tartrate 5 MG TAB PO PRN (20:42)
[2018-09-23] MEDS ORDERED: Benzonatate 100 MG CAP PO PRN (20:42)
[2018-09-23] MEDS ORDERED: Amlodipine 5 MG TAB PO PRN (21:00)
[2018-09-23] MEDS: Pregabalin 50 MG CAP PO SCH (21:42)
[2018-09-23] MEDS: HYDROcodone/Acetaminophen 10/325 mg Tablet PO SCH (21:43)
[2018-09-23] MEDS: Aspirin 325 mg Enteric Coated Tablet PO SCH (21:44)
[2018-09-23] MEDS: Simvastatin 5 MG TAB PO SCH (21:44)
[2018-09-23 21:51] VITALS: BMI 21.9
[2018-09-23] MEDS ORDERED: Piperacillin/Tazobactam 3.375 GM in Sodium Chloride 0.9% 100 ML IVPB SCH (22:00)
[2018-09-23] MEDS: Piperacillin/Tazobactam 3.375 GM in Sodium Chloride 0.9% 100 ML IVPB SCH (23:56)
[2018-09-24] MEDS: cloNIDine 0.1 MG TAB PO PRN ×2 (02:41→12:02)
[2018-09-24] MEDS: Vancomycin HCl 1 GM in Premix Bag 1 BAG IVPB SCH ×2 (02:41→14:24)
[2018-09-24] MEDS ORDERED: Vancomycin HCl 1 GM in Premix Bag 1 BAG IVPB SCH (03:00)
[2018-09-24] MEDS: Levothyroxine Sodium 75 MCG TAB PO SCH (05:31)
[2018-09-24] MEDS: Piperacillin/Tazobactam 3.375 GM in Sodium Chloride 0.9% 100 ML IVPB SCH ×4 (05:31→23:04)
[2018-09-24] MEDS: HYDROcodone/Acetaminophen 10/325 mg Tablet PO SCH ×3 (05:32→21:59)
[2018-09-24 05:38] LABS: #Basophils 0.2 thou/uL (0.0-0.2); #Lymphocytes 0.2 thou/uL (1.20-3.40); #Monocytes 0.4 thou/uL (0.11-0.59); #Neutrophils 10.4 thou/uL (1.40-6.50); %Basophils 1.5 % (0.0-1.0); %Eosinophils 0.3 % (0.0-10.0); %Lymphocytes 1.5 % (21.0-51.0); %Monocytes 3.6 % (0.0-10.0); %Neutrophils 93.2 % (42.0-75.0); Hemoglobin 9.8 g/dL (14.0-18.0); Mean Corpuscular HGB CONC 31.6 g/dL (32.0-36.0); Mean Corpuscular Hemoglobin 28.7 pg (27.0-31.0); Mean Corpuscular Volume 90.8 fL (78.0-98.0); Mean Platelet Volume 8.9 fL (7.4-10.4); Platelet Count 128 thou/uL (130-400); RBC Distribution Width 13.6 % (11.5-14.5); Red Blood Cell (RBC) Count 3.39 mill/uL (4.70-6.10); White Blood Cell (WBC) Count 11.1 thou/uL (4.8-10.8)
[2018-09-24 06:02] LABS: ALT (SGPT) Less than 7 U/L (8-55); AST (SGOT) 10 U/L (5-34); Albumin 3.4 g/dL (3.4-4.8); Alkaline Phosphatase 34 U/L (40-150); Anion Gap 13 mmol/L (10-20); BUN (Urea Nitrogen) 16 mg/dL (8.4-25.7); Bilirubin, Total 0.6 mg/dL (0.2-1.2); Calc. Creatinine Clearance 54 mL/min (70-130); Calcium 8.3 mg/dL (7.8-10.44); Carbon Dioxide 28 mmol/L (23-31); Chloride 100 mmol/L (98-107); Estimated GFR-MDRD 63; Globulin 2.9 g/dL (2.4-3.5); Glucose 154 mg/dL (83-110); Potassium 3.8 mmol/L (3.5-5.1); Protein, Total 6.3 g/dL (5.8-8.1); Sodium 137 mmol/L (136-145)
[2018-09-24 06:13] LABS: Thyroid Stimulating Hormone 0.4368 uIU/mL (0.35-4.94)
[2018-09-24] MEDS: Mometasone/Formoterol 120 PUFF INHALER INH SCH ×2 (07:16→18:30)
[2018-09-24] MEDS: Lisinopril 10 MG TAB PO SCH (09:04)
[2018-09-24] MEDS: Pregabalin 50 MG CAP PO SCH ×2 (09:05→19:56)
[2018-09-24] MEDS: Torsemide 10 MG TAB PO SCH (09:06)
[2018-09-24] MEDS: predniSONE 20 MG TAB PO SCH (09:06)
[2018-09-24] MEDS: HumaLOG 300 UNITS/3 ML VIAL SC PRN ×2 (11:55→17:39)
--- NOTE | 2018-09-24 12:45 | PRG ---
DATE OF SERVICE: 09/24/2018 HISTORY OF PRESENT ILLNESS: The patient states he ate breakfast well this morning, slept with nasal cannula, continues to have cough, no shortness of breath. At rest, he does have some wheeze occasionally. Does feel he has better breathing after breathing treatments. Has no acute complaints this morning. Nursing staff did have to give the patient p.r.n. clonidine for systolic blood pressures. Vital signs this morning; temperature of 98.9, pulse of 68, respiratory rate of 17, oxygen saturation 96% on 2 L nasal cannula, and blood pressure 153/66. The patient did have fever of 102.3 at 0400 hours this morning, treated with Tylenol. White blood cell count of 11.1, hemoglobin of 9.8, platelet count of 128, neutrophil percent of 93. Sodium of 138, potassium of 3.8, CO2 of 28, creatinine of 1.1, glucose of 154, TSH of 0.4, free T3 of 1.7. Blood cultures today currently negative. Repeat chest x-ray read pending. Continues to have some element of atelectasis and infiltrate in lower lobe. PHYSICAL EXAMINATION: GENERAL: The patient is arousable, in no acute distress. HEENT: Head is normocephalic and atraumatic. Extraocular movements are intact. Nasal cannula in place. Oral mucosa is moist. NECK: Supple. HEART: Regular rate and rhythm at the time of exam. LUNGS: End-expiratory wheezes in upper lung rodríguez. Lower lung rodríguez with coarse breath sounds bilaterally. ABDOMEN: Soft, nontender. Positive bowel sounds throughout. EXTREMITIES: Lower extremities without cyanosis or edema. NEUROLOGIC: The patient is oriented x3. No focal deficits. Speech is normal. ASSESSMENT AND PLAN: Healthcare-associated pneumonia, chronic obstructive pulmonary disease exacerbation, decubitus ulcer, presence of ostomy, normocytic anemia, acute respiratory failure. The patient is continued on antibiotics. If fever free over the next 24 hours, could likely be deescalated from vancomycin and Zosyn. Continuing on Levaquin orally at this point in time for likely transition agent. Therapy Services recommending return home at this point in time. The patient's desire, he wishes of stable to return home. He does have oxygen already at home. Would be interested in nebulized breathing treatments and/or improved respiratory regimen at discharge regarding a COPD. Job ID: [id number]
--- NOTE | 2018-09-24 13:01 | RAD ---
TWO VIEWS CHEST: DATE: 09/24/2018. PROVIDED CLINICAL HISTORY: Pneumonia. FINDINGS: Comparison 09/23/2018. Cardiac silhouette remains enlarged. Median sternotomy changes are again seen . Left basilar parenchymal opacity with left pleural fluid noted. Right lung appears clear. No surinder dence for pneumothorax. IMPRESSION: Left basilar pleural parenchymal opacity. POS: [facility]
--- NOTE | 2018-09-24 13:17 | CON ---
DATE OF CONSULTATION: 09/24/2018 CONSULTING PHYSICIAN: Dr. Lofton. REASON FOR CONSULTATION: Pneumonia and COPD exacerbation. HISTORY OF PRESENT ILLNESS: Mr. Goss is a 78-year-old male, who is known to me from a previous hospitalization. He came in yesterday with increasing congestion and shortness of breath. Unfortunately, he has begun smoking again at home. He states he feels better, but is still very tired. PAST MEDICAL HISTORY: 1. Chronic obstructive pulmonary disease. 2. Diabetes mellitus type 2. 3. Hyperlipidemia. 4. Pneumonia. 5. Myocardial infarction. PAST SURGICAL HISTORY: 1. Back surgery. 2. Colectomy. 3. Cardiac catheterization. 4. Coronary artery bypass grafting surgery. 5. Renal artery stent. FAMILY MEDICAL HISTORY: Remarkable for diabetes mellitus, cancer, heart disease, and neurofibromatosis. SOCIAL HISTORY: Heavy smoker, has been most of his life. Drinks occasionally. 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 He likes to play the [employer]. REVIEW OF SYSTEMS: Remarkable for shortness of breath, cough, congestion. No fever, chills, nausea, vomiting, hematemesis, melena, hematochezia, hematuria, or dysuria. MEDICATIONS: Prior to admission, these were reviewed and are listed on the home medication portion in [place]. Of note, his pulmonary medications include DuoNeb. His current inpatient medication list was also reviewed. He is on DuoNeb, prednisone, Zosyn, and vancomycin. PHYSICAL EXAMINATION: VITAL SIGNS: Temperature is 99.2, pulse 81, respirations 16, O2 saturation 94% on 1.5 L, and blood pressure 180/77. GENERAL: He is awake, alert, conversant, in no distress. HEENT: Unremarkable. NECK: No lymphadenopathy, JVD, or bruits. CHEST: Shows some coarse breath sounds bilaterally. CARDIAC: S1 and S2 regular without audible murmur. ABDOMEN: Soft and nontender. EXTREMITIES: No clubbing, cyanosis, or edema. IMAGING: His chest x-ray shows chronic interstitial changes bilaterally. I do not see anything that looks like an acute infiltrate. ASSESSMENT: 1. Chronic obstructive pulmonary disease with exacerbation. 2. Acute hypoxic respiratory failure. 3. Possible concurrent pneumonia. 4. Tobacco abuse. PLAN: Agree with the plan for steroids, antibiotics, and nebulization therapy. I have increased the frequency of his nebulization therapy. His antibiotics can likely be consolidated tomorrow. He needs to quit smoking, but I doubt he will comply. The above encompassed 70 minutes time, of that time, greater than 50% with the patient and/or the patient's unit in the hospital. Job ID: [id number]
[2018-09-24] MEDS: Enoxaparin Sodium 40 MG/0.4 ML SYRINGE SC SCH (19:54)
[2018-09-24] MEDS: Simvastatin 5 MG TAB PO SCH (19:55)
[2018-09-24] MEDS: Aspirin 325 mg Enteric Coated Tablet PO SCH (19:55)
[2018-09-25 01:57] LABS: #Lymphocytes 0.3 thou/uL (1.20-3.40); #Monocytes 0.4 thou/uL (0.11-0.59); #Neutrophils 9.3 thou/uL (1.40-6.50); %Eosinophils 0.2 % (0.0-10.0); %Lymphocytes 3.3 % (21.0-51.0); %Monocytes 3.8 % (0.0-10.0); %Neutrophils 92.7 % (42.0-75.0); Hemoglobin 9.8 g/dL (14.0-18.0); Mean Corpuscular HGB CONC 31.4 g/dL (32.0-36.0); Mean Corpuscular Hemoglobin 28.9 pg (27.0-31.0); Mean Corpuscular Volume 92.1 fL (78.0-98.0); Mean Platelet Volume 8.3 fL (7.4-10.4); Platelet Count 122 thou/uL (130-400); RBC Distribution Width 13.7 % (11.5-14.5)
[2018-09-25 02:15] LABS: Vancomycin, Trough 19.2 ug/mL
[2018-09-25 02:23] LABS: Anion Gap 14 mmol/L (10-20); BUN (Urea Nitrogen) 24 mg/dL (8.4-25.7); Calc. Creatinine Clearance 41 mL/min (70-130); Calcium 8.9 mg/dL (7.8-10.44); Carbon Dioxide 28 mmol/L (23-31); Chloride 100 mmol/L (98-107); Estimated GFR-MDRD 45; Glucose 147 mg/dL (83-110); Potassium 3.6 mmol/L (3.5-5.1); Sodium 138 mmol/L (136-145)
[2018-09-25] MEDS: Vancomycin HCl 1 GM in Premix Bag 1 BAG IVPB SCH (03:30)
[2018-09-25] MEDS ORDERED: Vancomycin HCl 750 MG in Sodium Chloride 0.9% 250 ML 250 ML IVPB SCH (04:00)
[2018-09-25] MEDS: HYDROcodone/Acetaminophen 10/325 mg Tablet PO SCH ×3 (05:35→21:02)
[2018-09-25] MEDS: Levothyroxine Sodium 75 MCG TAB PO SCH (05:35)
[2018-09-25] MEDS: Piperacillin/Tazobactam 3.375 GM in Sodium Chloride 0.9% 100 ML IVPB SCH ×4 (05:41→23:42)
[2018-09-25] MEDS: Mometasone/Formoterol 120 PUFF INHALER INH SCH ×2 (06:38→18:34)
--- NOTE | 2018-09-25 08:40 | HP ---
PRIMARY CARE PHYSICIAN: Hector Landaverde MD CHIEF COMPLAINT: Unresponsiveness and altered mental status. HISTORY OF PRESENT ILLNESS: The patient was treated for pneumonia, less than 2 months ago, found to have a grade 1 diastolic dysfunction with preserved ejection fraction on echo. Went through rehab, returned home, has good family support. Family was checking in on the patient this afternoon and he was barely arousable, not making any sense. They have a medical background or able to listen to the lungs and sounded very junky. The patient has a cough and possible aspiration with eating food and was transported by EMS to the hospital, where the patient markedly improved with breathing treatments and oxygen therapy. The patient does his oxygen therapy p.r.n. 2 to 3 L nasal cannula at home, however, was not actually using at that point in time when he was taking his afternoon neb and does not have a nebulizer, does not have a long-acting beta agonist, long-acting antimucorinic_ or any of corticosteroid at home and has a history of emphysema. Otherwise, the patient has baseline ileostomy and has developed a decubitus ulcer. Prior to admission, exiting rehab, which home health nurses are working on currently. On review of past medical, social, and surgical history, hyperlipidemia, hypertension, diabetes, hypothyroidism, chronic neuropathy, history of TIA, and diastolic heart failure. The patient with prior back surgeries, colectomy, prior cardiac catheterization with coronary artery bypass graft, and right renal artery stent. SOCIAL HISTORY: Lives at home by himself, independent. Does have family support at home health as above. Has quit tobacco and drinks occasionally. MEDICATIONS: Includes; 1. Zoloft 100 mg. 2. Levothyroxine 75 mcg. 3. DuoNeb. The patient does not have a nebulizer at home. 4. Barry 10/325. 5. Aspirin 325 mg. 6. Norvasc 5 mg. 7. Torsemide 10 mg. 8. Lyrica 150 mg b.i.d. 9. Metformin 1000 mg daily. 10. Lovastatin 20 mg. 11. Lisinopril 10 mg. 12. Clonidine 0.1 mg p.r.n., systolic blood pressure greater than 165. REVIEW OF SYSTEMS: On formal review of systems, the patient reports current fatigue, positive fever to 101.4 earlier today, positive cough, positive shortness of breath and positive skin breakdown to buttock, and positive neuropathy at baseline of back and neck pain PHYSICAL EXAMINATION: GENERAL: The patient is alert and oriented, in no acute distress. VITAL SIGNS: In the emergency department, blood pressure 159/77, pulse 60, respiratory rate 24, and oxygen saturation 95% on 2 L nasal cannula. However, at bedside, the patient was on room air at 88% to 92%, talking comfortably, not short of breath. HEENT: Head is normocephalic and atraumatic. Extraocular movements are intact. Oral mucosa is moist. NECK: Supple. HEART: Slightly bradycardic, but regular rate. No murmurs auscultated. LUNGS: Coarse bronchial breath sounds bilaterally with end-expiratory wheeze with left lower lobe with active rhonchi. ABDOMEN: Ostomy intact. Positive bowel sounds. Soft and nontender. EXTREMITIES: Lower extremities with trace and nonpitting edema. No cyanosis. The patient is alert and oriented x3. No focal deficits. He wants to be a full code. IMAGING STUDIES: Chest x-ray showed left lower lobe atelectasis with possible pneumonia. LABORATORY RESULTS: White blood cell count of 11.5, neutrophil 82%, and hemoglobin of 10.7. ABG was pH of 7.36. Troponin x1 less than 0.01. BNP of 243. Sodium of 140, potassium of 4.1, and creatinine of 1.1. Lactic acid of 1.3. ASSESSMENT AND PLAN: Chronic obstructive pulmonary disease exacerbation with x- ray showing some atelectasis and possible pneumonia in the right lower lobe. will check free T4 tomorrow morning repeating chest x-ray. Continuing HCAP antibiotics given his recent hospitalization and rehab and the fact that the patient after several breathing treatments, is back on room airm would likely, deescalate IV antibiotics over the next 24 hours. If the patient remains stable, we will escalate chronic obstructive pulmonary disease coverage with Dulera, oral steroid scheduled and p.r.n. DuoNeb. Given history of dysphagia per family's report, we will get speech therapy to evaluate the patient and walking program to help walk the patient. Have wound care evaluate decubitus ulcer. No routine ostomy care per nursing. Accu- Cheks before meals and at bedtime, sliding scale insulin titration at 24 hours, likely will represent transition home with Home Health on oxygen in the next 1 to 2 days. Would benefit from I believe additional nebulizer machine at home and possible long-acting medications. Pulmonary consultation for further recommendations for discharge with lung medications will be welcome. Job ID: [id number] JERONIMO
[2018-09-25] MEDS: Lisinopril 10 MG TAB PO SCH (09:08)
[2018-09-25] MEDS: predniSONE 20 MG TAB PO SCH (09:08)
[2018-09-25] MEDS: Pregabalin 50 MG CAP PO SCH ×2 (09:09→19:51)
[2018-09-25] MEDS: Torsemide 10 MG TAB PO SCH (09:09)
--- NOTE | 2018-09-25 10:28 | PRG ---
DATE OF SERVICE: 09/25/2018 SUBJECTIVE: Mr. Goss is doing better. He had no acute complaints today. OBJECTIVE: VITAL SIGNS: Temperature 97.9, pulse 76, blood pressure 166/70, O2 saturation 94% on 1-1/2 liters. HEENT: Unremarkable. NECK: No JVD. CHEST: Clear without wheezing. ABDOMEN: Soft. Colostomy noted. EXTREMITIES: No edema. LABORATORY DATA: White blood cell count 10, hematocrit 31.3, and platelet count 122. Sodium 138, potassium 3.6, BUN 24, creatinine 1.5, and glucose 147. ASSESSMENT: Chronic obstructive pulmonary disease with exacerbation. PLAN: We will go ahead and discontinue the vancomycin. He will continue steroids nebulization treatments. He may be able to go home tomorrow if stable. Job ID: [id number]
--- NOTE | 2018-09-25 11:33 | PRG ---
DATE OF SERVICE: 09/25/2018 SUBJECTIVE: The patient is still with a prominent productive cough. Appears somewhat diaphoretic. OBJECTIVE: VITAL SIGNS: Temperature 98.0, pulse 70, respirations 14, pulse ox 95 on 2 L, and blood pressure 167/74. HEART: Regular rate and rhythm. LUNGS: With bibasilar rales, worse on the left. ABDOMEN: Soft. EXTREMITIES: With no edema. LABORATORY DATA: White count 10.0 and H and H 9.8 and 31.3. Sodium 138, potassium 3.6, creatinine 1.51, and blood sugar 147 and 139. ASSESSMENT: 1. Left lower lobe pneumonia. 2. Chronic obstructive pulmonary disease exacerbation. 3. Acute on chronic hypoxic respiratory failure. 4. Tobacco abuse. 5. Acute on chronic renal failure. 6. Deconditioning. 7. Dehydration. 8. Chronic low back pain. PLAN: 1. Repeat CBC and BMP in the a.m. 2. Continue IV Zosyn and p.o. Levaquin for now. 3. Continue neb treatments. 4. Full code without chest compression to include intubation, if necessary. Change to p.o. antibiotics in the next day or 2. Job ID: [id number]
--- NOTE | 2018-09-25 12:07 | PQF ---
CLINICAL DOCUMENTATION IMPROVEMENT CLARIFICATION FORM: ICD-10 Updated PLEASE DO AN ADDENDUM TO THE PROGRESS NOTE WITH ANY DOCUMENTATION UPDATES OR ADDITIONS AND CARRY THROUGH TO DC SUMMARY. THANK YOU. DATE: 09/25/18 ATTN: DR. GEE Please exercise your independent, professional judgment in responding to the clarification form. Clinical indicators are provided on the bottom of this form for your review Please check appropriate box(s) to clarify if the following diagnosis has been ruled in or ruled out: SEPSIS [ ] Ruled in diagnosis [ x] Continue to treat [ ] Resolved [ ] Ruled out diagnosis [ ] Other diagnosis [ ] Unable to determine In addition, please specify: Present on Admission (POA): [ x ] Yes [ ] No [ ] Unable to determine For continuity of documentation, please document condition throughout progress notes and discharge summary. Thank You. CLINICAL INDICATORS - SIGNS / SYMPTOMS / LABS ER NOTE: "SEPSIS" "MENTAL STATUS CHANGES" RR 28 TEMP 100.3 WBC 11.5 RISKS: PNEUMONIA COPD DECUBITUS ULCER TREATMENT: IV VANCOMYCIN (ER-09/24) IV LEVAQUIN (ER) IV ZOSYN (ER-PRESENT) IV FLUIDS (ER) BLOOD CULTURES CARDIAC MONITORING (This form is maintained as a part of the permanent medical record) 2014 [employer]. All Rights Reserved KIMBERLYN [email or web address] Office: [phone] [facility] HOSPITALJavad
[2018-09-25] MEDS: cloNIDine 0.1 MG TAB PO PRN ×3 (13:14→19:54)
[2018-09-25] MEDS: HumaLOG 300 UNITS/3 ML VIAL SC PRN (17:44)
[2018-09-25] MEDS: Simvastatin 5 MG TAB PO SCH (19:50)
[2018-09-25] MEDS: Aspirin 325 mg Enteric Coated Tablet PO SCH (19:51)
[2018-09-25] MEDS: Enoxaparin Sodium 40 MG/0.4 ML SYRINGE SC SCH (19:52)
[2018-09-25] MEDS ORDERED: Amlodipine 5 MG TAB PO SCH (21:00)
[2018-09-26] MEDS: cloNIDine 0.1 MG TAB PO PRN ×3 (04:22→16:18)
[2018-09-26] MEDS: Piperacillin/Tazobactam 3.375 GM in Sodium Chloride 0.9% 100 ML IVPB SCH (05:19)
[2018-09-26] MEDS: HYDROcodone/Acetaminophen 10/325 mg Tablet PO SCH ×3 (05:20→21:45)
[2018-09-26] MEDS: Levothyroxine Sodium 75 MCG TAB PO SCH (05:21)
[2018-09-26 05:42] LABS: #Lymphocytes 0.6 thou/uL (1.20-3.40); #Monocytes 0.6 thou/uL (0.11-0.59); #Neutrophils 8.1 thou/uL (1.40-6.50); %Eosinophils 0.3 % (0.0-10.0); %Lymphocytes 6.3 % (21.0-51.0); %Monocytes 6.6 % (0.0-10.0); %Neutrophils 86.9 % (42.0-75.0); Hemoglobin 9.9 g/dL (14.0-18.0); Mean Corpuscular Hemoglobin 29.1 pg (27.0-31.0); Mean Corpuscular Volume 90.9 fL (78.0-98.0); Mean Platelet Volume 8.5 fL (7.4-10.4); Platelet Count 137 thou/uL (130-400); RBC Distribution Width 13.9 % (11.5-14.5); Red Blood Cell (RBC) Count 3.38 mill/uL (4.70-6.10); White Blood Cell (WBC) Count 9.3 thou/uL (4.8-10.8)
[2018-09-26 05:57] LABS: Anion Gap 11 mmol/L (10-20); BUN (Urea Nitrogen) 23 mg/dL (8.4-25.7); Calc. Creatinine Clearance 45 mL/min (70-130); Carbon Dioxide 30 mmol/L (23-31); Chloride 101 mmol/L (98-107); Estimated GFR-MDRD 50; Glucose 123 mg/dL (83-110); Potassium 3.3 mmol/L (3.5-5.1); Sodium 139 mmol/L (136-145)
[2018-09-26] MEDS: Mometasone/Formoterol 120 PUFF INHALER INH SCH ×2 (06:22→18:27)
[2018-09-26] MEDS: Pregabalin 50 MG CAP PO SCH ×2 (08:39→19:33)
[2018-09-26] MEDS: Lisinopril 10 MG TAB PO SCH (08:39)
[2018-09-26] MEDS: predniSONE 20 MG TAB PO SCH (08:40)
[2018-09-26] MEDS: Torsemide 10 MG TAB PO SCH (08:40)
[2018-09-26] MEDS ORDERED: Potassium Chloride 20 MEQ TAB PO SCH (08:45)
[2018-09-26] MEDS ORDERED: Lisinopril 10 MG TAB PO SCH (08:45)
[2018-09-26] MEDS: cloNIDine 0.1 MG TAB PO SCH ×2 (09:38→19:35)
--- NOTE | 2018-09-26 10:07 | PRG ---
DATE OF SERVICE: 09/26/2018 SUBJECTIVE: The patient is feeling much better this morning. His cough has improved. OBJECTIVE: VITAL SIGNS: Blood pressure 152/71, pulse 71, respirations 16, and pulse ox 94% on 1.5 L nasal cannula. HEART: Regular rate and rhythm. LUNGS: Relatively clear. ABDOMEN: Soft. EXTREMITIES: No edema. LABORATORY DATA: Sodium 139, potassium 3.3, creatinine 1.37, blood sugar 123 and 131. White count 93, H and H are 9.9 and 30.8. ASSESSMENT: 1. Left lower lobe pneumonia, improving. 2. Chronic obstructive pulmonary disease exacerbation. 3. Acute on chronic hypoxic respiratory failure. 4. Tobacco abuse. 5. Acute on chronic renal failure. 6. Deconditioning. 7. Dehydration. 8. Chronic low back pain. 9. Hypertension. 10. Hyperlipidemia. PLAN: 1. Continue antibiotics. 2. Blood pressure quite elevated this morning. We will increase lisinopril to 20 q.a.m. and give clonidine 0.1 p.o. b.i.d. 3. The patient is desiring to go home possibly this afternoon. 4. The patient is a chemical and intubations code status. He does not want any chest compressions. 5. Continue neb treatments. Job ID: [id number]
--- NOTE | 2018-09-26 10:13 | PRG ---
DATE OF SERVICE: 09/26/2018 SUBJECTIVE: Mr. Goss is doing well. He has no complaints. He wants to go home. OBJECTIVE: VITAL SIGNS: Stable. HEENT: Unremarkable. NECK: No JVD. LUNGS: Clear without wheezing. CARDIAC: S1 and S2, regular. ABDOMEN: Soft. EXTREMITIES: No edema. ASSESSMENT: Chronic obstructive pulmonary disease with exacerbation. PLAN: I will convert him over to oral antibiotics. I would agree that he can be discharged tomorrow. Job ID: [id number]
[2018-09-26] MEDS: HumaLOG 300 UNITS/3 ML VIAL SC PRN ×2 (12:24→17:47)
[2018-09-26] MEDS ORDERED: Amlodipine 5 MG TAB PO SCH (12:30)
[2018-09-26] MEDS: Cefdinir 300 MG CAP PO SCH (12:32)
[2018-09-26] MEDS: Potassium Chloride 20 MEQ TAB PO SCH (16:18)
[2018-09-26] MEDS ORDERED: Nicotine 14 MG PATCH TOP SCH (18:00)
[2018-09-26] MEDS: Enoxaparin Sodium 40 MG/0.4 ML SYRINGE SC SCH (19:32)
[2018-09-26] MEDS: Simvastatin 5 MG TAB PO SCH (19:34)
[2018-09-26] MEDS: Amlodipine 5 MG TAB PO SCH (19:35)
[2018-09-26] MEDS: Aspirin 325 mg Enteric Coated Tablet PO SCH (19:36)
[2018-09-27 05:10] LABS: #Lymphocytes 0.8 thou/uL (1.20-3.40); #Monocytes 0.7 thou/uL (0.11-0.59); %Basophils 0.1 % (0.0-1.0); %Eosinophils 0.5 % (0.0-10.0); %Lymphocytes 10.7 % (21.0-51.0); %Monocytes 9.1 % (0.0-10.0); %Neutrophils 79.6 % (42.0-75.0); Hemoglobin 10.2 g/dL (14.0-18.0); Mean Corpuscular HGB CONC 31.6 g/dL (32.0-36.0); Mean Corpuscular Hemoglobin 28.8 pg (27.0-31.0); Mean Platelet Volume 8.5 fL (7.4-10.4); Platelet Count 154 thou/uL (130-400); RBC Distribution Width 13.7 % (11.5-14.5); Red Blood Cell (RBC) Count 3.56 mill/uL (4.70-6.10); White Blood Cell (WBC) Count 7.5 thou/uL (4.8-10.8)
[2018-09-27 05:14] LABS: Anion Gap 11 mmol/L (10-20); BUN (Urea Nitrogen) 24 mg/dL (8.4-25.7); Calc. Creatinine Clearance 46 mL/min (70-130); Calcium 9.4 mg/dL (7.8-10.44); Carbon Dioxide 32 mmol/L (23-31); Chloride 100 mmol/L (98-107); Estimated GFR-MDRD 52; Glucose 124 mg/dL (83-110); Potassium 3.3 mmol/L (3.5-5.1); Sodium 140 mmol/L (136-145)
[2018-09-27] MEDS: Levothyroxine Sodium 75 MCG TAB PO SCH (05:30)
[2018-09-27] MEDS: HYDROcodone/Acetaminophen 10/325 mg Tablet PO SCH ×2 (05:30→14:04)
[2018-09-27] MEDS: cloNIDine 0.1 MG TAB PO PRN (06:37)
[2018-09-27] MEDS: Mometasone/Formoterol 120 PUFF INHALER INH SCH (07:05)
[2018-09-27] MEDS: Pregabalin 50 MG CAP PO SCH (08:11)
[2018-09-27] MEDS: Potassium Chloride 20 MEQ TAB PO SCH (08:12)
[2018-09-27] MEDS: cloNIDine 0.1 MG TAB PO SCH (08:12)
[2018-09-27] MEDS: predniSONE 20 MG TAB PO SCH (08:13)
[2018-09-27] MEDS: Amlodipine 5 MG TAB PO SCH (08:13)
[2018-09-27] MEDS: Torsemide 10 MG TAB PO SCH (08:13)
[2018-09-27 08:19] VITALS: TEMP 97.9
[2018-09-27] MEDS ORDERED: Lisinopril 20 MG TAB PO SCH (09:00)
[2018-09-27] MEDS ORDERED: Lisinopril 10 MG TAB PO SCH (09:00)
--- NOTE | 2018-09-27 09:43 | PRG ---
DATE OF SERVICE: 09/27/2018 SUBJECTIVE: He is feeling well. Had no acute complaints. OBJECTIVE: VITAL SIGNS: Temperature 97.9, pulse 76, respirations 16, O2 saturations 96% on 1.5 L, and blood pressure 138/69. HEENT: Unremarkable. NECK: No adenopathy or JVD. CHEST: Clear to auscultation. CARDIAC: S1-S2 regular. ABDOMEN: Soft. EXTREMITIES: No edema. LABORATORY DATA: White blood cell count 7.5, hematocrit 32.4, and platelet count 154. Sodium 140, potassium 3.3, chloride 100, CO2 32, BUN 24, creatinine 1.3 and glucose 124. ASSESSMENT: 1. Chronic obstructive pulmonary disease with exacerbation. 2. Question of pneumonia. 3. Mild hypokalemia. PLAN: 1. The patient is probably stable enough to go home. Would finish out 7 days of antibiotics. 2. He has been cautioned not to smoke, although I doubt he will comply. Job ID: [id number]
[2018-09-27 10:33] VITALS: BP 175/74
--- NOTE | 2018-09-27 10:54 | DIS ---
DATE OF ADMISSION: 09/23/2018 DATE OF DISCHARGE: 09/27/2018 DISCHARGE DIAGNOSES: 1. Left lower lobe pneumonia, improving. 2. Chronic obstructive pulmonary disease exacerbation, improved. 3. Acute on chronic hypoxic respiratory failure. 4. Tobacco abuse. 5. Acute on chronic renal failure. 6. Deconditioning. 7. Dehydration. 8. Chronic low back pain. 9. Hypertension. 10. Hyperlipidemia. 11. Hypokalemia. DISCHARGE MEDICATIONS: 1. Amlodipine 5 b.i.d. 2. Aspirin 325 daily. 3. Cefdinir 300 b.i.d. #14. 4. Clonidine 0.1 p.o. b.i.d. 5. [place] p.r.n. 10-325. 6. Levothyroxine 75 daily. 7. Lisinopril 20 p.o. b.i.d. 8. Lovastatin 20 daily. 9. KCl 20 p.o. t.i.d. 10. Lyrica 150 p.o. b.i.d. 11. Sertraline 100 daily. 12. Torsemide 10 daily. 13. Metformin 1000 daily. BRIEF HISTORY: This is a 78-year-old white male with history of recurrent pneumonia and chronic aspiration with a failed barium swallow test, who presents with recurrent pneumonia. History of diastolic dysfunction. On the day of admission, the patient was barely arousable and not making any sense according to the family. His lungs sounded very junky according to the family. The patient has a persistent cough and has chronic aspiration. He was seen in the emergency room, where he was given breathing treatments and oxygen therapy and did well. He is on home oxygen as needed and uses neb treatments as he feels. HOSPITAL COURSE: The patient was placed on IV vancomycin and Zosyn. He has done well. He was given breathing treatments regularly. He has done well for the past several days. His blood pressure has been uncontrolled. However, he gets very agitated in the hospital. His antihypertensives were increased. His lisinopril has been increased to 20 b.i.d., amlodipine 5 b.i.d., and clonidine 0.1 p.o. b.i.d. The patient is strongly desiring to go home at this time. He does not want to stay another day. He might even do better at home. He will be discharged on the above medications and will follow up in the office next week. He will need a recheck of his potassium at that time. We will monitor the patient this morning and if blood pressure stabilizes, can possibly discharge by lunch. Job ID: [id number]
[2018-09-27] MEDS: HumaLOG 300 UNITS/3 ML VIAL SC PRN (12:16)
[2018-09-27] MEDS: Cefdinir 300 MG CAP PO SCH (12:19)
== END 2018-09-27 14:10 | disposition home health service (06) | DRG 871 ==
LOC: ERS 13:45 → 2NO 18:30
PROVIDERS: ADMIT Family Medicine; ATTEND Family Medicine
DX: A41.9 Sepsis, unspecified organism (principal); J18.9 Pneumonia, unspecified organism; J96.21 Acute and chronic respiratory failure with hypoxia; I50.30 Unspecified diastolic (congestive) heart failure; J44.0 Chronic obstructive pulmonary disease with (acute) lower respiratory infection; N17.9 Acute kidney failure, unspecified; I13.0 Hypertensive heart and chronic kidney disease with heart failure and stage 1 through stage 4 chronic kidney disease, or unspecified chronic kidney disease; J44.1 Chronic obstructive pulmonary disease with (acute) exacerbation; E78.5 Hyperlipidemia, unspecified; E03.9 Hypothyroidism, unspecified; E11.40 Type 2 diabetes mellitus with diabetic neuropathy, unspecified; D64.9 Anemia, unspecified; I25.2 Old myocardial infarction; F17.200 Nicotine dependence, unspecified, uncomplicated; N18.9 Chronic kidney disease, unspecified; E86.0 Dehydration; G89.29 Other chronic pain; M54.9 Dorsalgia, unspecified; F32.9 Major depressive disorder, single episode, unspecified; E87.6 Hypokalemia; Z87.01 Personal history of pneumonia (recurrent); Z79.82 Long term (current) use of aspirin; Z86.73 Personal history of transient ischemic attack (TIA), and cerebral infarction without residual deficits; Z79.891 Long term (current) use of opiate analgesic; Z95.1 Presence of aortocoronary bypass graft; Z79.84 Long term (current) use of oral hypoglycemic drugs; Z79.899 Other long term (current) drug therapy; Z79.51 Long term (current) use of inhaled steroids; Z79.52 Long term (current) use of systemic steroids
CPT/HCPCS: 36415; 36416; 71045; 71046; 80048; 80053; 80202; 82550; 82805; 83605; 83690; 83880; 84443; 84481; 84484; 85025; 87040; 87804; 93005; 94640; 94664; 96361; 96365; 96367; J1650; J1956; J2543; J3370; J7050; J7611; J7620

== ENCOUNTER 2019-01-04 22:52 | Inpatient (IN) | payer MEDICARE ==
[2019-01-04 23:32] LABS: #Basophils 0.1 thou/uL (0.0-0.2); #Eosinphils 0.4 thou/uL (0.0-0.7); #Lymphocytes 0.8 thou/uL (1.20-3.40); #Monocytes 0.8 thou/uL (0.11-0.59); %Basophils 0.6 % (0.0-1.0); %Lymphocytes 7.5 % (21.0-51.0); %Monocytes 8.2 % (0.0-10.0); %Neutrophils 79.8 % (42.0-75.0); Hemoglobin 10.5 g/dL (14.0-18.0); Mean Corpuscular Hemoglobin 28.4 pg (27.0-31.0); Mean Corpuscular Volume 83.4 fL (78.0-98.0); Mean Platelet Volume 6.7 fL (7.4-10.4); Platelet Count 146 thou/uL (130-400); RBC Distribution Width 16.1 % (11.5-14.5); Red Blood Cell (RBC) Count 3.72 mill/uL (4.70-6.10)
[2019-01-04 23:48] LABS: ALT (SGPT) 7 U/L (8-55); AST (SGOT) 12 U/L (5-34); Albumin 3.5 g/dL (3.4-4.8); Alkaline Phosphatase 40 U/L (40-150); Anion Gap 13 mmol/L (10-20); BUN (Urea Nitrogen) 28 mg/dL (8.4-25.7); Bilirubin, Total 0.3 mg/dL (0.2-1.2); Calc. Creatinine Clearance 0 mL/min (70-130); Calcium 8.7 mg/dL (7.8-10.44); Carbon Dioxide 25 mmol/L (23-31); Chloride 99 mmol/L (98-107); Estimated GFR-MDRD 55; Globulin 3.3 g/dL (2.4-3.5); Glucose 101 mg/dL (83-110); Potassium 4.3 mmol/L (3.5-5.1); Protein, Total 6.8 g/dL (5.8-8.1); Sodium 133 mmol/L (136-145)
[2019-01-04 23:59] LABS: Bilirubin Negative (Negative); Blood, Urine Trace (Negative); Clarity Slightly Cloudy (Clear); Glucose, Urine (Dipstick) Negative (Negative); Leukocyte Negative (Negative); Nitrite Negative (Negative); Protein, Urine (Dipstick) Negative (Neg-Trace); Urobilinogen 0.2 mg/dL (Less than 2)
[2019-01-05] MEDS ORDERED: Nicotine 21 MG PATCH ONE (00:23)
[2019-01-05] MEDS ORDERED: Acetaminophen 325 MG TAB ONE (00:29)
[2019-01-05 02:08] VITALS: BMI 22.0
[2019-01-05] MEDS ORDERED: Sodium Chloride 0.9% 1,000 ML IV SCH (02:45)
[2019-01-05] MEDS ORDERED: cefTRIAXone\\ROCEPHIN 1 GM in Sodium Chloride 0.9% 100 ML IVPB SCH (03:00)
[2019-01-05] MEDS ORDERED: Dextrose 50% Abboject 50 ML SYRINGE IVP PRN (03:55)
[2019-01-05] MEDS ORDERED: Dextrose 5% in Water 1,000 ML IV PRN (03:55)
[2019-01-05] MEDS ORDERED: HYDROcodone/Acetaminophen 7.5/325 mg Tablet PO SCH (04:00)
[2019-01-05] MEDS: Levothyroxine Sodium 75 MCG TAB PO SCH (04:05)
[2019-01-05] MEDS ORDERED: Ondansetron ODT 4 MG TAB PO PRN (07:53)
[2019-01-05] MEDS ORDERED: Ondansetron PF 4 MG/2 ML Vial IVP PRN (07:53)
[2019-01-05] MEDS ORDERED: Acetaminophen 325 MG TAB PO PRN (07:53)
[2019-01-05] MEDS ORDERED: cloNIDine 0.1 MG TAB PO PRN (07:58)
[2019-01-05] MEDS ORDERED: Lisinopril 20 MG TAB PO PRN (07:58)
[2019-01-05] MEDS ORDERED: metFORMIN 500 MG TAB PO SCH (08:00)
[2019-01-05] MEDS ORDERED: cefTRIAXone\\ROCEPHIN 2 GM in Sodium Chloride 0.9% 100 ML IVPB SCH (08:00)
[2019-01-05] MEDS: metFORMIN 500 MG TAB PO SCH ×2 (08:22→09:16)
[2019-01-05] MEDS ORDERED: Torsemide 10 MG TAB PO SCH (09:00)
[2019-01-05] MEDS ORDERED: Pregabalin 75 MG CAP PO SCH (09:00)
[2019-01-05] MEDS: Amlodipine 5 MG TAB PO SCH ×2 (09:17→20:45)
[2019-01-05] MEDS: Torsemide 10 MG TAB PO SCH (09:18)
[2019-01-05] MEDS: methylPREDNISolone Sod Succ 40 MG VIAL IVP SCH ×3 (09:19→20:44)
[2019-01-05] MEDS: Pregabalin 75 MG CAP PO SCH ×2 (09:19→20:44)
[2019-01-05] MEDS: HYDROcodone/Acetaminophen 7.5/325 mg Tablet PO SCH ×4 (11:04→17:34)
--- NOTE | 2019-01-05 12:06 | HP ---
PRIMARY CARE PHYSICIAN: Hector Landaverde MD Admitting physician will be Dr. Landaverde, Dr. Michael Irizarry, russel. HISTORY OF PRESENT ILLNESS: The patient is a 78-year-old male with a known history of COPD, who was brought to the emergency room last night by his family, noted in decreased oxygen saturations. He was being treated earlier this week by his primary care physician, Dr. Landaverde with oral antibiotics as well receiving Rocephin injections. He was seen in Urgent Care this morning. He was given a shot of Rocephin. fever of 100.1 as reported by the family. He has not noted any nausea or vomiting. He does still smoke two packs a day. He uses O2 at home, has been given multiple breathing treatments. The patient's family states he could not get his O2 saturation above 84%. There has been no chest pain. No shortness of breath otherwise, except for his COPD. He was brought to the emergency room, was found to have a temperature of 101.5 in the emergency room. He was seen and evaluated in the emergency room. No findings of acute infection could be identified. He was given IV antibiotics as well as multiple nebulization treatments, which did improve him some, but he has been placed here for admission. Otherwise, no other medical complaints today. ALLERGIES: HE HAS NO KNOWN ALLERGIES. CURRENT MEDICATIONS: 1. Sertraline 100 mg daily. 2. Lyrica 75 mg daily. 3. Metformin 1000 mg daily. 4. Aspirin 325 daily. 5. Levothyroxine 75 mcg daily. 6. Lasix 20 mg daily. 7. Lovastatin 20 mg daily. 8. Williamson 7.5/325 as needed for pain. 9. Isosorbide 30 mg daily. 10. Lisinopril 10 mg daily. PAST MEDICAL HISTORY: Significant for the above noted COPD, hypertension, hyperlipidemia, atherosclerotic coronary artery disease, TIAs, diabetic neuropathy, and fracture of right wrist. PAST SURGICAL HISTORY: Positive for ileostomy and total colectomy due to colon cancer. The patient has a history of coronary artery bypass graft, three back surgeries, total colectomy, and renal stent. SOCIAL/PERSONAL HISTORY: Still smokes two packs a day. Denies alcohol use. FAMILY HISTORY: Noncontributory. PHYSICAL EXAMINATION: VITAL SIGNS: Temperature 99.5, O2 saturations 94% on 2 L, and BP 140/65. GENERAL: He is alert and active, does not appear to be in any distress. HEENT: Unremarkable. NECK: Supple. Full range of motion. No masses. LUNGS: Bilateral coarse rhonchi with occasional wheezes. No rales are appreciated. HEART: Reveals a regular rate and rhythm. No murmurs, gallops, or rubs. ABDOMEN: Soft and nontender. Bowel sounds are present and active. No hepatosplenomegaly is noted. There is no evidence of rebound or guarding. EXTREMITIES: No clubbing, edema, or cyanosis. NEUROLOGIC: He is alert and oriented x3. Moves all extremities well. LABORATORY DATA: White blood count 10.0, hemoglobin 10.5, and hematocrit 31.0. Sodium 133, potassium 4.3, BUN 28, and creatinine 1.27. Urinalysis is clear. IMAGING DATA: Chest x-ray, there is hyperinflation with COPD. There is new right lower lobe nodule, not appreciated in previous films. IMPRESSION AND PLAN: 1. A 78-year-old male with re-exacerbation of chronic obstructive pulmonary disease, not responsive to outpatient medicines. 2. New pulmonary nodule. Plan, the patient will be admitted, placed on IV steroids and IV antibiotics. Pulmonary consult will be obtained in the morning for his chronic obstructive pulmonary disease to help evaluate his new pulmonary nodule. 3. History of atherosclerotic coronary artery disease. 4. Type 2 diabetes mellitus. We will continue other care on this patient and keep that. Job ID: [id number]
[2019-01-05] MEDS: cefTRIAXone\\ROCEPHIN 2 GM in Sodium Chloride 0.9% 100 ML IVPB SCH (14:35)
[2019-01-05] MEDS: Insulin Regular 300 UNITS/3 ML VIAL SC PRN ×2 (15:50→20:46)
[2019-01-05] MEDS ORDERED: Lovastatin 20 MG TAB PO SCH (17:00)
--- NOTE | 2019-01-05 19:44 | CON ---
DATE OF CONSULTATION: 01/05/2019 HISTORY OF PRESENT ILLNESS: Mr. Goss is a pleasant 78-year-old gentleman, who has been followed by Dr. Morris. I took care of his before she . He presented to the emergency room last night with increased shortness of breath and hypoxemia. He said he could not walk to the bathroom without running out of breath. He also had a low-grade temperature elevation at home. He has had a mild cough , but no purulent sputum or hemoptysis. He denies chest pain. He subsequently has been admitted and says he feels 100% better. He has an abnormal chest radiograph, which shows in part the reason for the consult. PAST MEDICAL HISTORY: Remarkable for: 1. Chronic obstructive pulmonary disease. 2. Hypertension. 3. Lipid disorder. 4. Atherosclerotic vascular disease. 5. History of multiple strokes. 6. History of swallowing dysfunction. He apparently has declined speech pathology in the past. 7. History of diabetic neuropathy. 8. History of rib fracture. 9. History of multiple bronchial infections and pneumonias this year. His daughter says he has had 6 pneumonias. 10. History of an ileostomy for colon cancer. 11. History of coronary artery bypass grafting. 12. History of multiple back surgeries. 13. History of colectomy for his colon cancer. 14. History of renal stenting. SOCIAL HISTORY: He is not a daily drinker. He is a heavy smoker, up to 2 packs a day. FAMILY HISTORY: Negative for lung disease in early age. ALLERGIES: HE REPORTS NO DRUG ALLERGIES. REVIEW OF SYSTEMS: Ten-point review of systems completed, is negative. PHYSICAL EXAMINATION: VITAL SIGNS: He is afebrile. Heart rate 66, respiratory rates in the teens, oximetry is 92% on room air and 95% on 2 L cannula, blood pressure 113/48. HEENT: Pupils are equal. Sclerae are anicteric. NECK: Supple. LUNGS: I do not hear any wheezes listening to his chest. HEART: Regular rhythm. S1 and S2 are normal. ABDOMEN: Soft and nontender. EXTREMITIES: Without clubbing, cyanosis, or edema. NEUROLOGIC: Grossly nonfocal. LABORATORY DATA: White count 10, hemoglobin 10.5, platelets 146. Sodium 133, potassium 4.3, chloride 99, bicarb 25, BUN 28, creatinine 1.27. Chest x-ray reviewed by me shows nodular density of his right base, it is new. IMPRESSION: Fever with shortness of breath. I would treat him as though he has pneumonia with a chronic obstructive pulmonary disease exacerbation. He probably is aspirating given the frequency of his infections. He is willing to undergo speech pathology, but he is adamant and family is adamant that he never have a PEG placed and that he ought to continue with comfort feeds within reason. I suspect and the family states that most of what we may end up recommending for him, he may not do with regard to nutrition and type of feeds. His daughter says he definitely will not do thickened liquids at home. With regard to the pulmonary nodule, I would simply repeat a radiograph in 4 to 6 weeks. This may roller turner to be inflammatory and be gone in 6 weeks. TIME SPENT: This is a 50-minute consult, with greater 50% of the time was spent on the unit coordinating care. Job ID: [id number] MTDD
[2019-01-05] MEDS ORDERED: Aspirin 325 mg Enteric Coated Tablet PO SCH ×2 (21:00)
[2019-01-05] MEDS ORDERED: Simvastatin 5 MG TAB PO SCH (21:00)
[2019-01-06] MEDS: HYDROcodone/Acetaminophen 7.5/325 mg Tablet PO SCH ×3 (00:11→11:19)
[2019-01-06] MEDS: methylPREDNISolone Sod Succ 40 MG VIAL IVP SCH ×2 (01:54→08:31)
[2019-01-06] MEDS: Levothyroxine Sodium 75 MCG TAB PO SCH (05:55)
[2019-01-06] MEDS ORDERED: Levothyroxine Sodium 75 MCG TAB PO SCH (06:00)
[2019-01-06] MEDS: Insulin Regular 300 UNITS/3 ML VIAL SC PRN ×2 (06:23→11:18)
[2019-01-06] MEDS: Torsemide 10 MG TAB PO SCH (08:31)
[2019-01-06] MEDS: Pregabalin 75 MG CAP PO SCH (08:32)
[2019-01-06] MEDS: metFORMIN 500 MG TAB PO SCH (08:32)
[2019-01-06] MEDS: Amlodipine 5 MG TAB PO SCH (08:32)
--- NOTE | 2019-01-06 12:23 | RAD ---
XR Chest Pa Lat STANDARD History: COPD Comparison: Chest radiograph January 04, 2019 Findings: Similar appearance nodule right lung base. Lungs are hyperinflated with vascular crowding. Scarring both lung bases. Cardiac silhouette and mediastinal contours are within normal limits. No pneumothorax. Impression: No acute thoracic abnormality.
--- NOTE | 2019-01-06 14:03 | PRG ---
DATE OF SERVICE: 01/06/2019 SUBJECTIVE: Zac Goss has no complaints. He is ready to go home he says. OBJECTIVE: VITAL SIGNS: He is afebrile, heart rate 74, respiratory rate 16, oximetry is 93 on 2 L, and blood pressure 130/61. LUNGS: Clear with no wheezes. HEART: Regular rhythm. ABDOMEN: Soft. IMAGING: Chest x-ray done today shows persistence of a density at the right base. IMPRESSION: 1. Chronic obstructive pulmonary disease exacerbation. 2. Febrile illness on presentation. I have recommended simply that he have another chest x-ray in 4 to 6 weeks to see if this density goes away. This could be an inflammatory nodule. He still smokes two packs a day and will likely do so when he goes home, so he will need a slow steroid taper. He has been afebrile since admitted to the hospital. Dr. Morris will be happy to see him in the office in followup in 4 to 6 weeks. I met with family and answered all their questions. Job ID: [id number]
[2019-01-06] MEDS: cefTRIAXone\\ROCEPHIN 2 GM in Sodium Chloride 0.9% 100 ML IVPB SCH (14:14)
[2019-01-06 15:24] VITALS: BP 141/67; TEMP 98.2
--- NOTE | 2019-01-06 21:05 | DIS ---
DATE OF ADMISSION: 01/05/2019 DATE OF DISCHARGE: 01/06/2019 PRESENTING CHIEF COMPLAINT: Shortness of breath. HISTORY OF PRESENT ILLNESS: The patient was being treated for COPD exacerbation on outpatient basis by Dr. Hector Landaverde, his PCP, deteriorated somewhat, found to have new onset right lung nodule on outpatient imaging. Admitted with use of oxygen, given IV antibiotics, steroids, breathing treatments. The patient recovered quite nicely and was sitting up, ambulating and breathing on room air with no desaturations today prior to discharge. Tolerated diet well. Desired to go home. Some concern for some aspiration and dysphagia to ancillary history; however, the patient already has speech therapy pending next week with home health per Dr. Hector Landaverde's order as reported per the patient and does not want to wait for speech therapy's evaluation on an inpatient basis. One of the patient's major concerns is cost per day of admission. Blood cultures at no growth x2. Chest x-ray without any overt pneumonia. Right lung nodule continues to be present. DISCHARGE MEDICATIONS: 1. P.r.n. clonidine 0.1 mg. 2. Imdur 30 mg. 3. Lisinopril 20 mg. 4. Lovastatin 20 mg. 5. Metformin 1000 mg. 6. Lyrica 150 mg b.i.d. 7. Torsemide 10 mg daily. 8. Amlodipine 5 mg b.i.d. 9. Aspirin 325 mg at bedtime. 10. Levaquin 750 mg daily, transitioned from IV Levaquin. 11. Levothyroxine 75 mcg. 12. Prednisone burst 40 mg daily x5 days. 13. Zoloft 100 mg daily. Inpatient Rocephin discontinued. Recommendations by Dr. Chapa to transition the patient to longer oral steroid taper on outpatient basis. Continue home DuoNeb. Otherwise, follow up with home health speech therapy. DISCHARGE DIET: Heart healthy, ADA controlled on glucose. ACTIVITY: Ambulate p.r.n. with assistance. DISCHARGE CONDITION: Fair. DISCHARGE DISPOSITION: Discharged home with family. FOLLOWUP: Follow up with Dr. Hector Landaverde in next 3 to 5 days. Job ID: [id number]
[2019-01-07] MEDS ORDERED: predniSONE 20 MG TAB PO SCH (08:00)
== END 2019-01-06 15:15 | disposition home or self-care (01) | DRG 192 ==
LOC: SCSER 22:52 → SURG B 01-05 00:12
PROVIDERS: ADMIT Family Medicine; ATTEND Family Medicine
DX: J44.1 Chronic obstructive pulmonary disease with (acute) exacerbation (principal); E78.5 Hyperlipidemia, unspecified; I10 Essential (primary) hypertension; F32.9 Major depressive disorder, single episode, unspecified; F17.210 Nicotine dependence, cigarettes, uncomplicated; E11.40 Type 2 diabetes mellitus with diabetic neuropathy, unspecified; I25.10 Atherosclerotic heart disease of native coronary artery without angina pectoris; R91.1 Solitary pulmonary nodule; Z86.73 Personal history of transient ischemic attack (TIA), and cerebral infarction without residual deficits; Z90.49 Acquired absence of other specified parts of digestive tract; Z95.1 Presence of aortocoronary bypass graft; Z79.84 Long term (current) use of oral hypoglycemic drugs; Z79.82 Long term (current) use of aspirin; Z79.899 Other long term (current) drug therapy; Z99.81 Dependence on supplemental oxygen; Z87.01 Personal history of pneumonia (recurrent)
CPT/HCPCS: 36415; 36416; 71046; 80053; 81003; 83605; 85025; 87040; 94640; 94760; 96365; J0696; J1815; J1956; J2405; J2920; J3490; J7620; Q0162